=== PATIENT | male | born 1960 | race Caucasian/White ===

== ENCOUNTER → 2018-03-15 09:00 | Outpatient (CLI) | payer MEDICAID, SELFPAY ==
--- NOTE | 2018-03-15 09:06 | US_ITS ---
US abdomen limited History:Right upper quadrant pain and vomiting Ordering Physician:Татьяна Payan Patient Age: 57 years Comparison:None Findings: Pancreas:Unremarkable. No obvious mass or abnormal fluid collection. No ductal dilatation Liver:No focal liver lesions demonstrated. Homogeneous echogenicity. No intrahepatic biliary ductal dilatation evident. There is some scattered areas of increased echogenicities suggesting fatty liver Right Kidney:Unremarkable. Normal size and echogenicity. No hydronephrosis Gallbladder:Gallstones are present. No gallbladder wall thickening or pericholecystic fluid or biliary dilatation. Common bile duct measures 4 mm Impression:Cholelithiasis
== END ==
PROVIDERS: PCP Nurse Practitioner; Visit Provider Nurse Practitioner
DX: R11.0 Nausea (principal)
CPT/HCPCS: 76705

== ENCOUNTER → 2018-04-06 08:47 | Outpatient (CLI) | payer MEDICAID, SELFPAY ==
[2018-04-05 15:34] LABS: Basophils # 0.1 K/mm3 (0-0.2); Basophils % 1.1 % (0.1-2.0); Eosinophils # 0.2 K/mm3 (0.0-0.4); Eosinophils % 2.8 % (0.1-12.0); Hemoglobin 14.9 g/dL (14.1-18.0); Lymphocytes # 1.5 K/mm3 (0.7-4.5); Lymphocytes % 20.1 K/mm3 (10-50); Mean Corpuscular HGB Conc 32.4 g/dL (31.8-35.4); Mean Corpuscular Volume 86.3 fl (80-94); Mean Platelet Volume 7.5 fl (7.4-10.4); Monocytes # 0.4 K/mm3 (0.1-1.0); Monocytes % 5.2 % (1.7-9.3); Neutrophils # 5.3 K/mm3 (1.8-7.8); Neutrophils % 70.8 % (37.0-80.0); Platelet Count 251 K/mm3 (142-424); Red Blood Count 5.33 M/mm3 (4.60-6.20); Red Cell Distribution Width 14.8 % (11.5-17.5); White Blood Count 7.4 K/mm3 (4.8-10.8)
== END ==
PROVIDERS: PCP Nurse Practitioner; Visit Provider Surgery
DX: K81.1 Chronic cholecystitis (principal)
CPT/HCPCS: 36415; 85025

== ENCOUNTER → 2018-05-30 13:44 | Outpatient (CLI) | payer MEDICAID, SELFPAY ==
--- NOTE | 2018-05-30 13:50 | US_ITS ---
US scrotum Ordering Physician: Татьяна Payan Patient Age: 58 years: Male HISTORY: ITS.REASON: ENLARGEMENT OF SCROTOL SAC.. Pain less. First noted 4-5 weeks ago by caregiver TECHNIQUE: Ultrasound of the scrotum and right groin region COMPARISON :None available FINDINGS RIGHT INGUINAL MASS extending to the RIGHT HEMISCROTUM: The patient has a bulging mass at the right inguinal region extending down to the scrotum. He has no pain at the mass nor at at the scrotum..This was first noted 4-5 weeks ago by caregiver. This mass is relatively soft compressible; not hard nor firm. Visually I anticipated typical inguinal hernia but it is NOT.. This mass does not appear to be bowel loop or a typical hernia on ultrasound examination.. No peristalsis or movement within it This very large mass has a more homogeneous echogenic solid mass appearance., With no peristalsis to suggest bowel loops. Modest color Doppler flow observed.. In fact on ultrasound we are suspect it is a large solid mass or Lipoma.... Stool within large bowel also considered but would expect the patient to have greater abdominal distention and abdominal pain and he does not.... Recommend a CT abdomen/pelvis with oral and IV contrast further evaluate this mass at right groin] . This mass measures over 15 cm length X over 13 cm transverse measurement. But is likely overall larger this since it was beyond the span and scope of the transducer [id number] RIGHT HEMISCROTUM: The right testicle shows lack of color Doppler flow which is suggestive of torsion. I personally observe scanning to this area. However the patient has no pain here... I discussed this finding with Татьяна Martinez . & Encouraged, urology follow-up tomorrow Wednesday.. The fact the patient had no pain and symptoms and findings of an here for one month may disc less critically urgent,. Particularly in this patient. Question that this large left groin mass is compromised the artery and vein to left testicle. Long-standing . RIGHT TESTICLE is generous in size measuring 4.6 cm in length as 3.45 cm x 2.6 cm.. However there is no testicular mass or inhomogeneous as can be seen with a missed torsion. Actually the right testicle is very homogeneous only slightly larger than the left but with no edematous appearance appreciable ultrasound ... Cystic area above the left testicle is most likely a Spermatocele. Partially septated. This measures up to at nearly 3 cm x 1.5 cm cm.. Small hydrocele surrounding the right testicle otherwise noted. The head of the epididymis appears normal 1.15 cm, as does the remainder epididymis. . LEFT HEMISCROTUM. large cystic area above the left testicle is most likely a spermatocele... This measures up to nearly 3 cm x 2 cm. A second small spermatocele measuring 7.5 mm also seen at the head of epididymis. Otherwise the solid Head of epididymis in this area measures 1.2 cm.. The remainder of epididymis unremarkable on left LEFT TESTICLE:measures 3.9 x 3.1 x 2.3 cm. No left testicular mass is evident. In contrast to the right the left testicle demonstrates normal color Doppler flow. .. IMPRESSION 1. Very large over 15 cm mass right groin extending to the scrotum displacing the testicles leftward.. ... On ultrasound appearance suggests large solid mass,....- Recommend CT abdomen/pelvis with oral & IV contrast to further characterize. Considerations include large amount fixed solid stool within a loop of inguinal hernia- vs possible Large Lipoma.. This is long-standing feature, but was first noted 4-6 weeks ago by caregiver. Patient is not tender in this area with no testicular tenderness. 2. Lack of color Doppler flow to the right testicle-typically is suggestive torsion right testicle. However patien
== END ==
PROVIDERS: PCP Nurse Practitioner; Visit Provider Nurse Practitioner
DX: N50.89 Other specified disorders of the male genital organs (principal)
CPT/HCPCS: 76870

== ENCOUNTER → 2018-06-01 09:40 | Outpatient (CLI) | payer MEDICAID, SELFPAY ==
[2018-06-01 10:05] LABS: Blood Urea Nitrogen 12 mg/dL (7-18); Creatinine,Serum 1.06 mg/dL (0.70-1.30); Estimated Glomerular Filt Rate 72 ml/min (>60); GFR (African American) 87 ML/MIN (>60)
--- NOTE | 2018-06-01 10:10 | CT_ITS ---
CT abdomen pelvis w con CLINICAL INDICATION: Right upper quadrant pain ITS.REASON: MASS ORDERING PHYSICIAN: Татьяна Payan PATIENT AGE: 58 years COMPARISON: None TECHNIQUE: Axial images obtained with sagittal and coronal reformats. All CT scans at the facility use one or more dose reduction, viz: automated exposure control, ma/kV adjustment per patient size (including targeted exams where dose is matched to indication, i.e. head), or iterative reconstruction technique. PROCEDURE: Oral Contrast: None IV Contrast: 75 mL's of Isovue 370. FINDINGS: Atelectatic or fibrotic changes are present in the left lung base. Fatty liver. No focal liver lesions evident. Spleen, adrenal glands, and pancreas have an unremarkable appearance. A 10 mm stone is present in the lower pole left kidney. No hydronephrosis. No ureteral calculi. There is a retroaortic left renal vein. Scattered small lymph nodes are present in the retroperitoneum. There has been a prior cholecystectomy. No ductal dilatation. Postsurgical changes are present involving the intra-abdominal wall. There is small umbilical hernia containing fat. Diverticulosis of the descending colon. No evidence of diverticulitis. No evidence of appendicitis There is a moderate-sized fat-containing right inguinal hernia and a small fat-containing left inguinal hernia.. Asymmetric fat density is noted in the left lower lumbar and upper gluteal region consistent with a lipoma. IMPRESSION: 1. Left nephrolithiasis. 2. Fatty liver. No liver mass evident 3. Bilateral inguinal hernias right larger than left
== END ==
PROVIDERS: Visit Provider Nurse Practitioner
DX: R19.00 Intra-abdominal and pelvic swelling, mass and lump, unspecified site (principal)
CPT/HCPCS: 36415; 74177; 82565; 84520; Q9967

== ENCOUNTER → 2018-06-28 13:26 | Outpatient (CLI) | payer MEDICAID, SELFPAY ==
--- NOTE | 2018-06-28 13:29 | XR_ITS ---
XR KUB Ordering Physician: Medardo Bartlett MD Patient Age: 58 years: Male HISTORY: ITS.REASON: Kidney Stones Left flank pain. Kidney stone TECHNIQUE: AP supine KUB COMPARISON :Previous CT abdomen pelvis 06/01/2018 FINDINGS On the recent June 01, 2018 CT showed nephrolithiasis on left. . There is now a left ureteral stent in place. . The superior pigtail appears to extend to the upper pole of the left kidney. The inferior pigtail projected over the inferior bladder. Calculus at the lower pole of the left kidney is again identified it appears be more fragmented than previous studies with one of the larger thin fragments measuring over 8 mm today's plain film. Again it does appear to be relatively fragmented compared to June 01, 2018. Suspect reflecting interval lithotripsy procedure.? The right kidney unremarkable. . There is a nonspecific bowel gas pattern clips right upper quadrant from cholecystectomy. Osseous structures unremarkable. IMPRESSION: Left ureteral stent in place . This KUB suggest More fragmented of stone at the lower pole left kidney. Correlation required
== END ==
PROVIDERS: PCP Nurse Practitioner; Visit Provider Urology
DX: N20.0 Calculus of kidney (principal)
CPT/HCPCS: 74018

== ENCOUNTER → 2018-08-02 09:58 | Outpatient (CLI) | payer MEDICAID, SELFPAY ==
--- NOTE | 2018-08-02 10:01 | XR_ITS ---
XR KUB HISTORY: ITS.REASON: Kidney Stones ORDERING PHYSICIAN: Medardo Bartlett MD PATIENT AGE: 58 years COMPARISON: 06/28/2018 FINDINGS: The bowel gas pattern is unremarkable. No obvious obstruction.. Several small calculi noted along the lower pole of left kidney measuring up to 4 mm. No obvious ureteral calculi. Left ureteral stent has been removed. IMPRESSION: Left nephrolithiasis.
== END ==
PROVIDERS: PCP Nurse Practitioner; Visit Provider Urology
DX: N20.0 Calculus of kidney (principal)
CPT/HCPCS: 74018

== ENCOUNTER → 2018-11-29 10:52 | Outpatient (CLI) | payer MEDICAID, SELFPAY ==
--- NOTE | 2018-11-29 10:55 | XR_ITS ---
XR KUB HISTORY: ITS.REASON: kidney stones ORDERING PHYSICIAN: Medardo Bartlett MD PATIENT AGE: 58 years COMPARISON: 08/02/2018 FINDINGS: The bowel gas pattern is unremarkable. No obvious obstruction.. No abnormal calcifications are evident. No obvious renal or ureteral calculi.. No acute bony anomalies evident. Previously noted left renal calculi are apparent on today's exam IMPRESSION: Negative KUB, no acute finding
== END ==
PROVIDERS: PCP Nurse Practitioner; Visit Provider Urology
DX: N20.0 Calculus of kidney (principal)
CPT/HCPCS: 74018

== ENCOUNTER → 2019-05-30 13:01 | Outpatient (CLI) | payer MEDICAID, SELFPAY ==
--- NOTE | 2019-05-30 13:06 | XR_ITS ---
PROCEDURE: XR KUB CLINICAL INDICATION: stones COMPARISON: ABDPELW CT abdomen pelvis w con from 06/01/2018 FINDINGS: Gas pattern-The bowel gas pattern is unremarkable. No obvious obstruction. Calcifications-No abnormal calcifications are evident. No obvious renal or ureteral calculi. Bones-No acute bony anomalies evident. IMPRESSION: Negative KUB. No renal or ureteral calculi Dictated by: Fabián Arnold MD 05/30/2019 13:28 Electronically signed by Fabián Arnold MD in [place] 05/30/2019 13:28
== END ==
PROVIDERS: PCP Nurse Practitioner; Visit Provider Urology
DX: N20.0 Calculus of kidney (principal)
CPT/HCPCS: 74018

== ENCOUNTER 2019-12-18 08:42 | Inpatient (IN) | payer MEDICAID, SELFPAY ==
[2019-12-18] VITALS (27 sets, daily range): BP systolic 101–167; BP diastolic 55–106; PULSE 90–124; RESP 16–30; TEMP 36.2–43; O2SAT 94–100; BMI 29.9; BMI 34.8
--- NOTE | 2019-12-18 08:51 | ECG_ITS ---
APPROVED REPORT Exam: Resting ECG HR:109 bpm ECG Measurements Heart Rate 109 AXES OK 134 P 42 QRSd 86 QRS 82 QT 338 T 4 QTc 455 <Conclusion> Sinus tachycardia RSR' or QR pattern in V1 suggests right ventricular conduction delay NDST-T Changes Abnormal ECG Electronically signed by : Jose Carrion, 12/18/2019 11:07:42
--- NOTE | 2019-12-18 09:00 | CT_ITS ---
PROCEDURE: CT ABDOMEN PELVIS WO CON CLINICAL INDICATION: abdominal pain Abdominal pain with vomiting and fever COMPARISON: ABDPELW CT abdomen pelvis w con from 06/01/2018 TECHNIQUE: Axial images obtained with sagittal and coronal reformats. All CT scans at the facility use one or more dose reduction, viz: automated exposure control, ma/kV adjustment per patient size (including targeted exams where dose is matched to indication, i.e. head), or iterative reconstruction technique. FINDINGS: LOWER THORAX: Mild atelectatic changes in the lung bases. There is thickening of the distal esophagus with air in the distal esophagus which could be due to reflux or esophagitis. ABDOMEN & PELVIS: Exam is limited without IV and oral contrast. The stomach is fluid-filled and mildly distended with an air-fluid level in the stomach. There has been a prior cholecystectomy. The jejunum is fluid-filled with a few air-fluid levels. Air-fluid levels are present within the ileum with mild distention. There is a prominent distended loop of bowel in the right mid abdominal region possibly due to a cecal volvulus. The distal colon is decompressed. There is a small amount of ascites with fluid in the perihepatic region and right upper quadrant. The point of obstruction of the colon is actually in the proximal descending colon. There is a large right inguinal hernia containing peritoneal fat and peritoneal vessels. There is a smaller left inguinal hernia containing fat and a small amount of fluid. Payne catheter is present. There is a small amount fluid in the pelvic region. 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 Mild dilatation of the small bowel with air-fluid levels secondary to the obstruction of the colon. No obvious pneumatosis or portal gas. Bilateral inguinal hernias right larger than left containing fat vessels and a small amount fluid in the left inguinal hernia. Dr. Cope was notified of the findings by telephone 12/18/2019 at 11:30 a.m. Dictated by: Fabián Arnold MD 12/18/2019 11:44 Electronically signed by Fabián Arnold MD in [place] 12/18/2019 11:44
--- NOTE | 2019-12-18 09:00 | XR_ITS ---
PROCEDURE: XR CHEST AP CLINICAL HISTORY: sob Shortness of air, congestion COMPARISON: CXR CHEST(2 VIEWS-NOT PORTABLE) from 03/14/2013 FINDINGS: The cardiomediastinal silhouette and pulmonary vascularity are within normal limits. Surgical clips are present in the right paratracheal and left paratracheal region. Lungs are otherwise clear. Dilated loop of bowel noted in the right upper quadrant. Please see abdomen CT for further discussion IMPRESSION: No acute findings of the chest. Dilated loop of bowel in right upper quadrant Dictated by: Fabián Arnold MD 12/18/2019 12:06 Electronically signed by Fabián Arnold MD in [facility] 12/18/2019 12:06
--- NOTE | 2019-12-18 09:00 | CT_ITS ---
PROCEDURE: CT HEAD/BRAIN WO CON CLINICAL INDICATION: abdominal pain, confusion, SOB Altered mental status, altered level of consciousness, confusion, disorientation COMPARISON: No exams were available for comparison TECHNIQUE: Axial images obtained. All CT scans at the facility use one or more dose reduction, viz: automated exposure control, ma/kV adjustment per patient size (including targeted exams where dose is matched to indication, i.e. head), or iterative reconstruction technique. FINDINGS: No midline shift, mass effect, intracranial hemorrhage, hydrocephalus, or extra-axial fluid collection is evident. There is dense calcification involving the anterior aspect of the falx which is nonspecific. The calvarium has an unremarkable appearance. No mastoid effusion. There is opacified left mid ethmoid air cell. IMPRESSION: No acute intracranial finding Dictated by: Fabián Arnold MD 12/18/2019 11:22 Electronically signed by Fabián Arnold MD in [place] 12/18/2019 11:22
--- NOTE | 2019-12-18 09:13 | HMH.EDGENADL ---
ED Disposition Clinical Impression: Cecal volvulus Disposition: Admitted As Inpatient Condition on Discharge: Serious - Critical Care Critical Care Time: Yes Attestation: On 12/18/19, the high probability of a clinically significant, sudden or life threatening deterioration of the following system(s) required my full and direct attention, intervention and personal management. The time I documented below is in addition to time spent performing reported procedures but includes the following listed in this critical care notation. Vital system(s) involved:: Circulatory Failure My critical care processes included: Assessment & monitoring of V/S, Initial and Re-exams, Data Review/Interpretation, Coordinating Care, Documentation Medical Decision Making - Mateo Inquiry Pt receiving controlled substance: No Mateo was queried for this patient: No Vital Signs: 12/18/19 08:45 12/18/19 10:22 12/18/19 11:10 Temperature 99.7 F H Temperature Source Rectal Pulse Rate Pulse Rate [Right] 104 H 95 H 104 H Respiratory Rate 24 20 20 Blood Pressure Blood Pressure [Right Arm] 115/90 154/103 H 134/105 H Blood Pressure Mean [Right Arm] 98 120 114 Blood Pressure Source [Right Arm] Blood Pressure Position [Right Arm] Supine Supine 02 Sat by Pulse Oximetry 94 L 99 98 Oxygen Delivery Method Room Air Nasal Cannula Nasal Cannula Oxygen Flow Rate (LPM) 2 2 12/18/19 12:39 12/18/19 12:48 12/18/19 16:21 Temperature 98.2 F Temperature Source Pulse Rate 122 H 90 Pulse Rate [Right] 114 H Respiratory Rate 25 H 20 Blood Pressure 126/55 L Blood Pressure [Right Arm] 129/95 H Blood Pressure Mean [Right Arm] 106 Blood Pressure Source [Right Arm] Blood Pressure Position [Right Arm] Supine 02 Sat by Pulse Oximetry 97 Oxygen Delivery Method Nasal Cannula Oxygen Flow Rate (LPM) 2 12/18/19 16:30 12/18/19 16:45 12/18/19 17:00 Temperature 97.2 F L 97.2 F L 98.8 F Temperature Source Rectal Rectal Rectal Pulse Rate Pulse Rate [Right] 91 H 99 H 90 Respiratory Rate 20 20 18 Blood Pressure Blood Pressure [Right Arm] 167/106 H 163/101 H 133/98 H Blood Pressure Mean [Right Arm] 126 121 109 Blood Pressure Source [Right Arm] Manual Cuff/ Auscultation Automatic Cuff Automatic Cuff Blood Pressure Position [Right Arm] Supine Supine Supine 02 Sat by Pulse Oximetry 100 100 99 Oxygen Delivery Method Mechanical Ventilation Mechanical Ventilation Mechanical Ventilation Oxygen Flow Rate (LPM) 12/18/19 17:15 12/18/19 17:23 12/18/19 17:45 Temperature 98.9 F 98.2 F Temperature Source Rectal Rectal Pulse Rate Pulse Rate [Right] 91 H 95 H Respiratory Rate 22 20 Blood Pressure Blood Pressure [Right Arm] 125/86 121/81 Blood Pressure Mean [Right Arm] 99 94 Blood Pressure Source [Right Arm] Automatic Cuff Automatic Cuff Blood Pressure Position [Right Arm] Supine Supine 02 Sat by Pulse Oximetry 100 100 99 Oxygen Delivery Method Mechanical Ventilation Mechanical Ventilation Oxygen Flow Rate (LPM) 12/18/19 18:15 12/18/19 18:45 12/18/19 18:48 Temperature 98.7 F 98.9 F Temperature Source Rectal Rectal Pulse Rate Pulse Rate [Right] 100 H 100 H Respiratory Rate 20 22 Blood Pressure Blood Pressure [Right Arm] 129/90 116/81 Blood Pressure Mean [Right Arm] 103 92 Blood Pressure Source [Right Arm] Automatic Cuff Automatic Cuff Blood Pressure Position [Right Arm] Supine Supine 02 Sat by Pulse Oximetry 100 100 Oxygen Delivery Method Mechanical Ventilation Mechanical Ventilation Mechanical Ventilation Oxygen Flow Rate (LPM) 12/18/19 18:56 12/18/19 19:15 12/18/19 19:51 Temperature 97.9 F Temperature Source Rectal Pulse Rate Pulse Rate [Right] 107 H Respiratory Rate 30 H Blood Pressure Blood Pressure [Right Arm] 124/85 Blood Pressure Mean [Right Arm] 98 Blood Pressure Source [Right Arm] Automatic Cuff Blood Pressure Position [Right Arm] Supine 02
[2019-12-18 09:18] LABS: Appearance,Urine CLEAR (Clear); Blood, Urine Negative (Negative); Color,Urine AMBER (Yellow); Glucose,Urine (UA) Negative (Negative); Ketones,Urine TRACE (Negative); Leukocyte Esterase,Urine Negative (Negative); Microscopic, Urine URINE MICROSCOPIC (MICROSCOPIC); Nitrate,Urine Negative (Negative); Protein,Urine 2+ (Negative); Specific Gravity, Urine >= 1.030 (1.005-1.030)
[2019-12-18 09:22] LABS: ABG Base Excess -6.5 mmol/L (-2.4-2.3); ABG HCO3 17.1 mmhg (22.0-26.0); ABG Oxygen Saturation 96 % (90-100); ABG PCO2 24.1 mmhg (35.0-45.0); ABG PH 7.47 mmol/L (7.35-7.45); ABG PO2 77.2 mmhg (80-100); ABG TCO2 17.9 mmhg (23-27)
[2019-12-18 09:24] LABS: Oxygen ROOM AIR %; Source L BRACHIAL
--- NOTE | 2019-12-18 09:26 | PC.NURSE ---
Lab notified to obtain blood specimen
[2019-12-18 09:29] LABS: Bilirubin,Urine Negative (Negative)
[2019-12-18 09:38] LABS: Bacteria,Urine 1+ /lpf; Squamous Epithelial Cell,Urine Occasional #/hpf (0-5)
--- NOTE | 2019-12-18 10:00 | PC.NURSE ---
Lab here to obtain blood
[2019-12-18 10:20] LABS: Adenovirus,PCR Not Detected (NotDetected); Bordetella Pertussis Not Detected (NotDetected); Chlamydophila Pneumoniae, PCR Not Detected (NotDetected); Coronavirus 19, PCR Not Detected (NotDetected); Coronavirus 229E Not Detected (NotDetected); Coronavirus NL63 Not Detected (NotDetected); Coronavirus OC43 Not Detected (NotDetected); Coronovirus HKU1,PCR Not Detected (NotDetected); Human Metapneumovirus Not Detected (NotDetected); Influenza A, PCR Not Detected (NotDetected); Influenza AH1, 2009 Not Detected (NotDetected); Influenza AH1, PCR Not Detected (NotDetected); Influenza AH3,PCR Not Detected (NotDetected); Influenza B, PCR Not Detected (NotDetected); Mycoplasma Pneumoniae, PCR Not Detected (NotDected); Parainfluenza 1, PCR Not Detected (NotDetected); Parainfluenza 2, PCR Not Detected (NotDetected); Parainfluenza 3, PCR Not Detected (NotDetected); Parainfluenza 4, PCR Not Detected (NotDetected); Respiratory Syncytial Virus Not Detected (NotDetected); Rhinovirus/Enterovirus Not Detected (NotDetected)
[2019-12-18 10:23] LABS: Basophils % 0.2 % (0.1-2.0); Lymphocytes % 5.4 % (10-50)
--- NOTE | 2019-12-18 10:26 | PC.NURSE ---
CT scans delayed d/t difficulty to obtain blood samples, lab obtains blood samples at this time.
[2019-12-18 10:28] LABS: Chloride 103 mmol/L (98-107)
[2019-12-18 10:29] LABS: Eosinophils # 0.1 K/mm3 (0.0-0.4); Eosinophils % 0.7 % (0.1-12.0); Hematocrit 53.3 % (42.0-52.0); Lymphocytes # 0.8 K/mm3 (0.7-4.5); Mean Corpuscular HGB Conc 36.5 g/dL (31.8-35.4); Mean Corpuscular Hemoglobin 31.2 pg (27.0-31.2); Mean Corpuscular Volume 85.5 fl (80-94); Monocytes % 7.2 % (1.7-9.3); Neutrophils # 12.5 K/mm3 (1.8-7.8); Neutrophils % 86.6 % (37.0-80.0); Platelet Count 274 K/mm3 (142-424); Red Blood Count 6.24 M/mm3 (4.60-6.20); Red Cell Distribution Width 15.1 % (11.5-17.5); Sodium 139 mmol/L (136-145); White Blood Count 14.4 K/mm3 (4.8-10.8)
[2019-12-18 10:31] LABS: Alanine Aminotransferase 56 U/L (12-78); Alkaline Phosphatase 98 U/L (38-126); Aspartate Amino Transferase 51 U/L (17-59); Bilirubin,Total 2.2 mg/dl (0.2-1.3); Blood Urea Nitrogen 51 mg/dl (9-20); Carbon Dioxide 20 mmol/L (22.0-30.0); Creatinine Clearance Estimated 55 mL/min (50-200); Estimated Glomerular Filt Rate 42 ml/min (>60); GFR (African American) 50 ML/MIN (>60)
[2019-12-18 10:32] LABS: Albumin Level 4.2 g/dl (3.5-5.0); Albumin/Globulin Ratio 1.3 (1.1-1.8); Calcium 9.4 mg/dl (8.4-10.2); Globulin 3.2 g/dL (1.3-3.2); Glucose 170 mg/dl (74-100); Lipase 48 U/L (23-300); Total Protein,Serum 7.4 g/dl (6.3-8.2)
[2019-12-18 10:34] LABS: Lactic Acid 3.9 mmol/L (0.7-2.1)
[2019-12-18 10:35] LABS: Hemoglobin 19.5 g/dL (14.1-18.0)
[2019-12-18 10:36] LABS: MANUAL DIFFERENTIAL MANUAL DIFFERENTIAL (MANUAL DIFF)
--- NOTE | 2019-12-18 10:37 | PC.NURSE ---
notified that pt meets criteria for severe sepsis, states he wishes to give zosyn and vanc, notified pharm for dosing
--- NOTE | 2019-12-18 10:40 | PC.NURSE ---
Pt to rad
[2019-12-18 10:45] LABS: Troponin I 0.22 ng/ml (0.00-0.034)
[2019-12-18 10:49] LABS: Lymphocytes % 3 % (10-50); Monocytes % 7 % (2-9); Neutrophils % 90 % (42-76); Total Cells Counted 100
[2019-12-18 10:50] LABS: Free T4 (Free Thyroxine) 1.86 ng/dl (0.78-2.19); Platelet Estimate Normal; RBC Morphology Normal
[2019-12-18 11:04] LABS: Thyroid Stimulating Hormone 3.45 uIU/mL (0.465-4.68)
[2019-12-18 11:23] LABS: Coronavirus 19 IgG Antibody Negative (Negative); Coronavirus 19 IgM Antibody Negative (Negative)
--- NOTE | 2019-12-18 11:32 | PC.NURSE ---
speaking to Dr Arnold
--- NOTE | 2019-12-18 11:37 | PC.NURSE ---
Notified Dr Good office of need for consult with ER MD, stated they would have him call us back
--- NOTE | 2019-12-18 11:42 | PC.NURSE ---
Dr Cope consulting with Dr Good
--- NOTE | 2019-12-18 12:08 | PC.NURSE ---
DR WILEY AT BEDSIDE
--- NOTE | 2019-12-18 12:33 | HMH.GSCON ---
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 He is a poor historian. He reportedly complained of somewhat of an upset stomach a couple of days ago. However, his symptoms of diminished appetite with nausea had increased and his guardian felt that he needed medical care. He was brought to the emergency department where he was seen and evaluated. He was found to have findings of dehydration and acidosis. He underwent CT scan which revealed findings with cecal volvulus and some ascites. Surgical consultation was obtained. Review of Systems - Review of Systems Review of systems:: unable to obtain [facility] History I have reviewed the patient's past medical history: Yes Medical History: Reports:: Hyperlipidemia, Hypertension Denies:: Cancer, Diabetes Mellitus Type 1, Diabetes Mellitus Type 2, Internal Pacemaker, MRSA, Seizures *Have you ever received a pneumonia vaccine?: No *Have you received a flu vaccine this season?: No Other Medical History: Reports: Hypothyroidism. Denies: Blood Transfusion Reaction Laterality Cases: Bilateral: Tonsillectomy Other Surgeries: Yes: Cholecystectomy, Thyroidectomy. No: Pacemaker Amputation: No Fractures: No - *Social History Smoking Status: Never smoker Alcohol Intake: never Substance Use Type: denies use *Occupational Status:: disabled Housing: house Household Members: family *Travel in the last 8 weeks: None Family Hx:: Unable to obtain Meds Home Medications Medication Instructions Recorded Confirmed Type Dicyclomine HCl [Bentyl 10mg 0 mg PO DAILY 04/29/18 05/30/19 History capsule] Garlic 1 each PO DAILY 04/29/18 05/30/19 History Levothyroxine Sodium 125 mcg PO DAILY 04/29/18 05/30/19 History [Levothyroxine 125mcg (0.125mg) Tab] Metoprolol Tartrate 50 mg PO DAILY 04/29/18 05/30/19 History Montelukast Sodium [Montelukast 10 mg PO DAILY 04/29/18 05/30/19 History 10mg Tab] [place]-3 Acid Ethyl Esters 1 gm PO DAILY 04/29/18 05/30/19 History Allergies Allergy/AdvReac Type Severity Reaction Status Date / Time No Known Allergies Allergy Verified 05/30/19 12:27 Exam Vital signs and Labs for Last 24 Hours: Temp Pulse Resp BP Pulse Ox 99.7 F H 104 H 20 134/105 H 98 12/18/19 08:45 12/18/19 11:10 12/18/19 11:10 12/18/19 11:10 12/18/19 11:10 Laboratory Results - last 24 hr 12/18/19 09:10: Urine Color Stephania, Urine Appearance Clear, Urine pH 6.0, Ur Specific [place] >= 1.030, Urine Protein 2+, Urine Glucose (UA) Negative, Urine Ketones Trace, Urine Blood Negative, Urine Nitrate Negative, Urine Bilirubin Negative, Urine Urobilinogen 1.0, Ur Leukocyte Esterase Negative, Urine RBC 3-5, Urine WBC 3-5, Ur Squamous Epith Cells Occasional, Urine Bacteria 1+ 12/18/19 09:20: Specimen Source L brachial, O2 % Room air, ABG pH 7.47 H, ABG pCO2 24.1 L, ABG pO2 77.2 L, ABG HCO3 17.1 L, ABG Total CO2 17.9 L, ABG O2 Saturation 96, ABG Base Excess -6.5 L 12/18/19 10:10: WBC 14.4 H, RBC 6.24 H, Hgb 19.5 H*, Hct 53.3 H, MCV 85.5, MCH 31.2, MCHC 36.5 H, RDW 15.1, Plt Count 274, MPV 9.0, Neut % (Auto) 86.6 H, Lymph % (Auto) 5.4 L, [place] % (Auto) 7.2, Eos % (Auto) 0.7, Baso % (Auto) 0.2, Neut # (Auto) 12.5 H, Lymph # (Auto) 0.8, [place] # (Auto) 1.0, Eos # (Auto) 0.1, Baso # (Auto) 0.0, Total Counted 100, Neutrophils % (Manual) 90 H, Lymphocytes % (Manual) 3 L, Monocytes % (Manual) 7, Platelet Estimate Normal, RBC Morphology Normal 12/18/19 10:10: Sodium 139, Potassium 3.0 L, Chloride 103, Carbon Dioxide 20 L, Anion Gap 19.0 H, BUN 51 H, Creatinine 1.70 H, Estimated Creat Clear 55, Estimated GFR 42 L, Est GFR ( Amer) 50 L, Glucose 170 H, Calcium 9.4, Total Bilirubin 2.2 H, AST 51, ALT 56, Alkaline Phosphatase 98, Troponin I 0.22 H, Total Protein 7.4, Albumin 4.2, Globulin 3.2, Albumin/Globulin Rati
--- NOTE | 2019-12-18 12:37 | PC.NURSE ---
Surgery stated to hold vanc for preop so will not be infused until before surgery
--- NOTE | 2019-12-18 12:51 | PC.NURSE ---
Pt to surgery at this time
--- NOTE | 2019-12-18 12:53 | PC.NURSE ---
CALLING DR ERAZO AT THIS TIME
--- NOTE | 2019-12-18 12:53 | PC.NURSE ---
speaking to dr baer
--- NOTE | 2019-12-18 12:54 | PC.NURSE ---
SPEAKING WITH DR ERAZO
[2019-12-18 14:18] LABS: Reflex Lactic Add Lactic Reflex
--- NOTE | 2019-12-18 15:07 | P.CONPHA_ITS ---
[facility] Pharmacy VTE Monitoring - Patient Demographics Admission date: 12/18/19 Report Date: 12/18/19 Time: 15:07 Allergies/Adverse Reactions: Patient Allergies No Known Allergies Allergy (Verified 05/30/19 12:27) Height: 1.65 m Weight: 81.647 kg Patient Problems: Current Active Problems Cecal volvulus (Acute) - VTE Risk Labs: VTE Related Lab Results Hgb 19.5 g/dL (14.1-18.0) H* 12/18/19 10:10 Hct 53.3 % (42.0-52.0) H 12/18/19 10:10 Plt Count 274 K/mm3 (142-424) 12/18/19 10:10 BUN 51 mg/dl (9-20) H 12/18/19 10:10 Creatinine 1.70 mg/dl (0.66-1.25) H 12/18/19 10:10 Estimated Creat Clear 55 mL/min (50-200) 12/18/19 10:10 Clinical Trial Participant: No - Prophylaxis VTE Prophylaxis Ordered?: Yes Types of VTE Prophylaxis: TEDS Knee High
--- NOTE | 2019-12-18 15:24 | HMH.OPNOTE ---
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 History difficult to obtain from the patient. He was brought to the emergency department due to abdominal pain. It was felt that he was cold and clammy and the caregivers brought him to the emergency department where he was evaluated. His work-up included CT scan which revealed findings of cecal volvulus. Surgery was consulted. Patient was found to be significantly ill with signs of significant dehydration and acidosis with focal peritonitis in the right upper quadrant. Plan was made for laparotomy for cecal volvulus with possible necrosis. 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 Cecum was in the right upper quadrant. There was evidence of cecal volvulus with full-thickness necrosis of the cecum without perforation. Cecum was quite foul-smelling. Operative note:: Patient was taken emergently to the operating room. He was given preoperative intravenous antibiotics. In the operating room he was placed in a supine position. General anesthesia was induced via endotracheal tube. His abdomen was prepped and draped in standard surgical fashion. Upper midline laparotomy incision was made and dissection was carried down through the generous subcutaneous tissues to the fascia. Fascia was incised with electrocautery. There was some dark somewhat hemorrhagic fluid aspirated from the abdominal cavity. Exposure was achieved with extension of the incision superiorly and inferiorly. Bowel was somewhat distended and edematous. Abdominal exploration revealed necrotic gangrenous cecum essentially tightly impacted in the right upper quadrant. With some gentle traction this was able to be delivered through the wound. 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 The ileum was divided with a DESIREE linear cutting stapling device. Colon Distal to the area of volvulus and necrosis was divided with a DESIREE 75 stapling device. Mesentery was divided with the Enseal with doubly ligating vascular structures with 0 Surgilon. Gangrenous necrotic cecum was sent off as specimen. Attention was then turned to re-anastomosis. However, given the patient's chronic malrotation of the gut to allow for anastomosis without kinking additional small bowel was excised with DESIREE linear cutting stapling device with small bowel mesentery divided with the Enseal. A rpll-py-asek anastomosis was then created with a DESIREE-75 type stapling device. The enterotomy defect was then closed with a TA 60 be stapling device. Staple line was reinforced at its angle with a couple of 3-0 Surgilon sutures. Due to the patient's chronic congenital anomaly as well as small bowel mesentery initially was somewhat difficult to allow the anastomosis to lie in the position which would prevent kinking of the small bowel. Additional exploration was carried out. Please note that the omentum originated from the left upper abdomen where the transverse colon was likely located. Ultimately the small bowel anastomosis was oriented into the region of the right lower quadrant with the omentum in the left abdomen. There appeared to be good hemostasis. Fascia was closed with #2 Novafil x2. Subcutaneous tissues were irrigated. Skin was closed with skin rosenda. Clean dry sterile dressing was applied. Condition: stable Disposition: PACU Specimens:: Right colon/cecum Complications:: None immediately apparent
--- NOTE | 2019-12-18 16:27 | SUR.PHASEI ---
1600-Pt transported to Room 218 per Lillie Smart CRNA, RN & April ORTIZ. Pt remains intubated. Pt is awake but drowsy and disoriented. NG Tube to Right nare with brown/green drainage to low continuous wall suction. VSS. BP: 159/80, HR: 95, RR:10, Sat: 99%on 100% O2, Temp 97.2 Rectally. Abdominal dressing with minimal drainage noted. Peripheral pulse are strong and equal. Skin is cool to touch. SCD's applied bilaterally. Alannah paws applied. #20 gauge IV patent to right forearm. F/C draining cloudy yellow urine. Report given to Alejandra ORTIZ at bedside. 1610-Pt is awake and disoriented. Pt has began moving upper extremities and becoming more agitated. BP: 173/111, HR: 93 O2: 100% on ventilator, RR: 10. No changes noted to abdominal dressing. SCD's remain in place bilaterally. F/C patent and draining. IV patent. NG tube still draining brown/green stomach contents. 1620-Pt remains slightly agitated. BP: 167/106 HR: 93 O2: 100%. No changes noted to abd dressing. Alannah paws remains in place. F/C patent and draining. IV patent. SCD's remain in place bilaterally. Pt is stable at this time. Pt is left in the care of Alejandra ORTIZ at this time.
[2019-12-18 16:43] LABS: Lactic Acid Follow Up (RFLX 1) 3.9 mmol/L (0.7-2.1)
[2019-12-18 16:52] LABS: Troponin I 0.41 ng/ml (0.00-0.034)
[2019-12-18 17:15] LABS: ABG Base Excess -2.4 mmol/L (-2.4-2.3); ABG Oxygen Saturation 99 % (90-100); ABG PCO2 40.8 mmhg (35.0-45.0); ABG PH 7.37 mmol/L (7.35-7.45); ABG TCO2 24.2 mmhg (23-27)
[2019-12-18 17:16] LABS: Allen's Test Patient Unable; Oxygen 100 %; PEEP 5; Tidal Volume 500; Vent Rate 10
[2019-12-18 17:17] LABS: Source Left Radial
--- NOTE | 2019-12-18 17:22 | HMH.HP ---
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 He is a poor historian. He reportedly complained of somewhat of an upset stomach a couple of days ago. However, his symptoms of diminished appetite with nausea had increased and his guardian felt that he needed medical care. He was brought to the emergency department where he was seen and evaluated. He was found to have findings of dehydration and acidosis. He underwent CT scan which revealed findings with cecal volvulus and some ascites. The above is from the surgical consultation of Dr. Good. Patient is currently postop and sedated on a ventilator. I did speak with his guardian, Wilma Cordoba, who endorses the patient seemed to be feeling poorly for a few days although because he is mostly nonverbal was not able to provide much information regarding illness. Finally he looked so sick that he was brought to the emergency department. Past medical history: Patient is mentally challenged although the exact nature of his cognitive disability is unknown according to his guardian [facility] History I have reviewed the patient's past medical history: Yes Medical History: Reports:: Hyperlipidemia, Hypertension Denies:: Cancer, Diabetes Mellitus Type 1, Diabetes Mellitus Type 2, Internal Pacemaker, MRSA, Seizures *Have you ever received a pneumonia vaccine?: No *Have you received a flu vaccine this season?: No Other Medical History: Reports: Hypothyroidism. Denies: Blood Transfusion Reaction Laterality Cases: Bilateral: Tonsillectomy Other Surgeries: Yes: Cholecystectomy, Thyroidectomy. No: Pacemaker Amputation: No Fractures: No - *Social History Smoking Status: Never smoker Alcohol Intake: never Substance Use Type: denies use *Occupational Status:: disabled Housing: house Household Members: family *Travel in the last 8 weeks: None Family Hx:: Unable to obtain Review of Systems - Review of Systems Review of systems:: unable to obtain Meds Home Medications Medication Instructions Recorded Confirmed Type Dicyclomine HCl [Bentyl 10mg 0 mg PO DAILY 04/29/18 05/30/19 History capsule] Garlic 1 each PO DAILY 04/29/18 05/30/19 History Levothyroxine Sodium 125 mcg PO DAILY 04/29/18 05/30/19 History [Levothyroxine 125mcg (0.125mg) Tab] Metoprolol Tartrate 50 mg PO DAILY 04/29/18 05/30/19 History Montelukast Sodium [Montelukast 10 mg PO DAILY 04/29/18 05/30/19 History 10mg Tab] [place]-3 Acid Ethyl Esters 1 gm PO DAILY 04/29/18 05/30/19 History Allergies Allergy/AdvReac Type Severity Reaction Status Date / Time No Known Allergies Allergy Verified 05/30/19 12:27 Exam Vital signs and Labs for Last 24 Hours: Temp Pulse Resp BP Pulse Ox 98.2 F 122 H 20 126/55 L 97 12/18/19 12:48 12/18/19 12:48 12/18/19 12:48 12/18/19 12:48 12/18/19 12:39 Laboratory Results - last 24 hr 12/18/19 09:10: Urine Color Stephania, Urine Appearance Clear, Urine pH 6.0, Ur Specific [place] >= 1.030, Urine Protein 2+, Urine Glucose (UA) Negative, Urine Ketones Trace, Urine Blood Negative, Urine Nitrate Negative, Urine Bilirubin Negative, Urine Urobilinogen 1.0, Ur Leukocyte Esterase Negative, Urine RBC 3-5, Urine WBC 3-5, Ur Squamous Epith Cells Occasional, Urine Bacteria 1+ 12/18/19 09:20: Specimen Source L brachial, O2 % Room air, ABG pH 7.47 H, ABG pCO2 24.1 L, ABG pO2 77.2 L, ABG HCO3 17.1 L, ABG Total CO2 17.9 L, ABG O2 Saturation 96, ABG Base Excess -6.5 L 12/18/19 10:10: WBC 14.4 H, RBC 6.24 H, Hgb 19.5 H*, Hct 53.3 H, MCV 85.5, MCH 31.2, MCHC 36.5 H, RDW 15.1, Plt Count 274, MPV 9.0, Neut % (Auto) 86.6 H, Lymph % (Auto) 5.4 L, [place] % (Auto) 7.2, Eos % (Auto) 0.7, Baso % (Auto) 0.2, Neut # (Auto) 12.5 H, Lymph # (Auto) 0.8, [place] # (Auto) 1.0, Eos # (Auto) 0.1, Baso # (Auto) 0.0, Total Counted 100, Neutrophils
[2019-12-18 18:27] LABS: Reflex Lactic (2 hrs) Add Lactic Reflex
--- NOTE | 2019-12-18 18:59 | PC.NURSE ---
Addendum entered by Yoselyn Walker RT 12/18/19 19:00: weaned FIO2 to 40% per verbal Ramsey Original Note: RT - ET tube sxd no sputum produced for collection
[2019-12-18 19:12] LABS: Lactic Acid Follow up (RFLX 2) 2.7 mmol/L (0.7-2.1)
--- NOTE | 2019-12-18 19:14 | PC.NURSE ---
report given to magdy
--- NOTE | 2019-12-18 20:40 | PC.NURSE ---
1645- propofol intiated at 5mcg 1700- increased propofol to 10mcg 1800- increased propofol to 12mcg
--- NOTE | 2019-12-18 21:32 | ECG_ITS ---
APPROVED REPORT Exam: Resting ECG HR:105 bpm ECG Measurements Heart Rate 105 AXES CO 124 P 77 QRSd 80 QRS -42 QT 340 T 75 QTc 449 <Conclusion> Sinus tachycardia Left axis deviation Pulmonary disease pattern RSR' or QR pattern in V1 suggests right ventricular conduction delay Nonspecific ST abnormality Abnormal ECG Electronically signed by : Jose Carrion, 12/19/2019 13:13:31
--- NOTE | 2019-12-18 21:40 | PC.NURSE ---
vent settings changed per verbal MD order
--- NOTE | 2019-12-18 21:57 | PC.NURSE ---
2114 dr. alvarado notified of rapid respiratory rate, tachycardia, low urine output, vent settings, diprivan setting. will review chart and return call.
--- NOTE | 2019-12-18 21:59 | PC.NURSE ---
[address] alvarado, new orders received.
--- NOTE | 2019-12-18 22:00 | PC.NURSE ---
2130 respiratory at bedside making vent changes per new orders and obtaining ekg., lab at bedside as well. 1 lter lr bolus initiated. patient now diaphoretic, rectal temp done with reading of 100. will continue to monitor
--- NOTE | 2019-12-18 22:07 | PC.NURSE ---
[address] alvarado for analysis. will continue to monitor.
[2019-12-18 22:13] LABS: ABG Base Excess -1.1 mmol/L (-2.4-2.3); ABG HCO3 22.6 mmhg (22.0-26.0); ABG Oxygen Saturation 97 % (90-100); ABG PCO2 31.7 mmhg (35.0-45.0); ABG PH 7.47 mmol/L (7.35-7.45); ABG PO2 86.9 mmhg (80-100); ABG TCO2 23.5 mmhg (23-27)
[2019-12-18 22:15] LABS: Oxygen 30 %
[2019-12-18 22:16] LABS: Allen's Test acceptable; Source Right Radial
--- NOTE | 2019-12-18 23:29 | PC.NURSE ---
[address] alvarado, patient status update given, no new orders received.
[2019-12-19] VITALS (24 sets, daily range): BP systolic 100–177; BP diastolic 64–85; PULSE 72–120; RESP 10–20; TEMP 35.5–38.3; O2SAT 95–99
--- NOTE | 2019-12-19 00:44 | PC.NURSE ---
1914 diprivan increased up to 13mcq/kg/min for respiratory rate 30 a minute.
--- NOTE | 2019-12-19 00:45 | PC.NURSE ---
1929 diprivan increased to 15 mcq/kg/min for respiratory rate of 30.
--- NOTE | 2019-12-19 00:46 | PC.NURSE ---
2029 diprivan increased to 20 mcq/kg/min for respiratory rate 30 and heart rate 125. will continue to monitor.
--- NOTE | 2019-12-19 00:47 | PC.NURSE ---
diprivan drip decreaed to 15 mcq/kg/min, heart rate 105, resp rate 16 and blood pressure 95 systolic. will continue to monitor.
--- NOTE | 2019-12-19 06:03 | PC.NURSE ---
shift summary vent settings changed at the beginning of the shift due to rapid rr and low tidal volumes. fluid bolus given at that time as well for low urine output and rapid heart rate. since that time, heart rate has been 90s low 100s and urine output has been 30-40 ml hr. respiratory rate has maintained 16 to 18. rectal temperatures have been 99 to 100.9. acetaminophen suppository given x 2. ngt drainage brown at beginning of shift, lightened up to clear to newberry in color later in shift.
--- NOTE | 2019-12-19 06:10 | PC.NURSE ---
diprivan drip now at 10 mcq/kg/min, patient opens eyes when someone enters room.
[2019-12-19 06:16] LABS: Eosinophils # 0.1 K/mm3 (0.0-0.4); Monocytes # 0.7 K/mm3 (0.1-1.0); Neutrophils % 84.9 % (37.0-80.0)
--- NOTE | 2019-12-19 06:41 | PC.NURSE ---
dr. morrow at bedside, assessment complete.
[2019-12-19 06:42] LABS: Basophils % 0.2 % (0.1-2.0); Eosinophils % 0.5 % (0.1-12.0); Hematocrit 44.3 % (42.0-52.0); Lymphocytes # 1.1 K/mm3 (0.7-4.5); Lymphocytes % 8.9 % (10-50); Mean Corpuscular HGB Conc 33.8 g/dL (31.8-35.4); Mean Corpuscular Hemoglobin 29.6 pg (27.0-31.2); Mean Corpuscular Volume 87.6 fl (80-94); Mean Platelet Volume 8.5 fl (7.4-10.4); Monocytes % 5.5 % (1.7-9.3); Neutrophils # 10.1 K/mm3 (1.8-7.8); Platelet Count 207 K/mm3 (142-424); Red Blood Count 5.05 M/mm3 (4.60-6.20); Red Cell Distribution Width 15.3 % (11.5-17.5); White Blood Count 11.9 K/mm3 (4.8-10.8)
[2019-12-19 06:44] LABS: Chloride 104 mmol/L (98-107)
[2019-12-19 06:45] LABS: Potassium 3.5 mmoL/L (3.5-5.1); Sodium 138 mmol/L (136-145)
[2019-12-19 06:46] LABS: Hemoglobin 14.9 g/dL (14.1-18.0)
[2019-12-19 06:47] LABS: Blood Urea Nitrogen 48 mg/dl (9-20); Creatinine Clearance Estimated 77 mL/min (50-200); Estimated Glomerular Filt Rate 52 ml/min (>60); GFR (African American) 63 ML/MIN (>60)
[2019-12-19 06:48] LABS: Anion Gap 9.5 mEq/L (5-15); Carbon Dioxide 28 mmol/L (22.0-30.0); Glucose 121 mg/dl (74-100)
--- NOTE | 2019-12-19 06:56 | HMH.GSPN ---
Subjective Narrative: Patient mechanically ventilated on propofol drip. Exam Vital signs and Labs for Last 24 Hours: Temp Pulse Resp BP Pulse Ox 99.6 F 97 H 16 109/75 L 98 12/19/19 06:00 12/19/19 06:00 12/19/19 06:00 12/19/19 06:00 12/19/19 06:00 Laboratory Results - last 24 hr 12/18/19 09:10: Urine Color Stephania, Urine Appearance Clear, Urine pH 6.0, Ur Specific [place] >= 1.030, Urine Protein 2+, Urine Glucose (UA) Negative, Urine Ketones Trace, Urine Blood Negative, Urine Nitrate Negative, Urine Bilirubin Negative, Urine Urobilinogen 1.0, Ur Leukocyte Esterase Negative, Urine RBC 3-5, Urine WBC 3-5, Ur Squamous Epith Cells Occasional, Urine Bacteria 1+ 12/18/19 09:20: Specimen Source L brachial, O2 % Room air, ABG pH 7.47 H, ABG pCO2 24.1 L, ABG pO2 77.2 L, ABG HCO3 17.1 L, ABG Total CO2 17.9 L, ABG O2 Saturation 96, ABG Base Excess -6.5 L 12/18/19 10:10: WBC 14.4 H, RBC 6.24 H, Hgb 19.5 H*, Hct 53.3 H, MCV 85.5, MCH 31.2, MCHC 36.5 H, RDW 15.1, Plt Count 274, MPV 9.0, Neut % (Auto) 86.6 H, Lymph % (Auto) 5.4 L, [place] % (Auto) 7.2, Eos % (Auto) 0.7, Baso % (Auto) 0.2, Neut # (Auto) 12.5 H, Lymph # (Auto) 0.8, [place] # (Auto) 1.0, Eos # (Auto) 0.1, Baso # (Auto) 0.0, Total Counted 100, Neutrophils % (Manual) 90 H, Lymphocytes % (Manual) 3 L, Monocytes % (Manual) 7, Platelet Estimate Normal, RBC Morphology Normal 12/18/19 10:10: Sodium 139, Potassium 3.0 L, Chloride 103, Carbon Dioxide 20 L, Anion Gap 19.0 H, BUN 51 H, Creatinine 1.70 H, Estimated Creat Clear 55, Estimated GFR 42 L, Est GFR ( Amer) 50 L, Glucose 170 H, Calcium 9.4, Total Bilirubin 2.2 H, AST 51, ALT 56, Alkaline Phosphatase 98, Troponin I 0.22 H, Total Protein 7.4, Albumin 4.2, Globulin 3.2, Albumin/Globulin Ratio 1.3, Lipase 48, TSH 3.45 12/18/19 10:10: Lactate 3.9 H 12/18/19 10:10: Free T4 1.86 12/18/19 10:10: SARS-CoV-2 IgG Ab (Rapid) Negative, SARS-CoV-2 IgM Ab (Rapid) Negative 12/18/19 10:10: Chlamy pneumoniae PCR Not detected, Adenovirus (PCR) Not detected, B. pertussis DNA (PCR) Not detected, Coronavirus OC43 (PCR) Not detected, Coronavirus HKU1 (PCR) Not detected, Coronavirus 229E (PCR) Not detected, COVID-19 PCR Not detected, Coronavirus NL63 (PCR) Not detected, Human Metapneumovir PCR Not detected, Influenza A (H1) PCR Not detected, Influ A (H1N1/09) PCR Not detected, Influenza A (H3) PCR Not detected, Influenza Type A (PCR) Not detected, Influenza Type B (PCR) Not detected, M. pneumoniae (PCR) Not detected, Parainfluenza 1 (PCR) Not detected, Parainfluenza 2 (PCR) Not detected, Parainfluenza 3 (PCR) Not detected, Parainfluenza 4 (PCR) Not detected, RSV (PCR) Not detected, Entero/Rhino (PCR) Not detected 12/18/19 16:23: Troponin I 0.41 H 12/18/19 16:23: Lactate 3.9 H 12/18/19 17:10: Specimen Source Left radial, O2 % 100, ABG pH 7.37, ABG pCO2 40.8, ABG pO2 326.0 H, ABG HCO3 23.0, ABG Total CO2 24.2, ABG O2 Saturation 99, ABG Base Excess -2.4, Fabián Test Patient unable, Vent Rate 10, Tidal Volume 500, PEEP 5 12/18/19 18:45: Lactate 2.7 H 12/18/19 21:44: Troponin I 0.40 H 12/18/19 22:05: Specimen Source Right radial, O2 % 30, ABG pH 7.47 H, ABG pCO2 31.7 L, ABG pO2 86.9, ABG HCO3 22.6, ABG Total CO2 23.5, ABG O2 Saturation 97, ABG Base Excess -1.1, Fabián Test acceptable 12/19/19 05:25: WBC 11.9 H, RBC 5.05, Hgb 14.9 D, Hct 44.3, MCV 87.6, MCH 29.6, MCHC 33.8, RDW 15.3, Plt Count 207, MPV 8.5, Neut % (Auto) 84.9 H, Lymph % (Auto) 8.9 L, [place] % (Auto) 5.5, Eos % (Auto) 0.5, Baso % (Auto) 0.2, Neut # (Auto) 10.1 H, Lymph # (Auto) 1.1, [place] # (Auto) 0.7, Eos # (Auto) 0.1, Baso # (Auto) 0.0 I & O for Last 24 hours: Intake & Output 12/16/19 12/17/19 12/18/19 12/19/19 11:59 11:59 11:59 11:59 Intake Total 3497 / 3497 Output Total 1180 / 1180 Balance 2317 / 2317 Weight 180 lb 209 lb 4 oz - *Routine Abdominal Exam Comments: Abdomen somewhat distended. Dressing clean and intact Progress Note: A&P (1) Hypertension Status: Acute Current Visit: Sung
--- NOTE | 2019-12-19 07:05 | HMH.ACPN2 ---
Internal Medicine - PN: Subj *Date: 12/19/19 *Time: 07:05 Interval history: Patient developed some mild tachycardia overnight and was given fluid bolus. He responded well and pulse rate is remained in the 80s. He is awake on the ventilator. Guardian is in the room with him. Nursing staff reports no other issues. Patient seems to respond to the guardian best. He can follow simple instructions this morning such as taking a deep breath. He will make eye contact when being spoken to. Exam Vital signs and Labs for Last 24 Hours: Temp Pulse Resp BP Pulse Ox 99.6 F 97 H 16 109/75 L 98 12/19/19 06:00 12/19/19 06:00 12/19/19 06:00 12/19/19 06:00 12/19/19 06:00 Laboratory Results - last 24 hr 12/18/19 09:10: Urine Color Stephania, Urine Appearance Clear, Urine pH 6.0, Ur Specific [place] >= 1.030, Urine Protein 2+, Urine Glucose (UA) Negative, Urine Ketones Trace, Urine Blood Negative, Urine Nitrate Negative, Urine Bilirubin Negative, Urine Urobilinogen 1.0, Ur Leukocyte Esterase Negative, Urine RBC 3-5, Urine WBC 3-5, Ur Squamous Epith Cells Occasional, Urine Bacteria 1+ 12/18/19 09:20: Specimen Source L brachial, O2 % Room air, ABG pH 7.47 H, ABG pCO2 24.1 L, ABG pO2 77.2 L, ABG HCO3 17.1 L, ABG Total CO2 17.9 L, ABG O2 Saturation 96, ABG Base Excess -6.5 L 12/18/19 10:10: WBC 14.4 H, RBC 6.24 H, Hgb 19.5 H*, Hct 53.3 H, MCV 85.5, MCH 31.2, MCHC 36.5 H, RDW 15.1, Plt Count 274, MPV 9.0, Neut % (Auto) 86.6 H, Lymph % (Auto) 5.4 L, [place] % (Auto) 7.2, Eos % (Auto) 0.7, Baso % (Auto) 0.2, Neut # (Auto) 12.5 H, Lymph # (Auto) 0.8, [place] # (Auto) 1.0, Eos # (Auto) 0.1, Baso # (Auto) 0.0, Total Counted 100, Neutrophils % (Manual) 90 H, Lymphocytes % (Manual) 3 L, Monocytes % (Manual) 7, Platelet Estimate Normal, RBC Morphology Normal 12/18/19 10:10: Sodium 139, Potassium 3.0 L, Chloride 103, Carbon Dioxide 20 L, Anion Gap 19.0 H, BUN 51 H, Creatinine 1.70 H, Estimated Creat Clear 55, Estimated GFR 42 L, Est GFR ( Amer) 50 L, Glucose 170 H, Calcium 9.4, Total Bilirubin 2.2 H, AST 51, ALT 56, Alkaline Phosphatase 98, Troponin I 0.22 H, Total Protein 7.4, Albumin 4.2, Globulin 3.2, Albumin/Globulin Ratio 1.3, Lipase 48, TSH 3.45 12/18/19 10:10: Lactate 3.9 H 12/18/19 10:10: Free T4 1.86 12/18/19 10:10: SARS-CoV-2 IgG Ab (Rapid) Negative, SARS-CoV-2 IgM Ab (Rapid) Negative 12/18/19 10:10: Chlamy pneumoniae PCR Not detected, Adenovirus (PCR) Not detected, B. pertussis DNA (PCR) Not detected, Coronavirus OC43 (PCR) Not detected, Coronavirus HKU1 (PCR) Not detected, Coronavirus 229E (PCR) Not detected, COVID-19 PCR Not detected, Coronavirus NL63 (PCR) Not detected, Human Metapneumovir PCR Not detected, Influenza A (H1) PCR Not detected, Influ A (H1N1/09) PCR Not detected, Influenza A (H3) PCR Not detected, Influenza Type A (PCR) Not detected, Influenza Type B (PCR) Not detected, M. pneumoniae (PCR) Not detected, Parainfluenza 1 (PCR) Not detected, Parainfluenza 2 (PCR) Not detected, Parainfluenza 3 (PCR) Not detected, Parainfluenza 4 (PCR) Not detected, RSV (PCR) Not detected, Entero/Rhino (PCR) Not detected 12/18/19 16:23: Troponin I 0.41 H 12/18/19 16:23: Lactate 3.9 H 12/18/19 17:10: Specimen Source Left radial, O2 % 100, ABG pH 7.37, ABG pCO2 40.8, ABG pO2 326.0 H, ABG HCO3 23.0, ABG Total CO2 24.2, ABG O2 Saturation 99, ABG Base Excess -2.4, Fbaián Test Patient unable, Vent Rate 10, Tidal Volume 500, PEEP 5 12/18/19 18:45: Lactate 2.7 H 12/18/19 21:44: Troponin I 0.40 H 12/18/19 22:05: Specimen Source Right radial, O2 % 30, ABG pH 7.47 H, ABG pCO2 31.7 L, ABG pO2 86.9, ABG HCO3 22.6, ABG Total CO2 23.5, ABG O2 Saturation 97, ABG Base Excess -1.1, Fabián Test acceptable 12/19/19 05:25: WBC 11.9 H, RBC 5.05, Hgb 14.9 D, Hct 44.3, MCV 87.6, MCH 29.6, MCHC 33.8, RDW 15.3, Plt Count 207, MPV 8.5, Neut % (Auto) 84.9 H, Lymph % (Auto) 8.9 L, [place] % (Auto) 5.5, Eos % (Auto) 0.5, Baso % (Auto) 0.2, Neut # (Auto) 10.1 H, Lymph # (Auto) 1.1, [place] # (Auto) 0.7, Eos # (Auto)
[2019-12-19 07:19] LABS: Calcium 8.2 mg/dl (8.4-10.2)
[2019-12-19 07:27] LABS: ABG Base Excess -0.7 mmol/L (-2.4-2.3); ABG HCO3 22.9 mmhg (22.0-26.0); ABG Oxygen Saturation 96 % (90-100); ABG PCO2 32.1 mmhg (35.0-45.0); ABG PH 7.47 mmol/L (7.35-7.45); ABG PO2 81.7 mmhg (80-100); ABG TCO2 23.9 mmhg (23-27)
[2019-12-19 07:30] LABS: Oxygen 30% %; PEEP 5; Source R BRACHIAL; Tidal Volume 450; Vent Rate 16
--- NOTE | 2019-12-19 09:46 | P.PN_ITS ---
[facility] Anesthesia Record Part I Intake, IV Amount: 2,000 Estimated blood loss (mL): 950 Urine output (mL): 150 Blood Pressure: 159/80 SaO2: 97 Pulse Rate: 95 Respiratory Rate: 10 Temperature: 96 F Patient is:: Intubated, Stable, Ventilator Stable to PACU at:: 16:00 Comments:: unable to obtain Vt >75cc so unable to meet extubation criteria. RT called took pt to step down, placed on ventilator 100%/simv 12/ peep 5/ vss, report to Dr Good and Step down RN
--- NOTE | 2019-12-19 09:51 | HMH.ANESII ---
[facility] Anesthesia Record Part II Discharge Time: 16:10 Destination: step down PACU nurse assessment reviewed?: Yes Patient Condition:: Fair Anesthesia Complications:: None pt unable to meet extubation criteria, is currently being weaned per Dr Mustafa Swallowing reflex intact?: No Cyanosis?: No Blood Pressure: 112/70 Pulse Rate: 72 Temperature: 97 F Mental Status: Lethargic Pain level:: 0 Nausea and/or vomitting:: None Intake, IV Amount: 2,400
--- NOTE | 2019-12-19 10:24 | HMH.ANESCL ---
[facility] Anesthesia Checklist - Patient Identification Patient Identification: Arm Band - Structural Data Admitted From: Home Planned Operative Procedure/s: exploratory laparotomy Consent for Planned Operative Procedure(s) Verified: Yes Verified Documents: Surgical Consent, History and Physical - NPO Status Verified Time NPO: 00:00 - Additional verifications Anesthesia Reactions: No Hx Blood Transfusions: No Blood Transfusion Reaction: No - Airway Assessment C-Spine Mobility Assessed: Yes (mp2) TMJ Mobility Assessed: Yes Dentition: Good Dentition - Neurological Assessment Level of Consciousness: Awake, Alert - Anesthesia Plan Anesthesia Risk discussed: Yes Anesthesia Plan: Verified ASA Class: III (e) Anesthesia Type: General [facility] History I have reviewed the patient's past medical history: Yes Medical History: Reports:: Hyperlipidemia, Hypertension Denies:: Cancer, Diabetes Mellitus Type 1, Diabetes Mellitus Type 2, Internal Pacemaker, MRSA, Seizures *Have you ever received a pneumonia vaccine?: Yes *Have you received a flu vaccine this season?: Yes Other Medical History: Reports: Hypothyroidism, Other (cognitive delay). Denies: Blood Transfusion Reaction Anesthesia experience/problems:: nac Laterality Cases: Bilateral: Tonsillectomy Other Surgeries: Yes: Cholecystectomy, Thyroidectomy. No: Pacemaker Amputation: No Fractures: No - *Social History Smoking Status: Never smoker Alcohol Intake: never Substance Use Type: denies use *Occupational Status:: disabled Housing: house Household Members: family *Travel in the last 8 weeks: None Family Hx:: Unable to obtain
--- NOTE | 2019-12-19 14:27 | PC.NURSE ---
1400 PATIENT WAS EXTUBATED BY RT SHANNEN WITH THIS RN AT BEDSIDE. PATIENT TOLERATED WELL. HE WAS ABLE TO COUGH AND SAID HI. AT THIS TIME HE HAS 3LNC ON AND HAS AN O2 SAT 97%. FAMILY WAS PROVIDED SWAB STICKS FOR HIS MOUTH AND INSTRUCTED ON HOW TO USE THEM. PATIENT MOUTH WAS SUCTIONED AND ORAL CARE WAS PROVIDED POST EXTUBATION. PATIENT IS WITHIN VIEW OF THIS NURSE AND WILL CONTINUE TO BE MONITOR.
[2019-12-20] VITALS (13 sets, daily range): BP systolic 130–149; BP diastolic 77–93; PULSE 70–111; RESP 16–20; TEMP 36.5–38.2; O2SAT 93–98; BMI 31.6
--- NOTE | 2019-12-20 01:45 | PC.NURSE ---
patient has been pleasant and calm, follows commands appropriately. able to answer simple questions, turn call light on and voice simple requests. patient has remained on 2 lnc with sats 92-97%. will continue to monitor.
--- NOTE | 2019-12-20 04:55 | PC.NURSE ---
shift summary, patient has remained on 2 l nc with sats maintaining low to high 90s. room air sat performed while bathing, patients sats remained 94-95%. patient requested to having it back on while sleeping. patient has been able to assist with care, assisting in turning q 2 hrs and during bath. ngt has remained intact with small amount of brown green drainage. abdominal dressing clean dry and intact. quality assurance monitor chassis has shown sinus with rate from 70s to 110, no ectopy noted.
--- NOTE | 2019-12-20 07:13 | HMH.GSPN ---
Subjective Narrative: Patient successfully extubated yesterday afternoon and has been doing well without any issues. Minimal nasogastric tube output. Patient had moderate pasty bowel movement this morning. Exam Vital signs and Labs for Last 24 Hours: Temp Pulse Resp BP Pulse Ox 99.4 F 109 H 18 148/89 H 93 L 12/20/19 04:00 12/20/19 06:00 12/20/19 06:00 12/20/19 06:00 12/20/19 06:00 Laboratory Results - last 24 hr 12/19/19 05:25: Calcium 8.2 L D 12/19/19 06:58: Specimen Source R brachial, O2 % 30%, ABG pH 7.47 H, ABG pCO2 32.1 L, ABG pO2 81.7, ABG HCO3 22.9, ABG Total CO2 23.9, ABG O2 Saturation 96, ABG Base Excess -0.7, Vent Rate 16, Tidal Volume 450, PEEP 5 I & O for Last 24 hours: Intake & Output 12/17/19 12/18/19 12/19/19 12/20/19 11:59 11:59 11:59 11:59 Intake Total 8534 / 8690 2383 / 2383 Output Total 1391 / 1431 1301 / 1301 Balance 7143 / 7259 1082 / 1082 Weight 180 lb 209 lb 4 oz 190 lb 1 oz - *Routine Abdominal Exam Present: soft Progress Note: A&P (1) Cecal volvulus Status: Acute Current Visit: Yes (2) Hypertension Status: Acute Current Visit: Yes (3) Hypothyroidism Status: Acute Current Visit: Yes Assessment and Plan for All Diagnoses:: Plan to place nasogastric tube to drain for now. Hopefully be able to discontinue this soon. Continue antibiotics.
--- NOTE | 2019-12-20 07:41 | HMH.ACPN2 ---
Internal Medicine - PN: Subj *Date: 12/20/19 *Time: 07:41 Interval history: Patient has done well since extubation yesterday afternoon. Patient even had a small pasty bowel movement this morning. Vital signs have been stable per nursing. No complications overnight. NG will be to gravity later this morning Exam Vital signs and Labs for Last 24 Hours: Temp Pulse Resp BP Pulse Ox 99.4 F 109 H 18 148/89 H 93 L 12/20/19 04:00 12/20/19 06:00 12/20/19 06:00 12/20/19 06:00 12/20/19 06:00 I & O for Last 24 hours: Intake & Output 12/17/19 12/18/19 12/19/19 12/20/19 11:59 11:59 11:59 11:59 Intake Total 8534 / 8690 2383 / 2383 Output Total 1391 / 1431 1301 / 1301 Balance 7143 / 7259 1082 / 1082 Weight 180 lb 209 lb 4 oz 190 lb 1 oz Narrative: Patient looks comfortable. Lungs are clear. Heart has a regular rate and rhythm. Abdomen is soft with absent bowel sounds Assessment and Plan (1) Cecal volvulus Current visit: Yes Status: Acute Category: Medical Code(s): K56.2 - Volvulus (2) Hypertension Current visit: Yes Status: Acute Category: Medical Code(s): I10 - Essential (primary) hypertension (3) Hypothyroidism Current visit: Yes Status: Acute Category: Medical Code(s): E03.9 - Hypothyroidism, unspecified - Assessment and plan all Dx Assessment and Plan for all problems:: Patient will be transferred from stepdown unit to regular bed. Postoperative management per Dr. Good
[2019-12-20 08:13] LABS: Lactic Acid 1.3 mmol/L (0.7-2.1)
--- NOTE | 2019-12-20 09:27 | PC.NURSE ---
changed to drainage bag at this time
--- NOTE | 2019-12-20 09:31 | PC.NURSE ---
Per Medical history pt has MR. he is alert to person, is very cooperative with care. acknowledges the need for NG tube and agrees with staff not to pull on it. when asked pt will say yes or no to if he hurts. informed SRNA that something was wrong with his belly pt is aware of his surgery. pt cooperative and uses call light when assistance needed
--- NOTE | 2019-12-20 15:38 | PC.NURSE ---
pt has rested/slept most of the shift. rectal temp this am was 100.7, repeat at 1535 was 99.8. will medicate as needed. lung sounds are diminished throughout. bowel sounds are hypo in brandyn lower quad and active in brandyn upper quad. ng tube is draining via gravity. when residual was checked it was noted to be less than 10ml. pt sleeps/rests with eyes open. pt is minimally verbal but is able to make his needs know. nad noted. will monitor pt condition
--- NOTE | 2019-12-20 19:17 | PC.NURSE ---
report given to liz
--- NOTE | 2019-12-20 20:13 | PC.NURSE ---
during reassessment at 1600 it was noted that pt has reddened are on coccyx. in center of reddened area is a cluster of wart/blister like skin issue. photo obtained and consent given by alissa
--- NOTE | 2019-12-20 22:19 | PC.NURSE ---
2100- 15ML OF AIR FLUSHED IN NG; AUSCULTATED FOR PLACEMENT. 5ML OF DARK BROWN RESIDUAL NOTED. CONTINUES TO DRAIN PER GRAVITY.
[2019-12-20 23:25] LABS: Adenovirus F 40/41, stool Not Detected (NotDetected); Astrovirus Not Detected (NotDetected); Campylobacter Not Detected (NotDetected); Clostridium Difficile A/B, PCR Not Detected (NotDetected); Cryptosporidium Not Detected (NotDetected); Cyclospora Cayetanesis Not Detected (NotDetected); Entamoeba histolytica Not Detected (NotDetected); Enteroaggregative E coli Not Detected (NotDetected); Enteropathogenic E coli Not Detected (NotDetected); Enterotoxigenic E coli Not Detected (NotDetected); Giardia lamblia Not Detected (NotDetected); Norovirus Not Detected (NotDetected); Plesimonas Shigalloides, PCR Not Detected (NotDetected); Rotavirus A Not Detected (NotDetected); Salmonella, PCR Not Detected (NotDetected); Sapovirus Not Detected (NotDetected); Shiga-like toxin E coli Not Detected (NotDetected); Shigella Enterovasive E coli Not Detected (NotDetected); Vibrio Cholerae Not Detected (NotDetected); Vibrio, PCR Not Detected (NotDetected); Yersinia Entercolitica, PCR Not Detected (NotDetected)
--- NOTE | 2019-12-20 23:26 | PC.NURSE ---
pt. has d/c ng tube at this time. attempts are being made to reinsert ng.
[2019-12-21] VITALS: BP 164/85; PULSE 79; RESP 18; TEMP 38.2; O2SAT 90
--- NOTE | 2019-12-21 00:01 | PC.NURSE ---
2347- NG PLACED IN R NARE AT 60 DRAINING PER GRAVITY. AUSCULTATED FOR PLACEMENT; AWAITING CXR.
--- NOTE | 2019-12-21 00:11 | XR_ITS ---
PROCEDURE: XR CHEST PORTABLE CLINICAL HISTORY: REINSERTION OF NG TUBE Nasogastric tube evaluation COMPARISON: No exams were available for comparison FINDINGS: NG tube is present with the tip in good position in the region of the body of the stomach. There is increasing left basilar consolidation/volume loss with patchy infiltrate also noted in the right lower lobe. Surgical clips are present in the paratracheal region. IMPRESSION: Good position of NG tube. Increasing bilateral lower lobe airspace disease Dictated by: Fabián Arnold MD 12/21/2019 07:38 Electronically signed by Fabián Arnold MD in [place] 12/21/2019 07:38
[2019-12-21 04:00] VITALS: BP 128/76; PULSE 88; RESP 20; TEMP 37.5; O2SAT 90
--- NOTE | 2019-12-21 04:55 | PC.NURSE ---
OBTAINED REPORT FROM Edwar AMEZQUITA AT 0000, SINCE RECEIVING REPORT PT HAS RESTED WELL. WEANED TO RA, TOLERATED WELL. UNCHANGED DRIED DRAINAGE ON MIDLINE ABDOMINAL DRESSING. MULTIPLE EPISODES OF BROWN DIARRHEA WERE REPORTED PER Edwar AMEZQUITA RN, STOOL SAMPLE WAS OBTAINED AND SENT TO LAB PER Edwar AMEZQUITA, CONTACT/ ENTERIC ISOLATION IN PLACE WHILE SAMPLE WAS PENDING PER LAB. NOTHING DETECTED ON RESULTS OF STOOL SAMPLE. REMOVED FROM CONTACT/ENTERIC ISOLATION. NG HAS MAINTAINED AT 60CM IN THE RIGHT NARE, SITE IS FREE FROM REDNESS/DRAINAGE. NG HOOKED TO GRAVITY, BROWN GASTRIC CONTENTS NOTED IN BAG. FOLLOWING NG INSERTION AROUND 0000 CONTENTS ASPIRATED WERE YELLOW/CLEAR AND BLOOD TINGED IN COLOR. ON 0400 RESIDUAL, 0ML. GODWIN CATHETER IN PLACE, PATENT AND DRAINING CLEAR YELLOW URINE. GODWIN CATHETER SITE NOTED CDI, NO S/S OF INFECTION. TURNED AND REPOSITIONED Q2H. ORAL CARE PROVIDED Q2H. POLYMEN NOTED TO COCCYX AREA, CDI.
[2019-12-21 05:37] VITALS: BMI 32.3
--- NOTE | 2019-12-21 06:39 | P.PN_ITS ---
Subjective Patient reports: bowel movement Narrative: no issues overnight per nsg Exam Vital signs and Labs for Last 24 Hours: Temp Pulse Resp BP Pulse Ox 99.5 F 88 20 128/76 90 L 12/21/19 04:00 12/21/19 04:00 12/21/19 04:00 12/21/19 04:00 12/21/19 04:00 Laboratory Results - last 24 hr 12/20/19 07:49: Lactate 1.3 12/20/19 23:20: Stl Aeromonas (PCR) Not detected, Stl C. cayetanensis PCR Not detected, Stool Rotavirus (PCR) Not detected, Stl Adenov F 40/41 PCR Not detected, Stool Astrovirus (PCR) Not detected, Stool Campylobacter PCR Not detected, Stl C.difficile Tox PCR Not detected, Stool Cryptosporidium PCR Not detected, Stl E.coli Shiga Tox PCR Not detected, Stool E coli O157 PCR Not detected, Stl Enterotoxigenic E PCR Not detected, Stool EPEC (PCR) Not detected, Stool EAEC (PCR) Not detected, Stl E. histolytica PCR Not detected, Stool Giardia Lamblia PCR Not detected, Stool Salmonella PCR Not detected, Stool Sapovirus (PCR) Not detected, Stl P. shigelloides PCR Not detected, Stl Shigel la/EIEC PCR Not detected, St Y.enterocolitica PCR Not detected, Stool Vibrio (PCR) Not detected, Stl Vibrio cholerae PCR Not detected, Stl Norovirus GI/GII PCR Not detected I & O for Last 24 hours: Intake & Output 12/18/19 12/19/19 12/20/19 12/21/19 11:59 11:59 11:59 11:59 Intake Total 8534 / 8690 2383 / 2383 0 / 0 Output Total 1391 / 1431 1301 / 1301 600 / 600 Balance 7143 / 7259 1082 / 1082 -600 / -600 Weight 180 lb 209 lb 4 oz 190 lb 1 oz 194 lb 4 oz Microbiology Reports for the Last 24 Hours: Microbiology 12/20/19 23:48 Sputum - Expectorated Sputum Gram Stain - Final 12/18/19 10:10 Blood Blood Culture - Preliminary NO GROWTH AFTER 48 HOURS 12/18/19 10:10 Blood Blood Culture - Preliminary NO GROWTH AFTER 48 HOURS - Constitutional no acute distress - *Routine Respiratory Exam Absent: respiratory distress - *Routine Cardiovascular Exam Present: RRR - *Routine Abdominal Exam Present: soft Comments: Incision clean, dry, and intact. No erythema. 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 Bowel function normalizing. DC NG Clear liquids without carbonation Continue serial abdominal exams Current Visit: Yes (2) Hypertension Status: Acute Current Visit: Yes (3) Hypothyroidism Status: Acute Current Visit: Yes
--- NOTE | 2019-12-21 07:18 | HMH.ACPN2 ---
Internal Medicine - PN: Subj *Date: 12/21/19 *Time: 07:18 Interval history: Patient has no complaints. He is indicated to staff he is hopeful to have the NG removed and begin a diet. Dr. Turcios of the surgical service saw the patient this morning and placed those orders. Patient denies pain. Patient has been having watery bowel movements Exam Vital signs and Labs for Last 24 Hours: Temp Pulse Resp BP Pulse Ox 99.5 F 88 20 128/76 90 L 12/21/19 04:00 12/21/19 04:00 12/21/19 04:00 12/21/19 04:00 12/21/19 04:00 Laboratory Results - last 24 hr 12/20/19 07:49: Lactate 1.3 12/20/19 23:20: Stl Aeromonas (PCR) Not detected, Stl C. cayetanensis PCR Not detected, Stool Rotavirus (PCR) Not detected, Stl Adenov F 40/41 PCR Not detected, Stool Astrovirus (PCR) Not detected, Stool Campylobacter PCR Not detected, Stl C.difficile Tox PCR Not detected, Stool Cryptosporidium PCR Not detected, Stl E.coli Shiga Tox PCR Not detected, Stool E coli O157 PCR Not detected, Stl Enterotoxigenic E PCR Not detected, Stool EPEC (PCR) Not detected, Stool EAEC (PCR) Not detected, Stl E. histolytica PCR Not detected, Stool Giardia Lamblia PCR Not detected, Stool Salmonella PCR Not detected, Stool Sapovirus (PCR) Not detected, Stl P. shigelloides PCR Not detected, Stl Shigella/EIEC PCR Not detected, St Y.enterocolitica PCR Not detected, Stool Vibrio (PCR) Not detected, Stl Vibrio cholerae PCR Not detected, Stl Norovirus GI/GII PCR Not detected I & O for Last 24 hours: Intake & Output 12/18/19 12/19/19 12/20/19 12/21/19 11:59 11:59 11:59 11:59 Intake Total 8534 / 8690 2383 / 2383 2907 / 2907 Output Total 1391 / 1431 1301 / 1301 730 / 730 Balance 7143 / 7259 1082 / 1082 2177 / 2177 Weight 180 lb 209 lb 4 oz 190 lb 1 oz 194 lb 4 oz Microbiology Reports for the Last 24 Hours: Microbiology 12/20/19 23:48 Sputum - Expectorated Sputum Gram Stain - Final 12/18/19 10:10 Blood Blood Culture - Preliminary NO GROWTH AFTER 48 HOURS 12/18/19 10:10 Blood Blood Culture - Preliminary NO GROWTH AFTER 48 HOURS Narrative: Patient is resting comfortably in bed. Oropharynx is dry. Lungs are clear. Heart has a regular rate and rhythm. Abdomen is soft. Bowel sounds are hypoactive. Laparotomy incision is clean, dry, intact Assessment and Plan (1) Cecal volvulus Current visit: Yes Status: Acute Category: Medical Code(s): K56.2 - Volvulus (2) Hypertension Current visit: Yes Status: Acute Category: Medical Code(s): I10 - Essential (primary) hypertension (3) Hypothyroidism Current visit: Yes Status: Acute Category: Medical Code(s): E03.9 - Hypothyroidism, unspecified - Assessment and plan all Dx Assessment and Plan for all problems:: 1. Restart patient's metoprolol and Synthroid 2. Remove NG, advance diet, DC Payne catheter
--- NOTE | 2019-12-21 07:18 | SW/DCPLANNER ---
PATIENT ADMITTED TO [facility] WITH A CECAL VOLVULUS.... HE IS FROM HOME AND WILL DISCHARGE BACK THERE POST DISCHARGE... PATIENT HAS 2 GUARDIANS THAT HELP TO TAKE CARE OF HIM... DISPOSITION UNCERTAIN BUT SHOULD BE IN THE NEXT FEW DAYS...
--- NOTE | 2019-12-21 07:42 | HMH.ACPN ---
Internal Medicine - PN: Subj *Date: 12/21/19 *Time: 07:42 Exam Vital signs and Labs for Last 24 Hours: Temp Pulse Resp BP Pulse Ox 99.5 F 88 20 128/76 90 L 12/21/19 04:00 12/21/19 04:00 12/21/19 04:00 12/21/19 04:00 12/21/19 04:00 Laboratory Results - last 24 hr 12/20/19 07:49: Lactate 1.3 12/20/19 23:20: Stl Aeromonas (PCR) Not detected, Stl C. cayetanensis PCR Not detected, Stool Rotavirus (PCR) Not detected, Stl Adenov F 40/41 PCR Not detected, Stool Astrovirus (PCR) Not detected, Stool Campylobacter PCR Not detected, Stl C.difficile Tox PCR Not detected, Stool Cryptosporidium PCR Not detected, Stl E.coli Shiga Tox PCR Not detected, Stool E coli O157 PCR Not detected, Stl Enterotoxigenic E PCR Not detected, Stool EPEC (PCR) Not detected, Stool EAEC (PCR) Not detected, Stl E. histolytica PCR Not detected, Stool Giardia Lamblia PCR Not detected, Stool Salmonella PCR Not detected, Stool Sapovirus (PCR) Not detected, Stl P. shigelloides PCR Not detected, Stl Shigella/EIEC PCR Not detected, St Y.enterocolitica PCR Not detected, Stool Vibrio (PCR) Not detected, Stl Vibrio cholerae PCR Not detected, Stl Norovirus GI/GII PCR Not detected I & O for Last 24 hours: Intake & Output 12/18/19 12/19/19 12/20/19 12/21/19 23:59 23:59 23:59 23:59 Intake Total 1434 / 1434 7783 / 7783 1700 / 1700 2907 / 2907 Output Total 300 / 300 179 / 1990 851 / 851 480 / 480 Balance 1134 / 1134 5992 / 5792 849 / 849 2427 / 2427 Weight 94.914 kg 86.211 kg 88.11 kg Microbiology Reports for the Last 24 Hours: Microbiology 12/20/19 23:48 Sputum - Expectorated Sputum Gram Stain - Final 12/18/19 10:10 Blood Blood Culture - Preliminary NO GROWTH AFTER 48 HOURS 12/18/19 10:10 Blood Blood Culture - Preliminary NO GROWTH AFTER 48 HOURS Assessment and Plan (1) Cecal volvulus Current visit: Yes Status: Acute Category: Medical Code(s): K56.2 - Volvulus (2) Hypertension Current visit: Yes Status: Acute Category: Medical Code(s): I10 - Essential (primary) hypertension (3) Hypothyroidism Current visit: Yes Status: Acute Category: Medical Code(s): E03.9 - Hypothyroidism, unspecified The patient's infection will respond to the chosen ABx?: Yes Is the patient receiving the right drug, dose, and route?: Yes Could a more targeted ABx be ordered?: No
[2019-12-21 07:43] LABS: Chloride 109 mmol/L (98-107); Sodium 146 mmol/L (136-145)
[2019-12-21 07:44] LABS: Potassium 3.1 mmoL/L (3.5-5.1)
[2019-12-21 07:46] LABS: Blood Urea Nitrogen 27 mg/dl (9-20); Creatinine Clearance Estimated 91 mL/min (50-200); Estimated Glomerular Filt Rate 69 ml/min (>60); GFR (African American) 83 ML/MIN (>60); Mean Corpuscular HGB Conc 37.1 g/dL (31.8-35.4); Mean Corpuscular Hemoglobin 33.6 pg (27.0-31.2); Mean Corpuscular Volume 90.6 fl (80-94); Mean Platelet Volume 8.2 fl (7.4-10.4); Neutrophils % 85.1 % (37.0-80.0); Platelet Count 203 K/mm3 (142-424); Red Blood Count 3.86 M/mm3 (4.60-6.20); White Blood Count 10.7 K/mm3 (4.8-10.8)
[2019-12-21 07:47] LABS: Anion Gap 7.1 mEq/L (5-15); Basophils % 0.4 % (0.1-2.0); Calcium 8.7 mg/dl (8.4-10.2); Carbon Dioxide 33 mmol/L (22.0-30.0); Eosinophils % 0.4 % (0.1-12.0); Glucose 92 mg/dl (74-100); Lymphocytes % 8.6 % (10-50); Monocytes % 5.5 % (1.7-9.3)
[2019-12-21 07:48] LABS: Basophils # 0.1 K/mm3 (0-0.2); Lymphocytes # 0.9 K/mm3 (0.7-4.5); Monocytes # 0.6 K/mm3 (0.1-1.0); Neutrophils # 9.1 K/mm3 (1.8-7.8)
[2019-12-21 07:50] LABS: MANUAL DIFFERENTIAL MANUAL DIFFERENTIAL (MANUAL DIFF)
[2019-12-21 07:55] VITALS: BP 127/71; PULSE 104; RESP 20; TEMP 36.9; O2SAT 93
[2019-12-21 08:40] LABS: Lymphocytes % 10 % (10-50); Monocytes % 3 % (2-9); Neutrophils % 87 % (42-76); Platelet Estimate Normal; RBC Morphology Normal; Total Cells Counted 100
[2019-12-21 15:01] VITALS: BP 122/68; PULSE 68; RESP 20; TEMP 37.4; O2SAT 90
--- NOTE | 2019-12-21 18:49 | PC.NURSE ---
pt has done very well today. has ambulated from bed and chair to bsc multiple times today. pt states he is not in pain just sore on some movements. has tolerated his diet well today. no c/o n/v. has remained afebrile. vss. will cont. to monitor
[2019-12-21 19:26] VITALS: BP 115/70; PULSE 70; RESP 20; TEMP 37.2; O2SAT 90
[2019-12-21 20:00] VITALS: O2SAT 90
--- NOTE | 2019-12-22 02:15 | PC.NURSE ---
He has been resting in bed. He is alert to person, place, and time. Speech is mumbled but appropriate. Flat affect. Reported pain but was unable to rate it. 34 rosenda KIARA with no drainage or odor. Being turned and repositioned q 2 hours and PRN. Is wearing a brief but uses call light when needing to void. Urine is tomas colored. Enlarged scrotum. Continues on RA.
[2019-12-22 04:08] VITALS: BP 154/82; PULSE 56; TEMP 37.1; O2SAT 90
[2019-12-22 04:13] VITALS: BMI 33.3
[2019-12-22 06:24] LABS: Basophils % 0.1 % (0.1-2.0); Eosinophils # 0.1 K/mm3 (0.0-0.4); Eosinophils % 1.1 % (0.1-12.0); Hematocrit 36.7 % (42.0-52.0); Hemoglobin 12.5 g/dL (14.1-18.0); Lymphocytes % 11.4 % (10-50); Mean Corpuscular HGB Conc 34.2 g/dL (31.8-35.4); Mean Corpuscular Hemoglobin 30.2 pg (27.0-31.2); Mean Corpuscular Volume 88.3 fl (80-94); Mean Platelet Volume 8.5 fl (7.4-10.4); Monocytes # 0.6 K/mm3 (0.1-1.0); Monocytes % 6.5 % (1.7-9.3); Neutrophils % 80.8 % (37.0-80.0); Platelet Count 222 K/mm3 (142-424); Red Blood Count 4.16 M/mm3 (4.60-6.20); Red Cell Distribution Width 15.4 % (11.5-17.5); White Blood Count 8.7 K/mm3 (4.8-10.8)
[2019-12-22 06:37] LABS: Chloride 106 mmol/L (98-107); Potassium 3.4 mmoL/L (3.5-5.1); Sodium 142 mmol/L (136-145)
[2019-12-22 06:40] LABS: Blood Urea Nitrogen 25 mg/dl (9-20); Creatinine Clearance Estimated 94 mL/min (50-200); Estimated Glomerular Filt Rate 69 ml/min (>60); GFR (African American) 83 ML/MIN (>60)
[2019-12-22 06:41] LABS: Anion Gap 7.4 mEq/L (5-15); Calcium 8.1 mg/dl (8.4-10.2); Carbon Dioxide 32 mmol/L (22.0-30.0); Glucose 105 mg/dl (74-100)
--- NOTE | 2019-12-22 07:27 | P.PN_ITS ---
Internal Medicine - PN: Subj *Date: 12/22/19 *Time: 07:27 Interval history: Patient has no complaints this morning. He states he is feeling better. He does have some abdominal pain. He admits to flatus. Exam Vital signs and Labs for Last 24 Hours: Temp Pulse Resp BP Pulse Ox 98.8 F 56 L 20 154/82 H 90 L 12/22/19 04:08 12/22/19 04:08 12/21/19 19:26 12/22/19 04:08 12/22/19 04:08 Laboratory Results - last 24 hr 12/21/19 05:34: WBC 10.7, RBC 3.86 L, Hgb 13.0 L, Hct 35.0 L, MCV 90.6, MCH 33.6 H, MCHC 37.1 H, RDW 15.0, Plt Count 203, MPV 8.2, Neut % (Auto) 85.1 H, Lymph % (Auto) 8.6 L, [place] % (Auto) 5.5, Eos % (Auto) 0.4, Baso % (Auto) 0.4, Neut # (Auto) 9.1 H, Lymph # (Auto) 0.9, [place] # (Auto) 0.6, Eos # (Auto) 0.0, Baso # (Auto) 0.1, Total Counted 100, Neutrophils % (Manual) 87 H, Lymphocytes % (Manual) 10, Monocytes % (Manual) 3, Platelet Estimate Normal, RBC Morphology Normal 12/21/19 05:34: Sodium 146 H, Potassium 3.1 L, Chloride 109 H, Carbon Dioxide 33 H, Anion Gap 7.1, BUN 27 H D, Creatinine 1.10 D, Estimated Creat Clear 91, Estimated GFR 69, Est GFR ( Amer) 83 D, Glucose 92, Calcium 8.7 12/22/19 05:36: WBC 8.7, RBC 4.16 L, Hgb 12.5 L, Hct 36.7 L, MCV 88.3, MCH 30.2, MCHC 34.2, RDW 15.4, Plt Count 222, MPV 8.5, Neut % (Auto) 80.8 H, Lymph % (Au to) 11.4, [place] % (Auto) 6.5, Eos % (Auto) 1.1, Baso % (Auto) 0.1, Neut # (Auto) 7.0, Lymph # (Auto) 1.0, [place] # (Auto) 0.6, Eos # (Auto) 0.1, Baso # (Auto) 0.0 12/22/19 05:36: Sodium 142, Potassium 3.4 L, Chloride 106, Carbon Dioxide 32 H, Anion Gap 7.4, BUN 25 H, Creatinine 1.10, Estimated Creat Clear 94, Estimated GFR 69, Est GFR ( Amer) 83, Glucose 105 H, Calcium 8.1 L I & O for Last 24 hours: Intake & Output 12/19/19 12/20/19 12/21/19 12/22/19 11:59 11:59 11:59 11:59 Intake Total 8534 / 8690 2383 / 2383 2907 / 2907 3920 / 3920 Output Total 1391 / 1431 1301 / 1301 730 / 730 100 / 100 Balance 7143 / 7259 1082 / 1082 2177 / 2177 3820 / 3820 Weight 209 lb 4 oz 190 lb 1 oz 194 lb 4 oz 200 lb 1.6 oz Microbiology Reports for the Last 24 Hours: Microbiology 12/20/19 23:48 Sputum - Expectorated Sputum Gram Stain - Final 12/20/19 23:48 Sputum - Expectorated Sputum Sputum Culture - Preliminary Narrative: Patient is awake and alert. Lungs have fair aeration. Heart has a regular rate and rhythm. Abdomen is soft with hypoactive bowel sounds Assessment and Plan (1) Cecal volvulus Current visit: Yes Status: Acute Category: Medical Code(s): K56.2 - Volvulus (2) Hypertension Current visit: Yes Status: Acute Category: Medical Code(s): I10 - Essential (primary) hypertension (3) Hypothyroidism Current visit: Yes Status: Acute Category: Medical Code(s): E03.9 - Hypothyroidism, unspecified - Assessment and plan all Dx Assessment and Plan for all problems:: 1. Patient is medically stable. Continue to advance activity. 2. Postoperative direction per surgical service
[2019-12-22 08:00] VITALS: BP 130/88; PULSE 67; RESP 20; TEMP 37.2; O2SAT 91
--- NOTE | 2019-12-22 09:11 | P.PN_ITS ---
Subjective Narrative: No issues. NG out. Taking some clears. Exam Vital signs and Labs for Last 24 Hours: Temp Pulse Resp BP Pulse Ox 98.9 F 67 20 130/88 91 L 12/22/19 08:00 12/22/19 08:00 12/22/19 08:00 12/22/19 08:00 12/22/19 08:00 Laboratory Results - last 24 hr 12/22/19 05:36: WBC 8.7, RBC 4.16 L, Hgb 12.5 L, Hct 36.7 L, MCV 88.3, MCH 30.2, MCHC 34.2, RDW 15.4, Plt Count 222, MPV 8.5, Neut % (Auto) 80.8 H, Lymph % (Auto) 11.4, [place] % (Auto) 6.5, Eos % (Auto) 1.1, Baso % (Auto) 0.1, Neut # (Auto) 7.0, Lymph # (Auto) 1.0, [place] # (Auto) 0.6, Eos # (Auto) 0.1, Baso # (Auto) 0.0 12/22/19 05:36: Sodium 142, Potassium 3.4 L, Chloride 106, Carbon Dioxide 32 H, Anion Gap 7.4, BUN 25 H, Creatinine 1.10, Estimated Creat Clear 94, Estimated GFR 69, Est GFR ( Amer) 83, Glucose 105 H, Calcium 8.1 L I & O for Last 24 hours: Intake & Output 12/19/19 12/20/19 12/21/19 12/22/19 11:59 11:59 11:59 11:59 Intake Total 8534 / 8690 2383 / 2383 2907 / 2907 4400 / 4400 Output Total 1391 / 1431 1301 / 1301 730 / 730 100 / 100 Balance 7143 / 7259 1082 / 1082 2177 / 2177 4300 / 4300 Weight 209 lb 4 oz 190 lb 1 oz 194 lb 4 oz 200 lb 1.6 oz Microbiology Reports for the Last 24 Hours: Microbiology 12/20/19 23:48 Sputum - Expectorated Sputum Gram Stain - Final 12/20/19 23:48 Sputum - Expectorated Sputum Sputum Culture - Preliminary - *Routine Abdominal Exam Present: soft Progress Note: A&P (1) Cecal volvulus Status: Acute Current Visit: Yes (2) Hypertension Status: Acute Current Visit: Yes (3) Hypothyroidism Status: Acute Current Visit: Yes Assessment and Plan for All Diagnoses:: Advance diet. Decrease IVF. PT consult.
--- NOTE | 2019-12-22 11:57 | HMH.PTEV ---
Physical Therapy Evaluation Rehab PT IP Evaluation Start: 12/22/19 09:12 Freq: ONCE Status: Active Protocol: Document 12/22/19 11:48 PHORNE (Rec: 12/22/19 11:57 PHORNE [id number]) Subjective/History History History 59 yowm adm to [facility] with general weakness and now post- op abdominal surgery due to cecal volvulus. 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 Subjective Subjective Pt with no c/o this am. Rehab PT IP Eval Objective Appearance Patient Behavior Appropriate Patient Orientation Person,Time Difficulty following instructions none Speech Pattern Delayed Ambulation Patient Able to Ambulate Yes Ambulation Observation IP General Gait Pattern Observation Wide Based Gait Ambulation Distance (feet) 3 Ambulation Assistive Device None Ambulation Ability Minimal x 1 (25% assist) Balance Ability to Arise Able, uses arms to help Sitting Balance Steady, safe Standing Balance Steady, wide stance Dynamic Sitting Balance Ability Good Dynamic Standing Balance Ability Fair Transfers Bed Transfer Ability Minimal x 1 (25% assist) Chair Transfer Ability Minimal x 1 (25% assist) Sit to Stand Bed Transfer Ability Minimal x 1 (25% assist) Sit to Stand Chair Transfer Ability Minimal x 1 (25% assist) ROM All Extremities PT ROM Status WFL MMT All Extremities PT MMT WFL Rehab PT IP prob,goals,plan Problems Date of Evaluation: 12/22/19 PT IP Problems Bed Mobility,Transfers,Gait Rehab Potential Rehab Potential Good Plan PT Intervention Plan Bed Mobility,Transfers,Gait, Therapeutic Exercise PT Plan Frequency BID Duration LOS Discharge Goals Bed Transfer Ability Contact Guard/Hand Hold Sit to Stand Chair Transfer Ability Contact Guard/Hand Hold Ambulation Distance (feet) 10 Discharge Plan PT Discharge Plan Pt is appropriate to return home with caregiver once medically stable, Home Health therapy may be beneficial. G -code Required No Eval Complexity Eval Charge Codes 54137 - High Complexity PHYSICIAN CERTIFICATION: I certify the specified therapy services for Mervin Aguirre are required, authorized, and reviewed every 30 days.
[2019-12-22 16:00] VITALS: BP 155/98; PULSE 54; RESP 20; TEMP 37.1; O2SAT 92
--- NOTE | 2019-12-22 19:12 | PC.NURSE ---
report given to magdy
[2019-12-22 20:00] VITALS: BP 134/81; PULSE 53; RESP 18; TEMP 36.9; O2SAT 95
--- NOTE | 2019-12-22 21:45 | PC.NURSE ---
Pt's room air sat at rest = 89%.
--- NOTE | 2019-12-23 02:37 | PC.NURSE ---
Pt has rested comfortably t/o the night. Inspiratory and expiratory rhonchi heard bilaterally throughout. Active bowel sounds heard through L and R LQ and hypoactive bowel sounds heard in L and R UQ. Abdominal incision is clean, dry with no irritation, drainage or redness noted. Pt mumbles at baseline, but is able to voice concerns if there are any. Pt has a flat affect which is pt baseline. Pt can state name, birthday and situation but is not oriented to time. IS was encouraged hourly during hours pt was awake, pt tolerated well. Call light is within reach, along with all other safety measures. No complaints at this time, will continue to monitor for changes.
[2019-12-23 05:00] VITALS: BMI 33.3
--- NOTE | 2019-12-23 07:56 | HMH.ACPN2 ---
Internal Medicine - PN: Subj *Date: 12/23/19 *Time: 07:56 Interval history: No complaints this morning. Denies pain. Has had 2 small bowel movements. Maintaining O2 sats without supplemental oxygen. Exam Vital signs and Labs for Last 24 Hours: Temp Pulse Resp BP Pulse Ox 98.4 F 53 L 18 134/81 95 12/22/19 20:00 12/22/19 20:00 12/22/19 20:00 12/22/19 20:00 12/22/19 20:00 I & O for Last 24 hours: Intake & Output 12/20/19 12/21/19 12/22/19 12/23/19 11:59 11:59 11:59 11:59 Intake Total 2383 / 2383 2907 / 2907 4400 / 4400 1890 / 1890 Output Total 1301 / 1301 730 / 730 100 / 100 Balance 1082 / 1082 2177 / 2177 4300 / 4300 1890 / 1890 Weight 190 lb 1 oz 194 lb 4 oz 200 lb 1.6 oz 200 lb 2 oz Microbiology Reports for the Last 24 Hours: Microbiology 12/20/19 23:48 Sputum - Expectorated Sputum Gram Stain - Final 12/20/19 23:48 Sputum - Expectorated Sputum Sputum Culture - Final Normal Respiratory Danae Narrative: Sitting up in bed attempting to eat breakfast. Heart has a regular rate and rhythm. Lungs are clear anteriorly and diminished posteriorly. Abdomen is soft. Surgical incision is clean, dry, intact Assessment and Plan (1) Cecal volvulus Current visit: Yes Status: Acute Category: Medical Code(s): K56.2 - Volvulus (2) Hypertension Current visit: Yes Status: Acute Category: Medical Code(s): I10 - Essential (primary) hypertension (3) Hypothyroidism Current visit: Yes Status: Acute Category: Medical Code(s): E03.9 - Hypothyroidism, unspecified - Assessment and plan all Dx Assessment and Plan for all problems:: 1. Encourage ambulation today 2. If patient does well with advancement of diet could possibly discharge tomorrow
[2019-12-23 08:00] VITALS: BP 153/72; PULSE 57; RESP 19; TEMP 36.8; O2SAT 97; O2SAT 99
--- NOTE | 2019-12-23 09:27 | HMH.GSPN ---
Subjective Narrative: Patient is done well overnight. Still having some bowel movements. Tolerating full liquid diet. Physical therapy evaluated yesterday. Exam Vital signs and Labs for Last 24 Hours: Temp Pulse Resp BP Pulse Ox 98.3 F 57 L 19 153/72 H 99 12/23/19 08:00 12/23/19 08:00 12/23/19 08:00 12/23/19 08:00 12/23/19 08:00 I & O for Last 24 hours: Intake & Output 12/20/19 12/21/19 12/22/19 12/23/19 11:59 11:59 11:59 11:59 Intake Total 2383 / 2383 2907 / 2907 4400 / 4400 1890 / 1890 Output Total 1301 / 1301 730 / 730 100 / 100 Balance 1082 / 1082 2177 / 2177 4300 / 4300 1890 / 1890 Weight 190 lb 1 oz 194 lb 4 oz 200 lb 1.6 oz 200 lb 2 oz Microbiology Reports for the Last 24 Hours: Microbiology 12/20/19 23:48 Sputum - Expectorated Sputum Gram Stain - Final 12/20/19 23:48 Sputum - Expectorated Sputum Sputum Culture - Final Normal Respiratory Danae - *Routine Abdominal Exam Present: soft Progress Note: A&P (1) Cecal volvulus Status: Acute Current Visit: Yes (2) Hypertension Status: Acute Current Visit: Yes (3) Hypothyroidism Status: Acute Current Visit: Yes Assessment and Plan for All Diagnoses:: Saline lock IV. Continue IV antibiotics until tomorrow. Possible discharge tomorrow.
[2019-12-23 16:00] VITALS: BP 164/88; BP 164/99; PULSE 56; PULSE 59; RESP 18; TEMP 36.8; O2SAT 94; O2SAT 98
[2019-12-23 23:59] VITALS: BP 153/95; PULSE 63; RESP 16; TEMP 36.3; O2SAT 98
--- NOTE | 2019-12-24 03:33 | PC.NURSE ---
Pt has been up to BSC many times t/o the night. Pt has had small, loose stools x4. Active bowel sounds in L and R upper quadrants and hypoactive bowel sounds in L and R lower quadrants. Abd incision has no signs of infection, free of redness and drainage and is KIARA. Pt has received a complete bed bath this shift. Michelle care with barrier cream each time pt has gotten up to the BSC. Inspiratory and expiratory rhochi heard t/o bilaterally. Pt's o2 sat stays in the upper 90's and is now on RA. FREDO hose were put on pt this shift. IS used during all awake hours t/o this shift. Call light is within reach, safety measures in place. No complaints at this time, will continue to monitor for any changes.
[2019-12-24 04:37] VITALS: BP 150/91; PULSE 60; RESP 16; TEMP 36.4; O2SAT 98
[2019-12-24 05:11] VITALS: BMI 32.3
[2019-12-24 07:44] VITALS: PULSE 60; RESP 16; O2SAT 99
[2019-12-24 07:55] VITALS: BP 146/74; PULSE 60; RESP 16; TEMP 36.4; O2SAT 99
--- NOTE | 2019-12-24 08:13 | HMH.DCSUM ---
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 He is a poor historian. He reportedly complained of somewhat of an upset stomach a couple of days ago. However, his symptoms of diminished appetite with nausea had increased and his guardian felt that he needed medical care. He was brought to the emergency department where he was seen and evaluated. He was found to have findings of dehydration and acidosis. He underwent CT scan which revealed findings with cecal volvulus and some ascites. Patient was taken to the OR emergency for right hemicolectomy. Past medical history: Patient is mentally challenged although the exact nature of his cognitive disability is unknown according to his guardian Hospital Course Hospital Course: Upon evaluation in the ER and diagnosis of right cecal volvulus patient was taken to the operating room emergently by Dr. Good. 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 Right hemicolectomy was performed. Surgery went without complications. Postoperatively patient was difficult to extubate and decision was made to admit him to ICU level of care. Patient did well overnight and by the following afternoon was able to be extubated. Postoperative course from there was uncomplicated. Patient required NG tube for nearly 72 hours. Once return of bowel function was established NG tube was removed and diet was slowly advanced. PT evaluated the patient and he was able to ambulate in room with walker. Patient was maintained on IV antibiotics during the entirety of his hospitalization. Once bowel function had returned and patient was ambulating, and tolerating diet without problems patient was discharged home. Home health will be consulted for monitoring of patient's wound, nursing care and PT/OT Objective Vital signs: Temp Pulse Resp BP Pulse Ox 97.6 F 60 16 146/74 H 99 12/24/19 07:55 12/24/19 07:55 12/24/19 07:55 12/24/19 07:55 12/24/19 07:55 no acute distress - *Routine Respiratory Exam Present: CTA bilaterally - *Routine Cardiovascular Exam Present: RRR - *Routine Abdominal Exam Comments: Laparotomy incision is stapled and shows no signs of infection. Abdomen is soft. Bowel sounds are present DS: Diagnosis - Discharge Diagnosis (1) Cecal volvulus Status: Acute (2) Hypertension Status: Acute (3) Hypothyroidism Status: Acute Discharge Plan - Patient Discharge Instructions ACTIVITY: Continue current activity DIET: continue same diet Patient Instructions: How to Care for a Surgical Wound, DI for Mechanical Bowel Obstruction, DI for Surgical Site Infection - Follow up Plan Follow up with: Italo Good MD [Staff Physician] - Disposition: Home, Self-Usp Medications: Home Medications Medication Instructions Recorded Confirmed Type Levothyroxine Sodium 125 mcg PO DAILY 04/29/18 12/18/19 History [Levothyroxine 125mcg (0.125mg) Tab] Aspirin [Aspir 81] 81 mg PO DAILY 12/18/19 12/18/19 History Fexofenadine HCl 180 mg PO DAILY 12/19/19 12/19/19 History Metoprolol Succinate [Toprol XL 100 mg PO DAILY 12/19/19 12/19/19 History 100mg tablet] Montelukast Sodium [Singulair 10mg 10 mg PO PM 12/19/19 12/19/19 History tablet] Prescriptions/Medication Reconciliation: Continued Levothyroxine Sodium [Levothyroxine 125mcg (0.125mg) Tab] 125 mcg PO DAILY Aspirin [Aspir 81] 81 mg PO DAILY Metoprolol Succinate [Toprol XL 100mg tablet] 100 mg PO DAILY Montelukast Sodium [Singulair 10mg tablet] 10 mg PO PM Fexofenadine HCl 180 mg PO DAILY - Problem Reconciliation Problems Reviewed?: Yes
--- NOTE | 2019-12-24 08:21 | HMH.ACPN2 ---
Internal Medicine - PN: Subj *Date: 12/24/19 *Time: 08:21 Interval history: Patient has no complaints this morning and denies pain. He has had multiple small loose bowel movements Exam Vital signs and Labs for Last 24 Hours: Temp Pulse Resp BP Pulse Ox 97.6 F 60 16 146/74 H 99 12/24/19 07:55 12/24/19 07:55 12/24/19 07:55 12/24/19 07:55 12/24/19 07:55 I & O for Last 24 hours: Intake & Output 12/21/19 12/22/19 12/23/19 12/24/19 11:59 11:59 11:59 11:59 Intake Total 2907 / 2907 4400 / 4400 1890 / 1890 390 / 390 Output Total 730 / 730 100 / 100 300 / 300 Balance 2177 / 2177 4300 / 4300 1890 / 1890 90 / 90 Weight 194 lb 4 oz 200 lb 1.6 oz 200 lb 2 oz 194 lb 8 oz Microbiology Reports for the Last 24 Hours: Microbiology 12/18/19 10:10 Blood Blood Culture - Final NO GROWTH AFTER 5 DAYS 12/18/19 10:10 Blood Blood Culture - Final NO GROWTH AFTER 5 DAYS 12/20/19 23:48 Sputum - Expectorated Sputum Gram Stain - Final 12/20/19 23:48 Sputum - Expectorated Sputum Sputum Culture - Final Normal Respiratory Danae Narrative: Patient is sitting up in chair eating breakfast. Lungs are clear. Heart has a regular rate and rhythm. Abdomen is soft. Surgical incision is clean and free of infection Assessment and Plan (1) Cecal volvulus Current visit: Yes Status: Acute Category: Medical Code(s): K56.2 - Volvulus (2) Hypertension Current visit: Yes Status: Acute Category: Medical Code(s): I10 - Essential (primary) hypertension (3) Hypothyroidism Current visit: Yes Status: Acute Category: Medical Code(s): E03.9 - Hypothyroidism, unspecified - Assessment and plan all Dx Assessment and Plan for all problems:: 1. Await surgical evaluation this morning. Possible discharge today
[2019-12-24 08:31] LABS: Basophils # 0.1 K/mm3 (0-0.2); Basophils % 0.6 % (0.1-2.0); Eosinophils # 0.3 K/mm3 (0.0-0.4); Eosinophils % 2.8 % (0.1-12.0); Hematocrit 39.7 % (42.0-52.0); Hemoglobin 14.2 g/dL (14.1-18.0); Lymphocytes # 1.1 K/mm3 (0.7-4.5); Lymphocytes % 11.2 % (10-50); Mean Corpuscular HGB Conc 35.9 g/dL (31.8-35.4); Mean Corpuscular Hemoglobin 30.8 pg (27.0-31.2); Mean Platelet Volume 9.3 fl (7.4-10.4); Monocytes # 0.5 K/mm3 (0.1-1.0); Monocytes % 4.7 % (1.7-9.3); Neutrophils # 7.9 K/mm3 (1.8-7.8); Neutrophils % 80.8 % (37.0-80.0); Platelet Count 255 K/mm3 (142-424); Red Blood Count 4.61 M/mm3 (4.60-6.20); Red Cell Distribution Width 15.5 % (11.5-17.5); White Blood Count 9.8 K/mm3 (4.8-10.8)
--- NOTE | 2019-12-24 09:25 | P.PN_ITS ---
Subjective Narrative: Patient doing quite well with no appreciable issues. Has had some loose stools with some fecal urgency. Tolerating full liquid without difficulty. Exam Vital signs and Labs for Last 24 Hours: Temp Pulse Resp BP Pulse Ox 97.6 F 60 16 146/74 H 99 12/24/19 07:55 12/24/19 07:55 12/24/19 07:55 12/24/19 07:55 12/24/19 07:55 Laboratory Results - last 24 hr 12/24/19 08:05: WBC 9.8, RBC 4.61, Hgb 14.2, Hct 39.7 L, MCV 86.0, MCH 30.8, MCHC 35.9 H, RDW 15.5, Plt Count 255, MPV 9.3, Neut % (Auto) 80.8 H, Lymph % (Auto) 11.2, [place] % (Auto) 4.7, Eos % (Auto) 2.8, Baso % (Auto) 0.6, Neut # (Auto) 7.9 H, Lymph # (Auto) 1.1, [place] # (Auto) 0.5, Eos # (Auto) 0.3, Baso # (Auto) 0.1 I & O for Last 24 hours: Intake & Output 12/21/19 12/22/19 12/23/19 12/24/19 11:59 11:59 11:59 11:59 Intake Total 2907 / 2907 4400 / 4400 1890 / 1890 390 / 390 Output Total 730 / 730 100 / 100 300 / 300 Balance 2177 / 2177 4300 / 4300 1890 / 1890 90 / 90 Weight 194 lb 4 oz 200 lb 1.6 oz 200 lb 2 oz 194 lb 8 oz Microbiology Reports for the Last 24 Hours: Microbiology 12/18/19 10:10 Blood Blood Culture - Final NO GROWTH AFTER 5 DAYS 12/18/19 10:10 Blood Blood Culture - Final NO GROWTH AFTER 5 DAYS 12/20/19 23:48 Sputum - Expectorated Sputum Gram Stain - Final 12/20/19 23:48 Sputum - Expectorated Sputum Sputum Culture - Final Normal Respiratory Danae - *Routine Abdominal Exam Present: soft Comments: Incision clean dry and intact Progress Note: A&P (1) Cecal volvulus Status: Acute Current Visit: Yes (2) Hypertension Status: Acute Current Visit: Yes (3) Hypothyroidism Status: Acute Current Visit: Yes Assessment and Plan for All Diagnoses:: Patient okay from surgical standpoint for discharge home.
--- NOTE | 2019-12-25 09:41 | SW/DCPLANNER ---
Addendum entered by Sharon Peña 12/25/19 11:03: Stephania from [facility] has called stating that patients information has been reviewed and services will begin this week for this patient. Original Note: I have received a home health order for this patient: half-way, PT/OT. I have faxed patient information to [facility]. I will follow up with [facility] once patient information is reviewed.
[2020-01-10 14:54] LABS: POC Glucose,Bedside 200 (70-110)
== END 2019-12-24 10:20 | disposition home health service (06) | DRG 329 ==
LOC: ER 12:53 → 2ND 13:07 → SDC 18:13 → 2ND 18:15
PROVIDERS: Internal Medicine Adolescent Medicine; Surgery; Admitting Provider Family Medicine; Emergency Provider Emergency Medicine; PCP Nurse Practitioner; Visit Provider Family Medicine
PROC: 0DTF0ZZ Resection of Right Large Intestine, Open Approach (ICD-10-PCS; CPT 49000; principal; 2019-12-18 13:00)
DX: K56.2 Volvulus (principal); K55.041 Focal (segmental) acute infarction of large intestine; K65.8 Other peritonitis; J00-J99 Diseases of the respiratory system; Q43.3 Congenital malformations of intestinal fixation; E86.0 Dehydration; E03.9 Hypothyroidism, unspecified; I10 Essential (primary) hypertension; F79 Unspecified intellectual disabilities
CPT/HCPCS: 31500; 94002; 44140; 36415; 70450; 71045; 74176; 80048; 80053; 81001; 82803; 82962; 83605; 83690; 84439; 84443; 84484; 85007; 85025; 86328; 87040; 87070; 87205; 87506; 87581; 87633; 87798; 88307; 93005; 94761; 96365; 96367; 96375; 97116; 97163; 99285; J0330; J1335; J2405; J2543; J2704; J2710; P9047; S0119

== ENCOUNTER → 2020-01-31 11:03 | Outpatient (CLI) | payer MEDICAID, SELFPAY ==
[2020-01-31 14:05] LABS: Coronavirus 19 IgG Antibody Negative (Negative); Coronavirus 19 IgM Antibody Negative (Negative)
== END ==
PROVIDERS: Visit Provider Dentist General Practice
DX: Z01.818 Encounter for other preprocedural examination (principal)
CPT/HCPCS: 36415; 86328

== ENCOUNTER 2020-02-01 07:15 | Day surgery (SDC) | payer MEDICAID, SELFPAY ==
[2020-02-01] VITALS (9 sets, daily range): BP systolic 145–163; BP diastolic 87–98; PULSE 71–100; RESP 16–20; TEMP 36.3–36.9; O2SAT 95–99
--- NOTE | 2020-02-01 09:16 | P.PN_ITS ---
[facility] Anesthesia Checklist - Patient Identification Patient Identification: Arm Band - Structural Data Admitted From: Home Planned Operative Procedure/s: oral exam, x-rays, deep cleaning, scalings, fillings, extractions, crowns Consent for Planned Operative Procedure(s) Verified: Yes Verified Documents: Surgical Consent, History and Physical - NPO Status Verified Time NPO: 00:00 - Additional verifications Anesthesia Reactions: No Hx Blood Transfusions: No Blood Transfusion Reaction: No - Airway Assessment C-Spine Mobility Assessed: Yes (mp2) TMJ Mobility Assessed: Yes Dentition: Poor Dentition - Neurological Assessment Level of Consciousness: Awake, Alert - Anesthesia Plan Anesthesia Risk discussed: Yes Anesthesia Plan: Verified ASA Class: III Anesthesia Type: General [facility] History I have reviewed the patient's past medical history: Yes Medical History: Reports:: Hyperlipidemia, Hypertension Denies:: Cancer, Diabetes Mellitus Type 1, Diabetes Mellitus Type 2, Internal Pacemaker, MRSA, Seizures *Have you ever received a pneumonia vaccine?: No *Have you received a flu vaccine this season?: No Other Medical History: Reports: Hypothyroidism, Other. Denies: Blood Transfusion Reaction Anesthesia experience/problems:: nac Laterality Cases: Bilateral: Tonsillectomy Other Surgeries: Yes: Cholecystectomy, Thyroidectomy, Other. No: Pacemaker Amputation: No Fractures: No - *Social History Last grade of school completed: High school graduate Smoking Status: Never smoker Alcohol Intake: never Substance Use Type: denies use *Occupational Status:: disabled Housing: house Household Members: caregiver *Travel in the last 8 weeks: None Family Hx:: Unable to obtain
--- NOTE | 2020-02-01 09:54 | P.PN_ITS ---
[facility] Anesthesia Record Part I Intake, IV Amount: 1,100 Estimated blood loss (mL): 10 Urine output (mL): 0 Blood Pressure: 162/88 SaO2: 96 Pulse Rate: 100 Respiratory Rate: 16 Temperature: 98.1 F Patient is:: Drowsy, Stable Stable to PACU at:: 09:50
--- NOTE | 2020-02-01 10:15 | PC.NURSE ---
1011-pt sipping on water at this time w/out difficulty
--- NOTE | 2020-02-01 10:18 | PC.NURSE ---
1017-detailed report called to Mukul,RN 1020-pt transported to post op via stretcher w/brandyn rails up, family at bedside, vss
--- NOTE | 2020-02-01 20:15 | P.PN_ITS ---
[facility] Anesthesia Record Part II Discharge Time: 10:20 Destination: Surgical Day Care (OP Surgery) PACU nurse assessment reviewed?: Yes Patient Condition:: Good Anesthesia Complications:: None Swallowing reflex intact?: Yes Cyanosis?: No Blood Pressure: 162/96 Pulse Rate: 87 Temperature: 97.9 F Mental Status: Alert & Oriented Pain level:: 0 Nausea and/or vomitting:: None Intake, IV Amount: 0
--- NOTE | 2020-02-02 16:08 | P.PCN_ITS ---
Date of procedure: 02/01/20 Date of : 1960 Pre-op Diagnosis:: Severe dental decay. Post-op diagnosis:: same Procedure performed:: The 59, M patient was transported to the [facility] OR pre operative holding room per his sister. In the holding room, an IV was started. The patient was then transported to the operating room where Mervin was nasotracheal intubated. Anesthesia was induced and maintained. The patient was draped in the usual manner. 18 intraoral x-rays were taken. The throat was suctioned free of debris. One single moist throat pack was placed in the posterior oral pharynx. A complete intra-oral exam and review of the complete set of x-rays was completed. The patient was found to have all remaining teeth in very poor condition. Surgical extractions were completed on tooth #3, #5, #6, #8, #9, #11, #13, #21, #22, #23, #24, #25, #26, #31. Used #15 blade and periosteal elevator to lay buccal flap. Used small, medium and large elevators to loosen teeth. Removed tooth with forceps. All tooth structure of the extracted tooth was delivered. Alveleoplasty was completed on the UR, LR, UL, and LL quadrants.Irrigated well after socket curettage. Hemostasis was achieved and direct pressure using gauze. Closed extraction sites with chromic 3.0 GUT suture in simple continuous figure eight stitch. Estimated blood loss was 5cc. The patient tolerated all surgical procedures well and there were no surgical complications. The throat was irrigated and suctioned free of debris. The throat pack was removed. The patient was extubated without complications and taken to the postoperative anesthetic recovery room in sati sfactory condition. Surgeon:: Coretta Delatorre DMD [employer] Supervisor(s):: Lor Galvan ASSISTANT STORE MANAGER:: Jama Vargas Anesthesia: GETA Estimated blood loss (mL): 5 Operative note:: Same as procedure performed. Disposition: PACU Specimens:: 14 teeth removed Complications:: None
== END 2020-02-01 10:50 | disposition home or self-care (01) ==
LOC: OR 07:17
PROVIDERS: PCP Nurse Practitioner; Visit Provider Dentist General Practice
PROC: (CPT 41899; principal; 2020-02-01 10:00)
DX: K02.9 Dental caries, unspecified (principal); F79 Unspecified intellectual disabilities
CPT/HCPCS: 41899; D7210; D7310; J2405; J2710

== ENCOUNTER → 2020-05-13 15:26 | Outpatient (CLI) | payer MEDICAID, SELFPAY ==
[2020-05-13 15:55] LABS: Basophils # 0.1 K/mm3 (0-0.2); Basophils % 1.3 % (0.1-2.0); Eosinophils # 0.3 K/mm3 (0.0-0.4); Eosinophils % 3.4 % (0.1-12.0); Hematocrit 45.1 % (42.0-52.0); Hemoglobin 15.1 g/dL (14.1-18.0); Lymphocytes # 1.9 K/mm3 (0.7-4.5); Mean Corpuscular HGB Conc 33.4 g/dL (31.8-35.4); Mean Corpuscular Hemoglobin 28.4 pg (27.0-31.2); Mean Corpuscular Volume 85.1 fl (80-94); Mean Platelet Volume 7.5 fl (7.4-10.4); Monocytes # 0.5 K/mm3 (0.1-1.0); Monocytes % 6.3 % (1.7-9.3); Neutrophils # 5.2 K/mm3 (1.8-7.8); Neutrophils % 65.1 % (37.0-80.0); Platelet Count 237 K/mm3 (142-424); Red Cell Distribution Width 15.6 % (11.5-17.5)
[2020-05-13 16:22] LABS: Chloride 104 mmol/L (98-107); Potassium 3.8 mmoL/L (3.5-5.1); Sodium 141 mmol/L (136-145)
[2020-05-13 16:25] LABS: Anion Gap 13.8 mEq/L (5-15); Blood Urea Nitrogen 12 mg/dl (9-20); Calcium 9.1 mg/dl (8.4-10.2); Carbon Dioxide 27 mmol/L (22.0-30.0); Estimated Glomerular Filt Rate 62 ml/min (>60); GFR (African American) 75 ML/MIN (>60); Glucose 84 mg/dl (74-100)
[2020-05-13 17:52] LABS: Coronavirus 19 IgG Antibody Negative (Negative); Coronavirus 19 IgM Antibody Negative (Negative)
== END ==
PROVIDERS: Visit Provider Surgery
DX: Z01.818 Encounter for other preprocedural examination (principal); K40.90 Unilateral inguinal hernia, without obstruction or gangrene, not specified as recurrent
CPT/HCPCS: 36415; 80048; 85025; 86328

== ENCOUNTER 2020-05-15 06:13 | Day surgery (SDC) | payer MEDICAID, SELFPAY ==
[2020-05-15] VITALS (13 sets, daily range): BP systolic 134–162; BP diastolic 88–105; PULSE 63–92; RESP 15–19; TEMP 36.5–43; O2SAT 92–100
--- NOTE | 2020-05-15 11:21 | HMH.ANESCL ---
[facility] Anesthesia Checklist - Patient Identification Patient Identification: Arm Band, Guardian - Structural Data Admitted From: Home Planned Operative Procedure/s: Right Inguinal Hernia Repair Consent for Planned Operative Procedure(s) Verified: Yes Verified Documents: Surgical Consent, History and Physical - NPO Status Verified Time NPO: 00:00 - Additional verifications Anesthesia Reactions: No Hx Blood Transfusions: No Blood Transfusion Reaction: No - Airway Assessment C-Spine Mobility Assessed: Yes (mp2) TMJ Mobility Assessed: Yes Dentition: Good Dentition - Neurological Assessment Level of Consciousness: Awake, Alert - Anesthesia Plan Anesthesia Risk discussed: Yes Anesthesia Plan: Verified ASA Class: III Anesthesia Type: General [facility] History I have reviewed the patient's past medical history: Yes Medical History: Reports:: Hyperlipidemia, Hypertension Denies:: Cancer, Diabetes Mellitus Type 1, Diabetes Mellitus Type 2, Internal Pacemaker, MRSA, Seizures *Have you ever received a pneumonia vaccine?: No *Have you received a flu vaccine this season?: No Other Medical History: Reports: Hypothyroidism, Other. Denies: Blood Transfusion Reaction Anesthesia experience/problems:: nac Laterality Cases: Bilateral: Tonsillectomy Other Surgeries: Yes: Cholecystectomy, Colonoscopy, Thyroidectomy, Other. No: Pacemaker Amputation: No Fractures: No - *Social History Last grade of school completed: High school graduate Smoking Status: Never smoker Alcohol Intake: never Substance Use Type: denies use *Occupational Status:: disabled Housing: house Household Members: caregiver *Travel in the last 8 weeks: None Family Hx:: Unable to obtain
--- NOTE | 2020-05-15 11:23 | HMH.ANESI ---
[facility] Anesthesia Record Part I Intake, IV Amount: 1,400 Estimated blood loss (mL): 25 Urine output (mL): 100 Blood Pressure: 134/90 SaO2: 96 Pulse Rate: 91 Respiratory Rate: 16 Temperature: 98 F Patient is:: Drowsy, Stable Stable to PACU at:: 11:20
--- NOTE | 2020-05-15 11:45 | P.OP_ITS ---
Date of procedure: 05/15/20 Pre-op Diagnosis:: Massive right inguinal hernia Post-op Diagnosis:: Same Procedure performed:: Open repair of massive right inguinal hernia with placement of extra-large Bard prefix mesh plug with onlay mesh Surgeon:: Italo Good MD FIBRE TECHNOLOGIST:: Indio Rey Anesthesia: GETA Estimated blood loss (mL): 30 Operative findings:: He had a massive right inguinal hernia with essentially complete loss of the inguinal floor as a direct hernia but also large indirect component as well. Due to the chronic longstanding nature of the hernia muscle tissues were severely attenuated with almost nonexistent external oblique musculature. Operative note:: Patient was taken to the operating room. He was positioned in a supine position. General anesthesia was induced via endotracheal tube. Payne catheter was placed. He was prepped and draped in the standard surgical fashion. Patient was positioned in Trendelenburg position. Incision was made in the right inguinal area superior to landmarks identifying the inguinal ligament. Dissection was carried down through subcutaneous tissues and Maryam's fascia. External oblique muscle was encountered and was almost nonexistent. It was severely thinned and attenuated due to the longstanding chronic nature of the very large inguinal hernia. The cord structures were identified and dissected free. There was a very large direct hernia with thickened hernia sac. There was also large defect as an indirect hernia. Ultimately this large hernia was able to be dissected free from surrounding tissues. Due to the potential that this was a sliding hernia the hernia sac was not opened but it was reduced. Prolonged dissection was performed in an effort to identify fascial tissues and normal anatomy which would allow for placement of mesh for reconstruction of the inguinal floor. Extra-large Bard mesh plug and onlay mesh were brought onto the field. The mesh onlay was sewn to Nelson's ligament and apparent shelving edge of the inguinal ligament as well as the transversalis musculature and fascia with numerous interrupted 2-0 Prolene sutures. At the region of the apparent internal ring extra-large mesh plug was inserted and sutured in place with interrupted 2-0 PDS sutures. The 2 leaves of the mesh were used to encircle the cord structures and sutured to one another with numerous interrupted 2-0 Prolene sutures. Cord structures were returned. Wound was irrigated. Extra oblique muscles closed with a running 2-0 Vicryl suture. Maryam's fascia was closed with running 2-0 Vicryl. Skin was closed with 4-0 Monocryl in a running subcuticular fashion. Steri-Strips and dressings were applied. Condition: stable Disposition: PACU Complications:: None immediately apparent
--- NOTE | 2020-05-15 11:58 | SUR.PHASEI ---
From 1120 -1157 patient on 4L NC in mouth, at 1157 NC moved to nose and decreased to 2L, O2 saturation has decreased fromn 98% to 92%. Have tried multiples times to wake patient by talking loudly and calling his name, gently shaking and calling his name, and brisk sternal rub and calling his name, patient opens his eyes, but does not speak, then continues to sleep.
--- NOTE | 2020-05-15 13:28 | HMH.ANESII ---
[facility] Anesthesia Record Part II Discharge Time: 11:50 Destination: Surgical Day Care (OP Surgery) PACU nurse assessment reviewed?: Yes Patient Condition:: Good Anesthesia Complications:: None Swallowing reflex intact?: Yes Cyanosis?: No Blood Pressure: 145/97 Pulse Rate: 85 Temperature: 98.4 F Mental Status: Alert & Oriented Pain level:: 0 Nausea and/or vomitting:: None Intake, IV Amount: 50
--- NOTE | 2020-05-15 14:34 | SUR.PHASEI ---
Report to Leticia Willis RN: Patient has been sleeping since arrival to PACU. Several/multiple attempts have been made to wake him, without success. Patient's VSS, suggesting he does not need narcan. Patient will open his eyes when shaken, but falls immediately back to sleep. No s/s pain or distress. As a last attempt to wake patient, using painful stimuli, one of his monitor pads were removed from the hair on his chest. He made a brief Ouch! and fell back to sleep.
[2020-05-15 15:25] LABS: Microscopic, Urine URINE MICROSCOPIC (MICROSCOPIC)
[2020-05-15 16:36] LABS: Appearance,Urine CLEAR (Clear); Bilirubin,Urine Negative (Negative); Blood, Urine Negative (Negative); Color,Urine YELLOW (Yellow); Glucose,Urine (UA) Negative (Negative); Ketones,Urine Negative (Negative); Leukocyte Esterase,Urine Negative (Negative); Nitrate,Urine Negative (Negative); Protein,Urine 2+ (Negative); Specific Gravity, Urine >= 1.030 (1.005-1.030); Urobilinogen,Urine 0.2 EU/dl (0.2)
[2020-05-15 17:06] LABS: Bacteria,Urine Trace /lpf; Calcium Oxalate Crystals,Urine 2+ /lpf; RBC,Urine Occasional #/hpf (0-3); Squamous Epithelial Cell,Urine Occasional #/hpf (0-5); WBC,Urine Occasional #/hpf (0-3)
== END 2020-05-15 12:50 | disposition home or self-care (01) ==
LOC: OR 06:15
PROVIDERS: PCP Nurse Practitioner; Visit Provider Surgery
PROC: (CPT 49505; principal; 2020-05-15 07:30)
DX: K40.90 Unilateral inguinal hernia, without obstruction or gangrene, not specified as recurrent (principal); E78.5 Hyperlipidemia, unspecified; I10 Essential (primary) hypertension; E03.9 Hypothyroidism, unspecified; Z90.49 Acquired absence of other specified parts of digestive tract; Z90.89 Acquired absence of other organs; Z79.82 Long term (current) use of aspirin; Z79.899 Other long term (current) drug therapy
CPT/HCPCS: 49505; 81001; 96374; J2405; J2710

== ENCOUNTER → 2020-11-21 16:12 | Outpatient (CLI) | payer MEDICAID, SELFPAY ==
[2020-11-21 17:08] LABS: Blood Urea Nitrogen 17 mg/dl (9-20); Estimated Glomerular Filt Rate 69 ml/min (>60); GFR (African American) 83 ML/MIN (>60)
== END ==
PROVIDERS: Visit Provider Surgery
DX: K46.9 Unspecified abdominal hernia without obstruction or gangrene (principal)
CPT/HCPCS: 36415; 82565; 84520

== ENCOUNTER → 2020-11-22 09:37 | Outpatient (CLI) | payer MEDICAID, SELFPAY ==
--- NOTE | 2020-11-22 09:37 | CT_ITS ---
PROCEDURE: CT ABDOMEN PELVIS W CON CLINICAL INDICATION: hernia COMPARISON: CT CT ABDOMEN PELVIS WO CON from 12/18/2019 TECHNIQUE: IV Contrast: 75ML Isovue 370 Oral Contrast 450ml Redicat Axial images obtained with sagittal and coronal reformats. All CT scans at the facility use one or more dose reduction, viz: automated exposure control, ma/kV adjustment per patient size (including targeted exams where dose is matched to indication, i.e. head), or iterative reconstruction technique. FINDINGS: LOWER THORAX: Calcified granuloma in the right middle lobe. Minor bibasal atelectasis. HEPATOBILIARY: Liver: Diffuse fatty infiltration of the liver is noted. No focal liver lesions. Gallbladder: The gallbladder is surgically absent. Biliary: No intrahepatic or extrahepatic ductal dilation. PANCREAS: There is prominence of the head of the pancreas without evidence of focal hypoenhancing lesions. The rest of the pancreas appears unremarkable. SPLEEN:No splenomegaly. Splenule is noted measuring 1.3 centimeters. ADRENALS:No adrenal nodules. KIDNEYS/URETERS/BLADDER: No hydronephrosis, stones, or solid mass lesions are seen in the visualized portions of the kidneys.Focal hypodense lesion is noted in the left kidney measuring 1.5 centimeters, demonstrates rim calcification, unchanged compared to prior study. This most likely represents a complex cyst. No other focal renal lesions are identified. PERITONEUM / RETROPERITONEUM: No free air or fluid. Peritoneum LYMPH NODES: No free air or fluid. VASCULAR: The aorta is normal in caliber, without evidence of abdominal aortic aneurysm or dissection. Scattered atherosclerotic vascular calcifications are noted. The prostate gland is unremarkable. GI TRACT: No distention, wall thickening, or inflammatory stranding. The appendix is not visualized. No secondary signs of appendicitis noted. ABDOMINAL WALL: There are 3 areas of small bowel herniation noted through the anterior abdominal wall incisional hernial site. Multiple fat containing anterior abdominal wall hernias are noted at the inferior aspect of the incisional site. Moderate fat and fluid containing right inguinal hernia is noted. Moderate fat containing left inguinal hernia is noted. BONES: Unremarkable. IMPRESSION: Three areas of small-bowel herniation at the anterior abdominal wall incisional hernial site. Multiple fat containing anterior abdominal wall hernias are noted adjacent to the incisional is site. Bilateral fat and fluid containing inguinal hernias. No small bowel obstruction or strangulation. No evidence of incarceration noted. Prominence of the head of the pancreas without focal hypoenhancing lesions on the current single phase study. Ultrasound of the pancreas is recommended in the 1st instance. MRI of the pancreas without and with contrast is suggested for further evaluation. Dictated by: Nadya Reich 11/22/2020 14:53 Nadya Reich in [facility] 11/22/2020 14:53
== END ==
PROVIDERS: PCP Nurse Practitioner; Visit Provider Surgery
DX: K43.9 Ventral hernia without obstruction or gangrene (principal)
CPT/HCPCS: 74177; Q9967

== ENCOUNTER → 2020-12-28 14:58 | Outpatient (CLI) | payer MEDICAID, SELFPAY | PROVIDERS: PCP Family Medicine; Visit Provider Surgery | DX: Z01.812 Encounter for preprocedural laboratory examination (principal); Z20.822 Contact with and (suspected) exposure to COVID-19 | CPT/HCPCS: U0003 ==

== ENCOUNTER → 2020-12-30 08:42 | Outpatient (CLI) | payer MEDICAID, SELFPAY ==
[2020-12-30 09:50] LABS: Basophils # 0.1 K/mm3 (0-0.2); Basophils % 1.3 % (0.1-2.0); Eosinophils # 0.4 K/mm3 (0.0-0.4); Eosinophils % 6.1 % (0.1-12.0); Hematocrit 44.7 % (42.0-52.0); Hemoglobin 15.4 g/dL (14.1-18.0); Lymphocytes # 1.9 K/mm3 (0.7-4.5); Lymphocytes % 26.4 % (10-50); Mean Corpuscular HGB Conc 34.5 g/dL (31.8-35.4); Mean Corpuscular Hemoglobin 29.7 pg (27.0-31.2); Monocytes # 0.4 K/mm3 (0.1-1.0); Neutrophils # 4.4 K/mm3 (1.8-7.8); Neutrophils % 60.1 % (37.0-80.0); Platelet Count 194 K/mm3 (142-424); Red Cell Distribution Width 15.8 % (11.5-17.5); White Blood Count 7.3 K/mm3 (4.8-10.8)
[2020-12-30 10:25] LABS: Chloride 109 mmol/L (98-107); Sodium 143 mmol/L (136-145)
[2020-12-30 10:27] LABS: Blood Urea Nitrogen 16 mg/dl (9-20); Estimated Glomerular Filt Rate 69 ml/min (>60); GFR (African American) 83 ML/MIN (>60)
[2020-12-30 10:28] LABS: Calcium 9.1 mg/dl (8.4-10.2); Carbon Dioxide 22 mmol/L (22.0-30.0); Glucose 97 mg/dl (74-100)
== END ==
PROVIDERS: Visit Provider Surgery
DX: K40.90 Unilateral inguinal hernia, without obstruction or gangrene, not specified as recurrent (principal)
CPT/HCPCS: 36415; 80048; 85025

== ENCOUNTER 2020-12-31 07:21 | Day surgery (SDC) | payer MEDICAID, SELFPAY ==
[2020-12-30 08:19] VITALS: BMI 34.4
[2020-12-31] VITALS (9 sets, daily range): BP systolic 141–160; BP diastolic 84–100; PULSE 64–88; RESP 16–20; TEMP 36.2–37.1; O2SAT 91–97
--- NOTE | 2020-12-31 07:31 | P.PN_ITS ---
[facility] Anesthesia Checklist - Patient Identification Patient Identification: Arm Band - Structural Data Admitted From: Home Planned Operative Procedure/s: Ventral hernia repair Consent for Planned Operative Procedure(s) Verified: Yes - NPO Status Verified Time NPO: 00:00 - Additional verifications Anesthesia Reactions: No Hx Blood Transfusions: No Blood Transfusion Reaction: No - Airway Assessment C-Spine Mobility Assessed: Yes TMJ Mobility Assessed: Yes (Very small mouth opening) Dentition: Edentulous - Neurological Assessment Level of Consciousness: Awake Hx Seizures: No Numbness or tingling in extremities: No - Anesthesia Plan Anesthesia Risk discussed: Yes Anesthesia Plan: Verified ASA Class: III Anesthesia Type: General [facility] History I have reviewed the patient's past medical history: Yes Medical History: Reports:: Hyperlipidemia, Hypertension Denies:: Cancer, Diabetes Mellitus Type 1, Diabetes Mellitus Type 2, Internal Pacemaker, MRSA, Seizures *Have you ever received a pneumonia vaccine?: No *Have you received a flu vaccine this season?: No Other Medical History: Reports: Hypothyroidism, Other. Denies: Blood Transfusion Reaction Anesthesia experience/problems:: None Laterality Cases: Bilateral: Tonsillectomy Other Surgeries: Yes: Cholecystectomy, Colonoscopy, Hernia Repair, Thyroidectomy, Other. No: Pacemaker Amputation: No Fractures: No - *Social History Last grade of school completed: High school graduate Smoking Status: Never smoker Alcohol Intake: never Substance Use Type: denies use *Occupational Status:: disabled Housing: house Household Members: family *Travel in the last 8 weeks: Inside the [facility] Family Hx:: Cancer
--- NOTE | 2020-12-31 08:12 | HMH.GSHP ---
HPI HPI: On 12/18/2019 he underwent emergent laparotomy for peritonitis and had a cecal volvulus with necrosis. He recovered well from that. He does have known bilateral inguinal hernias and he underwent open repair of massive right inguinal hernia on 05/15/2020. Unilateral hernia was performed as the site was much larger and becoming symptomatic. Duration of the procedure was approximately three and half hours. He has remained asymptomatic from the moderately large left inguinal hernia. When I saw him in the office last week for routine follow-up however I had a concern for possible ventral hernia. This has been asymptomatic. He underwent CT scan. This is most notable for Three areas of small-bowel herniation at the anterior abdominal wall incisional hernial site. Multiple fat containing anterior abdominal wall hernias are noted adjacent to the incisional is site. Bilateral fat and fluid containing inguinal hernias. It was also noted that there is prominence of the head of the pancreas and ultrasound of the pancreas was recommended by radiology. He has been asymptomatic. [facility] History I have reviewed the patient's past medical history: Yes Medical History: Reports:: Hyperlipidemia, Hypertension Denies:: Cancer, Diabetes Mellitus Type 1, Diabetes Mellitus Type 2, Internal Pacemaker, MRSA, Seizures *Have you ever received a pneumonia vaccine?: No *Have you received a flu vaccine this season?: No Other Medical History: Reports: Hypothyroidism, Other. Denies: Blood Transfusion Reaction Anesthesia experience/problems:: None Laterality Cases: Bilateral: Tonsillectomy Other Surgeries: Yes: Cholecystectomy, Colonoscopy, Hernia Repair, Thyroidectomy, Other. No: Pacemaker Amputation: No Fractures: No - *Social History Last grade of school completed: High school graduate Smoking Status: Never smoker Alcohol Intake: never Substance Use Type: denies use *Occupational Status:: disabled Housing: house Household Members: family *Travel in the last 8 weeks: Inside the [facility] Family Hx:: Cancer Review of Systems - Review of Systems Review of systems:: pertinent systems reviewed and negative unless documented below Meds Home Medications Medication Instructions Recorded Confirmed Type Levothyroxine Sodium 125 mcg PO DAILY 04/29/18 12/31/20 History [Levothyroxine 125mcg (0.125mg) Tab] Aspirin [Aspir 81] 81 mg PO DAILY 12/18/19 12/31/20 History Metoprolol Succinate [Toprol XL 100 mg PO DAILY 12/19/19 12/31/20 History 100mg tablet] Montelukast Sodium [Singulair 10mg 10 mg PO PM 12/19/19 12/31/20 History tablet] Allergies Allergy/AdvReac Type Severity Reaction Status Date / Time No Known Allergies Allergy Verified 11/25/20 14:47 Exam Vital signs and Labs for Last 24 Hours: Temp Pulse Resp BP Pulse Ox 98.8 F 64 20 149/100 H 97 12/31/20 07:32 12/31/20 07:32 12/31/20 07:32 12/31/20 07:32 12/31/20 07:32 I & O for Last 24 hours: Intake & Output 12/28/20 12/29/20 12/30/20 12/31/20 11:59 11:59 11:59 11:59 Weight 201 lb - Constitutional no acute distress - *Routine HEENT Exam Head: Present: normocephalic Eye: Present: EOMI, PERRL ENT: Present: mucous membranes moist - *Routine Neck Exam Present: supple. Absent: lymphadenopathy - *Routine Respiratory Exam Present: CTA bilaterally - *Routine Cardiovascular Exam Present: RRR - *Routine Abdominal Exam Present: soft, normoactive bowel sounds, surgical scars. Absent: tenderness Comments: Palpable nontender hernia - *Routine Rectal Exam Rectal:: deferred - *Routine Genitalia Exam Genitalia:: deferred - *Routine Extremities Exam Absent: cyanosis, clubbing, edema - *Routine Skin Exam Present: warm. Absent: rash - *Routine Neurological Exam Present: alert, oriented X3 Assessment and Plan - Assessment and plan all Dx Assessment and Plan for all problems:: Plan for laparoscopic pos
--- NOTE | 2020-12-31 11:08 | HMH.OPNOTE ---
Date of procedure: 12/31/20 Pre-op Diagnosis:: Incisional hernia Post-op Diagnosis:: Same Procedure performed:: Laparoscopic ventral hernia repair with placement of [employer] Com[employer]ix LP mesh (8 x 10 inch) Surgeon:: Italo Good MD [employer] SUPERVISOR:: Other Anesthesia: ADAMA Estimated blood loss (mL): 20 Clinical Note:: Patient is a 60-year-old male well-known to md. 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 He recovered well from that. He does have known bilateral inguinal hernias and he underwent open repair of massive right inguinal hernia on 05/15/2020. Unilateral hernia was performed as the site was much larger and becoming symptomatic. Duration of the procedure was approximately three and half hours. He has remained asymptomatic from the moderately large left inguinal hernia. When I saw him in the office recently for routine follow-up however I had a concern for possible ventral hernia. This has been asymptomatic. He underwent CT scan. This is most notable for Three areas of small-bowel herniation at the anterior abdominal wall incisional hernial site. Multiple fat containing anterior abdominal wall hernias are noted adjacent to the incisional is site. It was also noted that there is prominence of the head of the pancreas and ultrasound of the pancreas and possible MRI of the pancreas was recommended by radiology to be ultimately performed. He has been asymptomatic. Plan was for attempted laparoscopic repair given the size and number of the hernias with bowel involvement. Operative findings:: Patient had numerous hernias in the midline some containing bowel with small bowel densely adherent to the anterior abdomen in the right upper quadrant. Operative note:: Patient was taken to the operating room. He was positioned supine position. General anesthesia was induced. He was given preoperative intravenous antibiotics. Payne catheter was placed. Abdomen was prepped and draped in the standard surgical fashion. Through 5 mm left subcostal incision 5 mm optical trocar was inserted. CO2 pneumoperitoneum was achieved to 15 mmHg. He was noted to have some adhesions to the anterior abdomen consisting of omentum and loops of small bowel. Hernias were easily identified. Ultimately 5 mm trocar was inserted in the left lower quadrant, 12 mm in the right upper quadrant, 5 mm in the right lateral area and 5 mm trocar in the right lower quadrant. Dissection was carried out carefully taking down the adhesions using Metzenbaum dissection with minimal use of ANNA ultrasonic harmonic miranda and blunt dissection. Small bowel loops were densely adherent to the right upper quadrant. Meticulous dissection was carried out freeing this from the anterior abdominal wall. He had numerous hernias throughout his previous midline scar. The boundaries of the hernia defects were marked with a skin marker. To allow for at least 3 cm fascial overlap this required 8 x 10 inch Bard Com[employer]ix LP mesh. This was brought onto the field. Skin was marked with a skin marker for planned placement. Mesh was then rolled and inserted into the peritoneal cavity and oriented. Ultimately after manipulation and positioning of the mesh were intracorporeally the balloon positioning system would not sustain insufflation. Therefore this mesh was removed from the peritoneal cavity and an additional 8 x 10 similar mesh was brought on the field and inserted. Through the 1 mm incision in the midline the balloon positioning tubing was brought through the anterior abdominal wall with the Endo Close device. Balloon was inflated and mesh was positioned intracorporeally to overlap the fascial edges. Mesh was then secured to the anterior abdominal wall with the OPTi fix device around its periphery. After just a few OPTi fix were deployed the balloon positioning system was deflated and removed. Mesh was then secured entirely around its periph
--- NOTE | 2020-12-31 11:23 | P.PN_ITS ---
[facility] Anesthesia Record Part I Intake, IV Amount: 800 Estimated blood loss (mL): 10 Urine output (mL): 0 Blood Pressure: 150/95 SaO2: 92 Pulse Rate: 84 Respiratory Rate: 16 Temperature: 97.6 F Patient is:: Drowsy, Oral/Nasal airway Stable to PACU at:: 11:20
--- NOTE | 2020-12-31 11:55 | PC.NURSE ---
1148-detailed report given to ANGEL Chow 1150-pt transported to post op via stretcher w/brandyn rails up and left in care of ANGEL Chow and ANGEL Pilali with bed locked in lowest position, vss, pt stable
[2020-12-31 16:13] LABS: Microscopic,Cath URINE MICROSCOPIC (MICROSCOPIC)
[2020-12-31 16:17] LABS: Appearance,Urine/Cath CLEAR (Clear); Bilirubin,Cath Negative (Negative); Blood, Urine/Cath Negative (Negative); Color,Urine/Cath YELLOW (Yellow); Glucose,Urine/Cath (UA) Negative (Negative); Ketones,Urine/Cath Negative (Negative); Leukocyte Esterase,Cath Negative (Negative); Nitrate,Cath Negative (Negative); Protein,Urine/Cath Negative (Negative); Specific Gravity, Urine/Cath 1.015 (1.005-1.030); Urobilinogen,Cath 0.2 EU/dl (0.2)
--- NOTE | 2021-01-01 12:21 | HMH.ANESII ---
[facility] Anesthesia Record Part II Discharge Time: 11:50 Destination: Surgical Day Care (OP Surgery) PACU nurse assessment reviewed?: Yes Patient Condition:: Good Anesthesia Complications:: None Swallowing reflex intact?: Yes Cyanosis?: No Blood Pressure: 160/90 Pulse Rate: 88 Temperature: 97.3 F Mental Status: Alert & Oriented Pain level:: 0 Nausea and/or vomitting:: None Intake, IV Amount: 0
[2021-01-01 12:22] VITALS: BP 160/90; PULSE 88; TEMP 36.3
== END 2020-12-31 12:21 | disposition home or self-care (01) ==
LOC: OR 07:22
PROVIDERS: PCP Family Medicine; Visit Provider Surgery
PROC: 0WQF4ZZ Repair Abdominal Wall, Percutaneous Endoscopic Approach (ICD-10-PCS; CPT 49654; principal; 2020-12-31 08:45)
DX: K43.2 Incisional hernia without obstruction or gangrene (principal); K66.0 Peritoneal adhesions (postprocedural) (postinfection); E78.5 Hyperlipidemia, unspecified; I10 Essential (primary) hypertension; E03.9 Hypothyroidism, unspecified; Z79.82 Long term (current) use of aspirin; Z79.899 Other long term (current) drug therapy; Z80.9 Family history of malignant neoplasm, unspecified
CPT/HCPCS: 49654; 81001; 96374; C1781; J2405

== ENCOUNTER 2021-01-03 10:21 | Inpatient (IN) | payer MEDICAID, SELFPAY ==
[2021-01-03] VITALS (8 sets, daily range): BP systolic 128–181; BP diastolic 81–113; PULSE 58–80; RESP 15–20; TEMP 36.6–36.9; O2SAT 95–100; BMI 34.4; BMI 31.6
--- NOTE | 2021-01-03 10:26 | HMH.EDGENADL ---
ED Disposition Clinical Impression: Ileus, Hypokalemia Postoperative complication Qualifiers: Surgical complication system/body Area: digestive system Surgical complication type: unspecified Procedure type: digestive system Qualified Code(s): K91.89 - Other postprocedural complications and disorders of digestive system Disposition: Admitted as Observation Condition on Discharge: Good Time of Disposition: 14:30 - Critical Care Critical Care Time: No Attestation: On , the high probability of a clinically significant, sudden or life threatening deterioration of the following system(s) required my full and direct attention, intervention and personal management. The time I documented below is in addition to time spent performing reported procedures but includes the following listed in this critical care notation. Medical Decision Making - Medical Records Medical records reviewed: Yes: I reviewed the patient's medical records. - Mateo Inquiry Pt receiving controlled substance: No Vital Signs: 01/03/21 10:38 01/03/21 13:21 01/03/21 14:30 Temperature 97.9 F Temperature Source Oral Pulse Rate 60 73 Pulse Rate [Right Brachial] 58 L Respiratory Rate 20 18 Blood Pressure 137/85 181/113 H Blood Pressure [Right Arm] 161/92 H Blood Pressure Mean 135 Blood Pressure Mean [Right Arm] 115 Blood Pressure Source Automatic Cuff Blood Pressure Source [Right Arm] Automatic Cuff Blood Pressure Position Sitting Blood Pressure Position [Right Arm] Sitting 02 Sat by Pulse Oximetry 100 99 Oxygen Delivery Method Room Air Room Air - Lab Data Lab results reviewed: Yes: I reviewed the patient's lab results. Lab Results 01/03/21 12:43: Sodium 141, Potassium 2.4 L*, Chloride 97 L, Carbon Dioxide 26, Anion Gap 20.4 H, BUN 23 H, Creatinine 0.90, Estimated Creat Clear 114, Estimated GFR 86, Est GFR ( Amer) 105, Glucose 178 H, Calcium 9.4 Result diagrams: 01/03/21 12:43 Orders (Tests/Meds): ED MEDICATIONS Discontinued Medications Generic Name Dose Route Start Last Admin Trade Name Freq PRN Reason Stop Dose Admin Chlorpromazine HCl 25 mg 01/03/21 10:42 01/03/21 11:30 Chlorpromazine 25mg/Ml Amp IM 01/03/21 10:43 25 mg ONCE ONE Administration Lactated Ringer's 500 mls @ 999 mls/hr 01/03/21 10:45 01/03/21 11:31 Lactated Ringer's 1000 Ml Bag IV 01/03/21 11:15 999 mls/hr .Q31M SUSANNE Administration Iopamidol 75 ml 01/03/21 13:35 01/03/21 13:36 Iopamidol-370 (76%);100ml Bottle IV 01/03/21 13:36 75 ml ONCE ONE Administration Potassium Chloride 40 meq 01/03/21 13:10 01/03/21 14:47 Potassium Chloride 20meq/15ml Udc PO 01/03/21 13:11 Not Given ONCE ONE Sodium Chloride 10 ml 01/03/21 13:35 01/03/21 13:36 Sodium Chloride 0.9% 10ml Syr (Rad Only) IV 01/03/21 13:36 10 ml ONCE ONE Administration ORDERS Category Date Time Status Rapid PCR Covid and Flu A/B Stat Lab 01/03/21 14:35 Received - CT Data CT Scan: Abdomen, Pelvis Time Received: 14:[address] Reviewed: Yes: I have reviewed the patient's CT results, I have viewed the radiologist's interpretation Preliminary Findings: Abnormal Findings Narrative: Possible partial small bowel obstruction and ileus Medical Decision Narrative: 60yo M evaluated for postoperative hiccups. Patient no acute distress initial evaluation. Surgical sites are still covered with bandages from the day of surgery and only one has minimal strikethrough. Exam is otherwise benign. Patient treated with IV fluids and Thorazine IM. Patient's hiccups have resolved. Upon follow-up, his family member states he has been intolerant of p.o. and they think his stomach might be bigger. Given the concern fact the patient is unable to provide any input to his HPI, patient sent for CT of his abdomen pelvis. Scan results reviewed by me concerning for small bowel obstruction versus ileus. Radiology report agrees. Case discussed
--- NOTE | 2021-01-03 11:50 | CT_ITS ---
PROCEDURE: CT ABDOMEN PELVIS W CON CLINICAL INDICATION: recent surg; now N/V/D Recent lap hernia repair COMPARISON: CT ABDPELW CT abdomen pelvis w con from 06/01/[address] ABDOMEN PELVIS W CON from 11/22/2020 TECHNIQUE: IV Contrast: 75ML Isovue 370 Oral Contrast None Axial images obtained with sagittal and coronal reformats. All CT scans at the facility use one or more dose reduction, viz: automated exposure control, ma/kV adjustment per patient size (including targeted exams where dose is matched to indication, i.e. head), or iterative reconstruction technique. FINDINGS: LOWER THORAX: There are mild atelectatic changes in the right lung base. Calcified granuloma is present in the right middle lobe. The mid and distal esophagus has a patulous appearance with thickened wall and mild prominence ABDOMEN & PELVIS: Fatty liver infiltration. No focal liver lesion is evident. The spleen, adrenal glands, pancreas, and kidneys show no acute finding. There is a small left renal cyst posteriorly at 1.5 cm. There postsurgical changes of the anterior abdominal wall with interval repair of the multiple small abdominal wall hernias. The hernia sacs are now filled with fluid. There is 1 residual small hernia containing fat 13 cm inferior to the xiphoid process in the ventral abdominal. There has been a prior partial colectomy of the right colon. The anastomosis is in the right lower quadrant with the large and small bowel. There is air-fluid level to this region. The small bowel is moderately distended with air-fluid levels measuring up to 4.5 cm. There are also some nondistended loops of small bowel. A transition point however is not identified. There does not appear to be a recurrence hernia causing small bowel obstruction. Unfortunately oral contrast was not utilized to opacify the bowel loops. Air-fluid levels are present within the large bowel as well. On series 3, image 89 there is some narrowing of the small bowel with questionable bowel wall thickening just proximal to the dilated loop which goes into the large bowel. Cannot exclude the possibility partial obstruction at this region. No free air is evident. There is a prominent left inguinal hernia containing fat. There has been prior repair of the right inguinal hernia. No acute bony anomalies. IMPRESSION: 1. Patulous thickened and mildly prominent mid and distal esophagus which could be due to esophagitis/reflux 2. Status post abdominal wall surgery with repair of multiple small abdominal wall hernias now containing fluid. 3. Moderate dilatation of the small bowel with scattered air-fluid levels. The small bowel dilatation does not appear to be caused by a recurrence hernia. Evaluation is slightly limited however without oral contrast. There has been prior right hemicolectomy with small bowel anastomosis in the right lower quadrant. Just proximal to the anastomotic segment there does appear to be some narrowing of the small bowel which may be causing partial small bowel obstruction. 4. Air-fluid levels are also present in the large bowel. Ileus/enteritis/diarrhea disease is also considered. 5. Status post repair right inguinal hernia with moderate-sized fat containing left inguinal hernia. Dictated by: Fabián Arnold MD 01/03/2021 14:13 Fabián Arnold MD in [facility] 01/03/2021 14:13
[2021-01-03 12:50] LABS: Chloride 97 mmol/L (98-107); Sodium 141 mmol/L (136-145)
[2021-01-03 12:52] LABS: Potassium 2.4 mmoL/L (3.5-5.1)
--- NOTE | 2021-01-03 12:52 | PC.NURSE ---
critical potassium 2.4 called per marco antonio in lab at this time, results reported to CARSON JACKMAN verified pt name and with lab
[2021-01-03 12:53] LABS: Anion Gap 20.4 mEq/L (5-15); Blood Urea Nitrogen 23 mg/dl (9-20); Calcium 9.4 mg/dl (8.4-10.2); Carbon Dioxide 26 mmol/L (22.0-30.0); Creatinine Clearance Estimated 114 mL/min (50-200); Estimated Glomerular Filt Rate 86 ml/min (>60); GFR (African American) 105 ML/MIN (>60); Glucose 178 mg/dl (74-100)
[2021-01-03 14:42] LABS: Coronavirus 19, PCR Not Detected (NotDetected); Influenza A, PCR Not Detected (NotDetected); Influenza B, PCR Not Detected (NotDetected)
--- NOTE | 2021-01-03 14:44 | PC.NURSE ---
BED ASSIGNMENT REQUESTED, ROOM 200, ALL NOTIFIED
--- NOTE | 2021-01-03 15:17 | PC.NURSE ---
Report given to ANGEL Irizarry.
--- NOTE | 2021-01-03 15:22 | P.CONPHA_ITS ---
[facility] Pharmacy VTE Monitoring - Patient Demographics Admission date: 01/03/21 Report Date: 01/03/21 Time: 15:22 Allergies/Adverse Reactions: Patient Allergies No Known Allergies Allergy (Verified 11/25/20 14:47) Height: 1.63 m Weight: 91.172 kg Patient Problems: Current Active Problems Ileus (Acute) Postoperative complication (Acute) Hypokalemia (Acute) - VTE Risk Labs: VTE Related Lab Results BUN 23 mg/dl (9-20) H 01/03/21 12:43 Creatinine 0.90 mg/dl (0.66-1.25) 01/03/21 12:43 Estimated Creat Clear 114 mL/min (50-200) 01/03/21 12:43 Clinical Trial Participant: No - Prophylaxis VTE Prophylaxis Ordered?: Yes Types of VTE Prophylaxis: IPCS Knee High, Pharmacological Pharmacologic Type: Enoxaparin (POST OP)
--- NOTE | 2021-01-03 15:31 | HMH.PHAINT ---
HOME MEDICATION LIST COMPLETED USING LIST FROM DR WILEY'S OFFICE AND LIST FROM [facility]
--- NOTE | 2021-01-03 15:59 | HMH.GSHP ---
HPI HPI: Patient is a 60-year-old male well-known to me. 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 He recovered well from that. He does have known bilateral inguinal hernias and he underwent open repair of massive right inguinal hernia on 05/15/2020. Recently when he was seen for routine follow-up there was concern for possible incisional hernia. I had him undergo CT scan which revealed findings of multiple incisional hernias. Plan was for laparoscopic repair. This was performed on 12/31/2020. He was found to have numerous small anterior abdominal hernias. He had placement of 8 x 10 inch Bard mesh. Plan was for outpatient management. Patient did well on the day of surgery however family states that the following day he developed nausea with some occasional vomiting and intolerance of appreciable oral intake. They contacted the office yesterday on postoperative day #2. He was advised if he was having significant issues to come to the emergency department. Today he had developed some hiccups. Presented to the emergency department. His hiccups were transiently controlled with Thorazine. Given the inability to tolerate adequate oral nutrition and some vomiting he underwent CT scan. This revealed findings of diffuse dilated small and large bowel with air-fluid levels. There is no evidence of any free air or intra-abdominal fluid. Surgery was contacted. Plan was for admission for postoperative ileus. [facility] History I have reviewed the patient's past medical history: Yes Medical History: Reports:: Hyperlipidemia, Hypertension Denies:: Cancer, Diabetes Mellitus Type 1, Diabetes Mellitus Type 2, Internal Pacemaker, MRSA, Seizures *Have you ever received a pneumonia vaccine?: No *Have you received a flu vaccine this season?: No Other Medical History: Reports: Hypothyroidism, Other. Denies: Blood Transfusion Reaction Laterality Cases: Bilateral: Tonsillectomy Other Surgeries: Yes: Cholecystectomy, Colonoscopy, Hernia Repair, Thyroidectomy, Other. No: Pacemaker Amputation: No Fractures: No - *Social History Smoking Status: Never smoker Alcohol Intake: never Substance Use Type: denies use *Occupational Status:: disabled Housing: house Household Members: family *Travel in the last 8 weeks: Inside the [facility] Family Hx:: Unable to obtain Review of Systems - Review of Systems Review of systems:: unable to obtain Meds Home Medications Medication Instructions Recorded Confirmed Type Levothyroxine Sodium 125 mcg PO DAILY 04/29/18 01/03/21 History [Levothyroxine 125mcg (0.125mg) Tab] Aspirin [Aspir 81] 81 mg PO DAILY 12/18/19 01/03/21 History Metoprolol Succinate [Toprol XL 100 mg PO DAILY 12/19/19 01/03/21 History 100mg tablet] Montelukast Sodium [Singulair 10mg 10 mg PO PM 12/19/19 01/03/21 History tablet] Hydrocod/Acet 5/325 mg [[place] 1 - 2 tab PO Q6HP PRN #21 tab 12/31/20 01/03/21 Rx 5/325mg tablet] ondansetron HCL [Zofran 4mg Tab*] 4 mg PO Q8H 01/03/21 01/03/21 History Allergies Allergy/AdvReac Type Severity Reaction Status Date / Time No Known Allergies Allergy Verified 11/25/20 14:47 Exam Vital signs and Labs for Last 24 Hours: Temp Pulse Resp BP Pulse Ox 98 F 80 18 128/91 H 100 01/03/21 15:18 01/03/21 15:18 01/03/21 15:18 01/03/21 15:18 01/03/21 15:08 Laboratory Results - last 24 hr 01/03/21 12:43: Sodium 141, Potassium 2.4 L*, Chloride 97 L, Carbon Dioxide 26, Anion Gap 20.4 H, BUN 23 H, Creatinine 0.90, Estimated Creat Clear 114, Estimated GFR 86, Est GFR ( Amer) 105, Glucose 178 H, Calcium 9.4 01/03/21 14:35: SARS-CoV-2 (PCR) Not detected, Influenza A Untype (PCR) Not detected, Influenza Type B (PCR) Not detected I & O for Last 24 hours: Intake & Output 01/01/21 01/02/21 01/03/21 01/04/21 11:59 11:59 11:59 11:59 Weight 201 lb 184 lb 5 oz - Constitutional no acute distres
[2021-01-03 16:37] LABS: Basophils % 0.3 % (0.1-2.0); Eosinophils # 0.1 K/mm3 (0.0-0.4); Hematocrit 45.9 % (42.0-52.0); Lymphocytes # 0.9 K/mm3 (0.7-4.5); Lymphocytes % 7.2 % (10-50); MANUAL DIFFERENTIAL MANUAL DIFFERENTIAL (MANUAL DIFF); Mean Corpuscular HGB Conc 34.8 g/dL (31.8-35.4); Mean Corpuscular Hemoglobin 28.8 pg (27.0-31.2); Mean Corpuscular Volume 82.7 fl (80-94); Monocytes # 0.7 K/mm3 (0.1-1.0); Monocytes % 5.5 % (1.7-9.3); Neutrophils # 10.4 K/mm3 (1.8-7.8); Platelet Count 259 K/mm3 (142-424); Red Blood Count 5.55 M/mm3 (4.60-6.20); Red Cell Distribution Width 15.8 % (11.5-17.5); White Blood Count 12.1 K/mm3 (4.8-10.8)
[2021-01-03 17:42] LABS: Lymphocytes % 9 % (10-50); Monocytes % 10 % (2-9); Neutrophils % 79 % (42-76); Platelet Estimate Normal; RBC Morphology Normal; Total Cells Counted 100
--- NOTE | 2021-01-03 18:02 | PC.NURSE ---
NO acute changes since pt came to the floor. Pt has tolerated small amounts of ice chips this shift. Surgical site dressings remain clean w/ no new drainage, and intact. Pt has had no c/o abd tenderness this shift. Active bowel sounds in all 4 quads, 1 unwitnessed BM this shift. Pt has ambulated satisfactory w/ standby assist this shift. No other acute changes or complaints at this time, will continue to monitor/.
--- NOTE | 2021-01-03 18:57 | PC.NURSE ---
Spoke to pt's guardians about setting up a password. Wrestler will be the password
[2021-01-04] VITALS (7 sets, daily range): BP systolic 122–162; BP diastolic 60–97; PULSE 56–84; RESP 15–20; TEMP 36.4–36.9; O2SAT 95–100
[2021-01-04 06:36] LABS: Basophils % 0.4 % (0.1-2.0); Eosinophils # 0.1 K/mm3 (0.0-0.4); Eosinophils % 0.9 % (0.1-12.0); Hemoglobin 15.9 g/dL (14.1-18.0); Lymphocytes # 0.9 K/mm3 (0.7-4.5); Lymphocytes % 9.9 % (10-50); Mean Corpuscular HGB Conc 35.2 g/dL (31.8-35.4); Mean Corpuscular Hemoglobin 29.2 pg (27.0-31.2); Mean Platelet Volume 8.4 fl (7.4-10.4); Monocytes # 0.7 K/mm3 (0.1-1.0); Monocytes % 6.9 % (1.7-9.3); Neutrophils # 7.8 K/mm3 (1.8-7.8); Neutrophils % 81.9 % (37.0-80.0); Platelet Count 251 K/mm3 (142-424); Red Blood Count 5.43 M/mm3 (4.60-6.20); Red Cell Distribution Width 15.7 % (11.5-17.5); White Blood Count 9.5 K/mm3 (4.8-10.8)
[2021-01-04 06:39] LABS: Chloride 100 mmol/L (98-107); Sodium 140 mmol/L (136-145)
[2021-01-04 06:42] LABS: Alanine Aminotransferase 71 U/L (12-78); Albumin Level 4.3 g/dl (3.5-5.0); Albumin/Globulin Ratio 1.2 (1.1-1.8); Alkaline Phosphatase 69 U/L (38-126); Anion Gap 14.3 mEq/L (5-15); Aspartate Amino Transferase 63 U/L (17-59); Blood Urea Nitrogen 21 mg/dl (9-20); Carbon Dioxide 28 mmol/L (22.0-30.0); Creatinine Clearance Estimated 105 mL/min (50-200); Estimated Glomerular Filt Rate 86 ml/min (>60); GFR (African American) 105 ML/MIN (>60); Globulin 3.5 g/dL (1.3-3.2); Total Protein,Serum 7.8 g/dl (6.3-8.2)
[2021-01-04 06:43] LABS: Calcium 8.9 mg/dl (8.4-10.2); Glucose 123 mg/dl (74-100)
[2021-01-04 06:48] LABS: Potassium 2.3 mmoL/L (3.5-5.1)
--- NOTE | 2021-01-04 08:43 | P.PN_ITS ---
Subjective Narrative: Patient has been n.p.o. No additional vomiting. Hiccups persist. Still having some diarrhea. Potassium remains low despite some replacement. Progress Note: A&P Assessment and Plan for All Diagnoses:: Continue to replace potassium. May try limited clear liquids. Restart perti nent home medications. Exam Vital signs and Labs for Last 24 Hours: Temp Pulse Resp BP Pulse Ox 98.4 F 74 15 122/60 100 01/04/21 08:00 01/04/21 08:00 01/04/21 08:00 01/04/21 08:00 01/04/21 08:00 Laboratory Results - last 24 hr 01/03/21 12:43: Sodium 141, Potassium 2.4 L*, Chloride 97 L, Carbon Dioxide 26, Anion Gap 20.4 H, BUN 23 H, Creatinine 0.90, Estimated Creat Clear 114, Estimated GFR 86, Est GFR ( Amer) 105, Glucose 178 H, Calcium 9.4 01/03/21 14:35: SARS-CoV-2 (PCR) Not detected, Influenza A Untype (PCR) Not detected, Influenza Type B (PCR) Not detected 01/03/21 16:29: WBC 12.1 H, RBC 5.55, Hgb 16.0, Hct 45.9, MCV 82.7, MCH 28.8, MCHC 34.8, RDW 15.8, Plt Count 259, MPV 8.0, Neut % (Auto) 86.0 H, Lymph % (Auto) 7.2 L, [place] % (Auto) 5.5, Eos % (Auto) 1.0, Baso % (Auto) 0.3, Neut # (Auto) 10.4 H, Lymph # (Auto) 0.9, [place] # (Auto) 0.7, Eos # (Auto) 0.1, Baso # (Auto) 0.0, Total Counted 100, Neutrophils % (Manual) 79 H, Band Neutrophils % 2.0, Lymphocytes % (Manual) 9 L, Monocytes % (Manual) 10 H, Platelet Estimate Normal, RBC Morphology Normal 01/04/21 06:08: WBC 9.5, RBC 5.43, Hgb 15.9, Hct 45.0, MCV 83.0, MCH 29.2, MCHC 35.2, RDW 15.7, Plt Count 251, MPV 8.4, Neut % (Auto) 81.9 H, Lymph % (Auto) 9.9 L, [place] % (Auto) 6.9, Eos % (Auto) 0.9, Baso % (Auto) 0.4, Neut # (Auto) 7.8, Lymph # (Auto) 0.9, [place] # (Auto) 0.7, Eos # (Auto) 0.1, Baso # (Auto) 0.0 01/04/21 06:08: Sodium 140, Potassium 2.3 L*, Chloride 100, Carbon Dioxide 28, Anion Gap 14.3, BUN 21 H, Creatinine 0.90, Estimated Creat Clear 105, Estimated GFR 86, Est GFR ( Amer) 105, Glucose 123 H D, Calcium 8.9, Total Bilirubin 2.0 H, AST 63 H, ALT 71, Alkaline Phosphatase 69, Total Protein 7.8, Albumin 4.3, Globulin 3.5 H, Albumin/Globulin Ratio 1.2 I & O for Last 24 hours: Intake & Output 01/01/21 01/02/21 01/03/21 01/04/21 11:59 11:59 11:59 11:59 Intake Total 120 / 120 Balance 120 / 120 Weight 201 lb 184 lb 5 oz - *Routine Abdominal Exam Present: soft
--- NOTE | 2021-01-04 16:34 | PC.NURSE ---
Pt continues to have hiccups. Active bowel sounds in all 4 quads, multiple loose stools noted this shift. Pt tolerated IV K+ this shift, pt remains NSR on tele. Heart monitor discontinued d/t completion of IV K+. New PIV inserted in GAIL this shift for protonix gtt. PIV was ultrasound guided. Pt has tolerated clear liquids well this shift. No other acute changes or complaints at this time, will continue to monitor.
[2021-01-05 04:00] VITALS: BP 125/77; PULSE 60; RESP 18; TEMP 36.7; O2SAT 97
--- NOTE | 2021-01-05 04:26 | PC.NURSE ---
No acute changes this shift. Pt slept well. IV's are patent. Pt has had multiple loose stools this shift. Active bowel sounds X4. Up to assist X1. And tolerates ambulation well. Lungs are CTA. Pt remains to have hiccups most of this shift. Call light within reach, VSS, no concerns at this time.
[2021-01-05 05:21] VITALS: BMI 32.5
[2021-01-05 06:46] LABS: Chloride 103 mmol/L (98-107)
[2021-01-05 06:47] LABS: Sodium 136 mmol/L (136-145)
[2021-01-05 06:49] LABS: Blood Urea Nitrogen 16 mg/dl (9-20); Creatinine Clearance Estimated 97 mL/min (50-200); Estimated Glomerular Filt Rate 76 ml/min (>60); GFR (African American) 93 ML/MIN (>60)
[2021-01-05 06:50] LABS: Anion Gap 11.3 mEq/L (5-15); Carbon Dioxide 24 mmol/L (22.0-30.0); Glucose 108 mg/dl (74-100)
[2021-01-05 06:53] LABS: Potassium 2.3 mmoL/L (3.5-5.1)
[2021-01-05 07:50] VITALS: BP 121/64; PULSE 55; RESP 17; TEMP 37; O2SAT 97
[2021-01-05 08:00] VITALS: O2SAT 97
[2021-01-05 08:21] LABS: Calcium 7.6 mg/dl (8.4-10.2)
--- NOTE | 2021-01-05 09:07 | HMH.GSPN ---
Subjective Narrative: Patient has no new complaints. Tolerating clear liquids with impunity. Hiccups persist. Still hypokalemic after a total of 8 runs of KCl. No vomiting. Stools improving Progress Note: A&P Assessment and Plan for All Diagnoses:: Continue to replace potassium. Limit to clear liquids. Exam Vital signs and Labs for Last 24 Hours: Temp Pulse Resp BP Pulse Ox 98.6 F 55 L 17 121/64 97 01/05/21 07:50 01/05/21 07:50 01/05/21 07:50 01/05/21 07:50 01/05/21 07:50 Laboratory Results - last 24 hr 01/05/21 06:24: Sodium 136, Potassium 2.3 L*, Chloride 103, Carbon Dioxide 24, Anion Gap 11.3, BUN 16, Creatinine 1.00, Estimated Creat Clear 97, Estimated GFR 76, Est GFR ( Amer) 93, Glucose 108 H, Calcium 7.6 L D I & O for Last 24 hours: Intake & Output 01/02/21 01/03/21 01/04/21 01/05/21 11:59 11:59 11:59 11:59 Intake Total 120 / 120 1460 / 1460 Balance 120 / 120 1460 / 1460 Weight 201 lb 184 lb 5 oz 190 lb 6 oz - *Routine Abdominal Exam Present: soft
[2021-01-05 15:33] VITALS: BP 134/54; PULSE 46; RESP 15; TEMP 36.9; O2SAT 98
--- NOTE | 2021-01-05 16:51 | PC.NURSE ---
Pt has been up to the chair majority of this shift. Pt continues to have hiccups. Pt's stool has become more firm and BM's have lessened. Active bowel sounds in all 4 quads. Lungs CTA. No other acute changes or complaints at this time. Will continue to monitor.
--- NOTE | 2021-01-06 03:42 | PC.NURSE ---
No acute changes this shift. Pt continues to have hiccups most of all shift. Had multiple loose stools throughout the night. Up to ambulate with stand by assist and pt tolerates well. IV's are both patent. Room air with stats in high 90's all night. Clear liquid diet, pt has tolerated well. Call light within reach, VSS, pt is able to make needs known to staff throughout the night. No concerns at this time.
[2021-01-06 04:00] VITALS: BP 114/65; PULSE 100; RESP 18; TEMP 36.8; O2SAT 100
[2021-01-06 07:35] VITALS: BP 139/73; PULSE 46; RESP 16; TEMP 37.3; O2SAT 98
--- NOTE | 2021-01-06 08:28 | HMH.GSPN ---
Subjective Narrative: No new issues. No complaints. The is tolerating clear liquids without issues. Still having some diarrhea. Hiccups persist. Progress Note: A&P Assessment and Plan for All Diagnoses:: Check potassium. May try Reglan for hiccups. Exam Vital signs and Labs for Last 24 Hours: Temp Pulse Resp BP Pulse Ox 99.1 F 46 L 16 139/73 98 01/06/21 07:35 01/06/21 07:35 01/06/21 07:35 01/06/21 07:35 01/06/21 07:35 I & O for Last 24 hours: Intake & Output 01/03/21 01/04/21 01/05/21 01/06/21 11:59 11:59 11:59 11:59 Intake Total 120 / 120 1460 / 1460 6232 / 6232 Output Total 200 / 200 Balance 120 / 120 1460 / 1460 6032 / 6032 Weight 201 lb 184 lb 5 oz 190 lb 6 oz - *Routine Abdominal Exam Present: soft
[2021-01-06 09:06] LABS: Chloride 101 mmol/L (98-107); Sodium 138 mmol/L (136-145)
[2021-01-06 09:09] LABS: Blood Urea Nitrogen 11 mg/dl (9-20); Creatinine Clearance Estimated 97 mL/min (50-200); Estimated Glomerular Filt Rate 76 ml/min (>60); GFR (African American) 93 ML/MIN (>60)
[2021-01-06 09:10] LABS: Anion Gap 12.4 mEq/L (5-15); Calcium 8.2 mg/dl (8.4-10.2); Carbon Dioxide 27 mmol/L (22.0-30.0); Glucose 99 mg/dl (74-100)
[2021-01-06 09:12] LABS: Potassium 2.4 mmoL/L (3.5-5.1)
--- NOTE | 2021-01-06 09:32 | PC.NURSE ---
PT RIGHT HAND SWOLLEN. IV REMOVED AND DSG APPLIED.
--- NOTE | 2021-01-06 10:03 | PC.NURSE ---
LATE ENTRY. 0911- CRITICAL VALUE RECIEVED FROM LAB NAME, , ROOM NUMBER VERIFIED. 0933- CONTACTED DR WILEY'S OFFICE TO REPORT PT CRITICAL POTASSIUM LEVEL. SPOKE WITH BJ. PT NAME, , ROOM NUMBER VERIFIED.
--- NOTE | 2021-01-06 14:18 | PC.NURSE ---
HE IS AOX4 AND ABLE TO MAKE NEEDS KNOWN TO STAFF, HE HAS TOLERATED SITTING UP TO CHAIR FOR MOST OF SHIFT, HE HAS MOSTLY TOLERATED HIS DIET WELL, PT DID DEVELOP HICCUPS THIS MORNING AND HAD ONE EPISODE OF EMESIS. ADMIN BACLOFEN WITH LITTLE TO NO EFFECTIVENESS, AND THORAZINE WHICH SEEMED TO ALLEVIATE PT SYMPTOMS. HIS VITAL SIGNS HAVE REMAINED STABLE ALTHOUGH THIS AM HE WAS BRADYCARDIC WITH HR OF 47, THEREFORE METOPROLOL WAS HELD. HE HAS NO C/O PAIN THUS FAR. HE HAS NOT REQUIRED O2 SUPPORT. SOME SWELLING TO RIGHT HAND WHERE IV INFILTRATED IV WAS REMOVED HAND ELEVATED AND DSG APPLIED TO SITE. AT THIS TIME PT REMAINS UP TO CHAIR WITH NO NEEDS VOICED.
[2021-01-06 16:00] VITALS: BP 155/95; PULSE 50; RESP 16; TEMP 37.6; O2SAT 97
[2021-01-06 20:00] VITALS: BP 146/82; PULSE 84; RESP 18; TEMP 36.6; O2SAT 93
[2021-01-07 04:00] VITALS: BP 142/64; PULSE 78; RESP 16; TEMP 36.9; O2SAT 94
--- NOTE | 2021-01-07 04:28 | PC.NURSE ---
pt is AxOx3, has been up to chair part of this shift, ambulating with standby assist to bathroom, has had 3 loose BMs this shift, has been treated for hiccups with PRN medication once this shift, no complaints of pain, remains on room air
--- NOTE | 2021-01-07 07:19 | HMH.GSPN ---
Subjective Narrative: Patient resting comfortably. No apparent hiccups. Progress Note: A&P Assessment and Plan for All Diagnoses:: Check potassium. If reasonable may be able to discharge home. Exam Vital signs and Labs for Last 24 Hours: Temp Pulse Resp BP Pulse Ox 98.4 F 78 16 142/64 H 94 L 01/07/21 04:00 01/07/21 04:00 01/07/21 04:00 01/07/21 04:00 01/07/21 04:00 Laboratory Results - last 24 hr 01/06/21 08:50: Sodium 138, Potassium 2.4 L*, Chloride 101, Carbon Dioxide 27, Anion Gap 12.4, BUN 11 D, Creatinine 1.00, Estimated Creat Clear 97, Estimated GFR 76, Est GFR ( Amer) 93, Glucose 99, Calcium 8.2 L I & O for Last 24 hours: Intake & Output 01/04/21 01/05/21 01/06/21 01/07/21 11:59 11:59 11:59 11:59 Intake Total 120 / 120 1460 / 1460 6232 / 6232 3190 / 3190 Output Total 200 / 200 720 / 720 Balance 120 / 120 1460 / 1460 6032 / 6032 2470 / 2470 Weight 184 lb 5 oz 190 lb 6 oz - Constitutional Comments: Sleeping
[2021-01-07 08:00] VITALS: BP 151/92; PULSE 83; RESP 16; TEMP 36.8; O2SAT 99
[2021-01-07 08:34] LABS: Chloride 103 mmol/L (98-107); Sodium 137 mmol/L (136-145)
[2021-01-07 08:37] LABS: Anion Gap 11.5 mEq/L (5-15); Blood Urea Nitrogen 8 mg/dl (9-20); Calcium 7.9 mg/dl (8.4-10.2); Carbon Dioxide 25 mmol/L (22.0-30.0); Creatinine Clearance Estimated 108 mL/min (50-200); Estimated Glomerular Filt Rate 86 ml/min (>60); GFR (African American) 105 ML/MIN (>60); Glucose 94 mg/dl (74-100)
[2021-01-07 08:40] LABS: Potassium 2.5 mmoL/L (3.5-5.1)
--- NOTE | 2021-01-07 08:40 | PC.NURSE ---
Addendum entered by Edie Gan RN 01/07/21 11:05: late entry [id number]-Left a message w/ MD Good's office regarding critical K+ Original Note: Spoke to Jaylene in the lab. Verified pt name, , and room number. Potassium 2.5
[2021-01-07 09:03] LABS: Alanine Aminotransferase 51 U/L (12-78); Albumin Level 3.4 g/dl (3.5-5.0); Alkaline Phosphatase 60 U/L (38-126); Aspartate Amino Transferase 40 U/L (17-59); Bilirubin,Direct 0.4 mg/dl (0.0-0.4); Bilirubin,Total 1.4 mg/dl (0.2-1.3)
[2021-01-07 12:00] VITALS: BP 148/84; PULSE 56; RESP 16; TEMP 36.6; O2SAT 100
[2021-01-07 16:00] VITALS: BP 146/94; PULSE 60; RESP 17; TEMP 37.4; O2SAT 98
[2021-01-07 20:00] VITALS: BP 146/76; PULSE 82; RESP 17; TEMP 36.9; O2SAT 96
[2021-01-08 07:43] LABS: Alanine Aminotransferase 53 U/L (12-78); Albumin Level 3.7 g/dl (3.5-5.0); Albumin/Globulin Ratio 1.3 (1.1-1.8); Alkaline Phosphatase 59 U/L (38-126); Anion Gap 10.8 mEq/L (5-15); Aspartate Amino Transferase 43 U/L (17-59); Bilirubin,Total 1.3 mg/dl (0.2-1.3); Blood Urea Nitrogen 6 mg/dl (9-20); Calcium 8.2 mg/dl (8.4-10.2); Carbon Dioxide 25 mmol/L (22.0-30.0); Chloride 105 mmol/L (98-107); Creatinine Clearance Estimated 108 mL/min (50-200); Estimated Glomerular Filt Rate 86 ml/min (>60); GFR (African American) 105 ML/MIN (>60); Globulin 2.9 g/dL (1.3-3.2); Glucose 107 mg/dl (74-100); Potassium 3.8 mmoL/L (3.5-5.1); Sodium 137 mmol/L (136-145); Total Protein,Serum 6.6 g/dl (6.3-8.2)
[2021-01-08 08:00] VITALS: BP 137/89; PULSE 77; RESP 16; TEMP 36.6; O2SAT 100
--- NOTE | 2021-01-08 08:20 | HMH.GSPN ---
Subjective Narrative: Patient sleeping and resting comfortably without hiccups Progress Note: A&P Assessment and Plan for All Diagnoses:: Potassium is returned at 3.8. Advance diet and likely discharge home. Bilirubin 1.3. Exam Vital signs and Labs for Last 24 Hours: Temp Pulse Resp BP Pulse Ox 98.4 F 82 17 146/76 H 96 01/07/21 20:00 01/07/21 20:00 01/07/21 20:00 01/07/21 20:00 01/07/21 20:00 Laboratory Results - last 24 hr 01/07/21 08:12: Sodium 137, Potassium 2.5 L*, Chloride 103, Carbon Dioxide 25, Anion Gap 11.5, BUN 8 L D, Creatinine 0.90, Estimated Creat Clear 108, Estimated GFR 86, Est GFR ( Amer) 105, Glucose 94, Calcium 7.9 L 01/07/21 08:12: Total Bilirubin 1.4 H, Direct Bilirubin 0.4, Conjugated Bilirubin 0.0, Indirect Bilirubin 1.0 H, Unconjugated Bilirubin 1.0, AST 40, ALT 51, Alkaline Phosphatase 60, Total Protein 6.0 L, Albumin 3.4 L 01/08/21 06:18: Sodium 137, Potassium 3.8 D, Chloride 105, Carbon Dioxide 25, Anion Gap 10.8, BUN 6 L, Creatinine 0.90, Estimated Creat Clear 108, Estimated GFR 86, Est GFR ( Amer) 105, Glucose 107 H, Calcium 8.2 L, Total Bilirubin 1.3, AST 43, ALT 53, Alkaline Phosphatase 59, Total Protein 6.6, Albumin 3.7, Globulin 2.9, Albumin/Globulin Ratio 1.3 I & O for Last 24 hours: Intake & Output 01/05/21 01/06/21 01/07/21 01/08/21 11:59 11:59 11:59 11:59 Intake Total 1460 / 1460 6232 / 6232 3430 / 3430 840 / 840 Output Total 200 / 200 720 / 720 500 / 500 Balance 1460 / 1460 6032 / 6032 2710 / 2710 340 / 340 Weight 190 lb 6 oz - Constitutional no acute distress
--- NOTE | 2021-01-08 10:59 | HMH.DCSUM ---
General - General Admission date:: 01/03/21 Discharge date: 01/08/21 HPI HPI: Patient is a 60-year-old male well-known to me. 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 He recovered well from that. He does have known bilateral inguinal hernias and he underwent open repair of massive right inguinal hernia on 05/15/2020. Recently when he was seen for routine follow-up there was concern for possible incisional hernia. I had him undergo CT scan which revealed findings of multiple incisional hernias. Plan was for laparoscopic repair. This was performed on 12/31/2020. He was found to have numerous small anterior abdominal hernias. He had placement of 8 x 10 inch Bard mesh. Plan was for outpatient management. Patient did well on the day of surgery however family states that the following day he developed nausea with some occasional vomiting and intolerance of appreciable oral intake. They contacted the office 01/02/21 on postoperative day #2. He was advised if he was having significant issues to come to the emergency department. On 01/03/21 he had developed some hiccups. Presented to the emergency department. His hiccups were transiently controlled with Thorazine. Given the inability to tolerate adequate oral nutrition and some vomiting he underwent CT scan. This revealed findings of diffuse dilated small and large bowel with air-fluid levels. There is no evidence of any free air or intra-abdominal fluid. Surgery was contacted. Plan was for admission for postoperative ileus. Hospital Course Hospital Course: Patient was admitted for inpatient management of postoperative ileus. He was noted to have significant hypokalemia. He was given intravenous potassium replacement. His hyperkalemia was somewhat refractory. His hiccups did recur. Patient was given baclofen. His nausea resolved and he was given a limited clear liquid diet which he tolerated without difficulty. He did however have persistent diarrhea. Despite repeated replenishment of potassium he remained hypokalemic with a potassium of 2.4-2.5 for several days. Ultimately after a total of 30 runs of 10 mEq of KCl given intravenously as well as 40 mEq orally 3 times a day and changing his IV fluids to contain 40 mEq of potassium his potassium improved to 3.8. His hiccups did resolve. He was advanced to a full liquid diet which he tolerated without difficulty. Diet was advanced to bland diet. Arrangements were made for discharge home on 01/08/2021. Objective Vital signs: Temp Pulse Resp BP Pulse Ox 97.8 F 77 16 137/89 100 01/08/21 08:00 01/08/21 08:00 01/08/21 08:00 01/08/21 08:00 01/08/21 08:00 Results Labs on day of discharge: Labs from last 24 hours 01/08/21 06:18 Sodium 137 Potassium 3.8 D Chloride 105 Carbon Dioxide 25 Anion Gap 10.8 BUN 6 L Creatinine 0.90 Estimated Creat Clear 108 Estimated GFR 86 Est GFR ( Amer) 105 Glucose 107 H Calcium 8.2 L Total Bilirubin 1.3 AST 43 ALT 53 Alkaline Phosphatase 59 Total Protein 6.6 Albumin 3.7 Globulin 2.9 Albumin/Globulin Ratio 1.3 DS: Diagnosis - Discharge Diagnosis (1) Hypokalemia Status: Acute (2) Ileus Status: Acute Discharge Plan - Patient Discharge Instructions ACTIVITY: No heavy lifting DIET: advance to your usual diet - Follow up Plan Disposition: Home, Self-Care Condition at discharge:: Improved Home Medications: Home Medications Medication Instructions Recorded Confirmed Type Levothyroxine Sodium 125 mcg PO DAILY 04/29/18 01/03/21 History [Levothyroxine 125mcg (0.125mg) Tab] Aspirin [Aspir 81] 81 mg PO DAILY 12/18/19 01/03/21 History Metoprolol Succinate [Toprol XL 100 mg PO DAILY 12/19/19 01/03/21 History 100mg tablet] Montelukast Sodium [Singulair 10mg 10 mg PO PM 12/19/19 01/03/21 History tablet] Hydrocod/Acet 5/325 mg [
== END 2021-01-08 13:10 | disposition home or self-care (01) | DRG 354 ==
LOC: ER 13:15 → 2ND 15:06
PROVIDERS: Admitting Provider Surgery; Emergency Provider Family Medicine; PCP Family Medicine; Visit Provider Surgery
DX: K43.9 Ventral hernia without obstruction or gangrene (principal); K56.7 Ileus, unspecified; K66.0 Peritoneal adhesions (postprocedural) (postinfection); E87.6 Hypokalemia; R06.6 Hiccough; E78.5 Hyperlipidemia, unspecified; I10 Essential (primary) hypertension; E03.9 Hypothyroidism, unspecified; Z79.82 Long term (current) use of aspirin; Z79.899 Other long term (current) drug therapy; Z80.9 Family history of malignant neoplasm, unspecified
CPT/HCPCS: 49652; 36415; 74177; 80048; 80053; 80076; 81001; 85007; 85025; 96365; 96372; 96374; 99284; C1781; G0378; J2405; Q9967; U0003

== ENCOUNTER → 2021-01-17 10:21 | Outpatient (CLI) | payer MEDICAID, SELFPAY ==
[2021-01-17 13:29] LABS: Chloride 105 mmol/L (98-107); Potassium 4.1 mmoL/L (3.5-5.1); Sodium 142 mmol/L (136-145)
[2021-01-17 13:32] LABS: Anion Gap 13.1 mEq/L (5-15); Blood Urea Nitrogen 12 mg/dl (9-20); Calcium 9.1 mg/dl (8.4-10.2); Carbon Dioxide 28 mmol/L (22.0-30.0); Estimated Glomerular Filt Rate 62 ml/min (>60); GFR (African American) 75 ML/MIN (>60); Glucose 103 mg/dl (74-100)
== END ==
PROVIDERS: Visit Provider Surgery
DX: R10.9 Unspecified abdominal pain (principal)
CPT/HCPCS: 36415; 80048

== ENCOUNTER → 2021-06-09 16:31 | Outpatient (CLI) | payer MEDICAID, SELFPAY | PROVIDERS: Visit Provider Surgery | DX: Z01.812 Encounter for preprocedural laboratory examination (principal); Z20.822 Contact with and (suspected) exposure to COVID-19; Z12.11 Encounter for screening for malignant neoplasm of colon | CPT/HCPCS: C9803; U0003; U0005 ==

== ENCOUNTER 2021-06-11 11:16 | Day surgery (SDC) | payer MEDICAID, SELFPAY ==
[2021-06-04 14:11] VITALS: BMI 28.3
[2021-06-11 11:29] VITALS: BP 142/94; PULSE 84; RESP 18; TEMP 36.6; O2SAT 99
--- NOTE | 2021-06-11 12:01 | HMH.ANESCL ---
[facility] Anesthesia Checklist - Patient Identification Patient Identification: Arm Band, Guardian - Structural Data Admitted From: Home Planned Operative Procedure/s: colonoscopy Consent for Planned Operative Procedure(s) Verified: Yes Verified Documents: Surgical Consent, History and Physical - NPO Status Verified Time NPO: 00:00 - Additional verifications Anesthesia Reactions: No Hx Blood Transfusions: No Blood Transfusion Reaction: No - Airway Assessment C-Spine Mobility Assessed: Yes (mp2) TMJ Mobility Assessed: Yes Dentition: Edentulous - Neurological Assessment Level of Consciousness: Awake, Alert - Anesthesia Plan Anesthesia Risk discussed: Yes Anesthesia Plan: Verified ASA Class: III Anesthesia Type: MAC [facility] History I have reviewed the patient's past medical history: Yes Medical History: Reports:: Hyperlipidemia, Hypertension Denies:: Cancer, Diabetes Mellitus Type 1, Diabetes Mellitus Type 2, Internal Pacemaker, MRSA, Seizures *Have you ever received a pneumonia vaccine?: No *Have you received a flu vaccine this season?: No Other Medical History: Reports: Hypothyroidism, Other. Denies: Blood Transfusion Reaction Anesthesia experience/problems:: nac Laterality Cases: Bilateral: Tonsillectomy Other Surgeries: Yes: Cholecystectomy, Colonoscopy, Hernia Repair, Thyroidectomy, Other. No: Pacemaker Amputation: No Fractures: No - *Social History Last grade of school completed: High school graduate Smoking Status: Never smoker Alcohol Intake: never Substance Use Type: denies use *Occupational Status:: disabled Housing: house Household Members: family *Travel in the last 8 weeks: None Family Hx:: Cancer
[2021-06-11 12:11] VITALS: O2SAT 99
--- NOTE | 2021-06-11 12:53 | HMH.SCOPE ---
- Procedure: Date: 06/11/21 Patient Date of :: 1960 Procedure Performed:: Colonoscopy with polypectomy by snare and biopsy forceps Indications:: Patient presents for colonoscopy. He is a 61-year-old male with cognitive deficit. He had presented on 12/18/2019 with cecal volvulus with necrosis requiring laparotomy and right hemicolectomy. Prior to that he was noted to have large bilateral inguinal hernias. He did undergo open right inguinal hernia repair for a large right inguinal hernia on 05/15/2020. This was quite extensive and duration of the procedure was 3 and half hours. Patient was noted developed a ventral hernia on routine follow-up and underwent laparoscopic ventral hernia repair on 12/31/2020 with placement of 8 x 10 inch Bard [employer]ix [employer] mesh. He did have issues postoperatively with ileus and refractory hypokalemia. He has been seen in the office a couple times subsequently and done well. He has had no issues from his hernia. He does still have a known asymptomatic left inguinal hernia. His caregiver states that he has had some rectal bleeding occasionally with bowel movements. This occurs about every 3 days. He also has significant stool frequency moving his bowels multiple times a day. He has never had prior colonoscopy Performing Provider:: Italo Good MD Referring Provider:: Indio Mustafa MD Sedation:: MAC sedation Procedure:: Patient was taken to endoscopy procedure room. He was positioned in lateral decubitus position. Adequate intravenous sedation was achieved with anesthesia titration of propofol. Variable stiffness Olympus colonoscope was inserted via the anus. It was advanced to the ileocolic anastomosis with some difficulty due to significant floppiness and redundancy of the sigmoid colon. He was ultimately advanced to the transverse colon at the ileocolic anastomosis. Colonic preparation was good. There was a small polyp in the transverse colon at the anastomosis and this was partially removed with cold snare with residual polyp removed with biopsy forceps. In the descending colon he had a couple small polyps 1 removed with cold snare and one with biopsy forceps. In the sigmoid colon there was a polyp, possibly merely prolapsing prolapsing polyp , which was removed with cold snare. In the distal sigmoid colon there was a polyp removed with cold snare. In the rectosigmoid there was a polyp removed with cold snare. Retroflexion revealed minimal internal hemorrhoids. Colonoscope was withdrawn. Findings:: Polyps as noted above Internal hemorrhoids Recommendations:: Source of bleeding intermittently may be bowel frequency and internal hemorrhoids. Follow-up colonoscopy 3 to 5 years pending the pathology Complications:: None Estimated blood obtained (mL): 3
[2021-06-11 12:55] VITALS: BP 104/56; PULSE 67; RESP 16; TEMP 37.1; O2SAT 98
[2021-06-11 13:05] VITALS: BP 116/78; PULSE 66; RESP 16; O2SAT 98
[2021-06-11 13:15] VITALS: BP 132/79; PULSE 70; RESP 16; O2SAT 98
[2021-06-11 13:25] VITALS: BP 126/83; PULSE 70; RESP 16; O2SAT 100
== END 2021-06-11 13:25 | disposition home or self-care (01) ==
LOC: OUTP 11:17
PROVIDERS: PCP Family Medicine; Visit Provider Surgery
PROC: 0DJD8ZZ Inspection of Lower Intestinal Tract, Via Natural or Artificial Opening Endoscopic (ICD-10-PCS; CPT 45385; principal; 2021-06-11 13:00)
DX: Z90.49 Acquired absence of other specified parts of digestive tract (principal); K63.5 Polyp of colon; K64.9 Unspecified hemorrhoids; Z87.19 Personal history of other diseases of the digestive system; K56.2 Volvulus; E78.5 Hyperlipidemia, unspecified; I10 Essential (primary) hypertension; E89.0 Postprocedural hypothyroidism; Z80.9 Family history of malignant neoplasm, unspecified; Z79.82 Long term (current) use of aspirin; Z79.899 Other long term (current) drug therapy
CPT/HCPCS: 45385; J2704

== ENCOUNTER 2025-01-29 10:02 | Outpatient (CLI) | payer MEDICAID, SELFPAY ==
--- OUTSIDE RECORDS SUMMARY | 2025-01-29 10:17 | XMS_ITS | Continuity of Care Document ---
Author Organization [facility] & [place], [facility] P-[address] Address [address] [place] [address] Care Team Providers Care Rating Examiner Name Role Phone [place] CARDONA Referring Provider Assessment No assessment recorded. Plan of Treatment Reminders Order Date Submit Date Provider Last Modified By Organization Details Last Modified Time Details Appointments None record ed. Lab None record ed. Referral None record ed. Procedures None record ed. Surgeries None record ed. Imaging None record ed. Medication Orders None record ed. Patient TargetsNo targets recorded. Patient InstructionsNo instructions recorded. Reason for Referral None Reported. Results Created Date Observation Date Name Description Value Unit Range Abnormal Flag Note LastModifiedBy Organization Detail LastModifiedTime 01/11/2001/10/2025 audio gram No observ ation record ed. BARCODE Not Available 2024 10:33:58 Result Notes None recorded. Problems Name Problem SNOMED Code Status Onset Date Resolution Date Notes Provider Name and Address Organization Details Recorded Time Sensorineural hearing loss 94991092 Active 2024 KARINA RAZO [address], [place], [address] , [facility] & [place] 12:42:35 Problem Notes None recorded. Procedures Surgical History Date Name Laterality Status Provider Name and Address Organization Details Recorded Time Cerumen removal with microscope completed Tory Ring MD [address], [place], [address], [facility] & [place] 01/10/2025 10:12:18 Thyroid Surgery completed Nettie Heard [facility] & [place] 01/10/2025 09:32:18 Imaging Results None recorded. Procedure Notes None recorded. Medical Equipment None Reported. Allergies No known drug allergies Medications Name Sig Start Date Stop Date Status Note LastModified by Organization Details LastModified Time metoprolol succinate ER 100 mg tablet,extended release 24 hr TAKE ONE TABLET BY MOUTH ONCE A DAY active Not Available Not Available No t Available garlic 1,000 mg capsule Take by oral route. active Not Available Not Available No t Available levothyroxine 150 mcg tablet TAKE ONE TABLET BY MOUTH EVERY MORNING ON AN EMPTY STOMACH active Not Available Not Available No t Available losartan 25 mg tablet TAKE ONE TABLET BY MOUTH ONCE A DAY active Not Available Not Available No t Available montelukast 10 mg tablet TAKE ONE TABLET BY MOUTH EVERY EVENING active Not Available Not Available No t Available aspirin 81 mg tablet Take 1 tablet every day by oral route. active Not Available Not Available No t Available colestipol 1 gram tablet TAKE 2 TABLETS BY MOUTH ONCE A DAY active Not Available Not Available No t Available Fish Oil active Not Available Not Avai lable Not Available Vitals Date Recorded Body weight Body temperature Body mass index (BMI) Body height Provider Name and Address Organization Details Last Updated DateTime 01/10/2025 08928.44 g 96.5 [degF] 36.3 kg/m2 160.02 [facility] [place] 01/10/2025 09:29:34 Social History None recorded. Functional Status None recorded. Mental Status None recorded. Family History Nothing Reported. Medical History Condition Response Allergies/Hayfever Y Thyroid Problems Y Hyperlipidemia Y Hypertension Y Past Encounters Encounter ID Performer Location Encounter Start Date Encounter Closed Date Diagnosis/Indication Diagnosis SNOMED-CT Code Diagnosis ICD10 Code Diagnosis Note [id number] KARINA RAZO [facility] [place] [address] [facility], [facility] [place] [address] 12/27/2024 11:01:34 12/27/2024 11:36:53 Sensorineural hearing loss 87608920 H90.3 [id number] Tory Ring MD [facility] [place] [address] [address] [facility] [place] [address] 01/10/2025 09:18:38 01/10/2025 10:07:20 Impacted cerumen of bilateral ears 9962048076 052048 H61.23 Ears were cleaned under the microscope without difficulty . I do recommend baby oil drops for cerumen management a couple of drops to the external auditory canal a couple times a week. Sensorineu ral hearing loss of bilateral ears 869728177 H90.3 patient and family are working with Walter Carreon for possible hearing aids. [id number] KARINA RAZO [facility] [place] [address] [place] [address] 01/10/2025 09:18:56 01/10/2025 10:11:40 Sensorineural hearing loss 32364869 H90.3 Health Concerns Section Related Observation LastModified by Organization Detai ls LastModified Time None Recorded Concern Status LastModified by Organization Details LastModified Time None Recorded Payers Encounter Date Sequence Insurance Name Policy Number Policy Orellana Covered Member ID Orellana Member ID Guarantor Name 01/10/2025 1 [place] [employer] [place] FFS/TRADITIO NAL Mervin Timothy [id number] Mervin Timothy Notes Date Note Type Note Provider Name and Address Organization Details Recorded Time 01/10/2025 text/html 01/10/25-Mr. 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 He was seen by Walter Carreon for an audiogram but was found to have significantly impacted cerumen. They have been using Debrox. There is concern for hearing loss over the last several years. Tory Ring MD [address] [facility], [place], [address], [facility] - [place] & [place] 01/10/2025 10:25:34 01/10/2025 text/html Mr. Aguirre was seen today for an audiologic evaluation due to long-standing hearing loss bilaterally. He reports significant improvement following cerumen removal bilaterally this date by Dr. Tory Ring MD. Mr. Aguirre previously wore hearing aids, however, they were lost. Otoscopic inspection was unremarkable bilaterally following cerumen removal. Audiometric testing revealed a mild, sloping to severe, low through high freq SNHL bilaterally with fair word rec scores. 1-Discussed findings with Mr. Aguirre and his guardian. 2-F/u with Dr. Ring this date. 3-F/u hearing testing annually 4-Rec hearing aids bilaterally; they will consider. WALTER CARREON, AUD [address] [facility], [place], [address], [facility] - [facility] - [place] & [place] 01/10/2025 10:54:13
--- OUTSIDE RECORDS SUMMARY | 2025-01-29 10:17 | XMS_ITS | Continuity of Care Document ---
Author Organization [facility] & [place], [facility] P-[address] Address [address] [place] [address] Care Team Providers Care Freight Engineer Name Role Phone [place] CARDONA Referring Provider [phone] Assessment No assessment recorded. Plan of Treatment [...] Organization Details Recorded Time Sensorineural hearing loss 19194914 Active 2024 KARINA RAZO [address], [place], [address] , [facility] & [place] 12:42:35 Problem Notes None recorded. Procedures Surgical History Date Name Laterality Status Provider Name and Address Organization Details Recorded Time Cerumen removal with microscope completed Tory Ring MD [address], [place], [address], [facility] & [place] 01/10/2025 10:12:18 Thyroid Surgery completed Nettie Heard [facility] & [place] 01/10/2025 09:32:18 Imaging Results None recorded. Procedure [...] Address Organization Details Last Updated DateTime 01/10/2025 49756.44 g 96.5 [degF] 36.3 kg/m2 160.02 [facility] [place] 01/10/2025 09:29:34 Social History None recorded. Functional Status None recorded. Mental Status None recorded. Family History Nothing Reported. Medical History Condition Response Allergies/Hayfever Y Thyroid Problems Y Hyperlipidemia Y Hypertension Y Past Encounters Encounter ID Performer Location Encounter Start Date Encounter Closed Date Diagnosis/Indication Diagnosis SNOMED-CT Code Diagnosis ICD10 Code Diagnosis Note [id number] KARINA RAZO [facility] [place] [address] [facility], [facility] [place] [address] 12/27/2024 11:01:34 12/27/2024 11:36:53 Sensorineural hearing loss 62645352 H90.3 [id number] Tory Ring MD [facility] [place] [address] [address] [facility] [place] [address] 01/10/2025 09:18:38 01/10/2025 10:07:20 Impacted cerumen of bilateral ears 9529525255 677702 H61.23 Ears were cleaned under the microscope without difficulty . I do recommend baby oil drops for cerumen management a couple of drops to the external auditory canal a couple times a week. Sensorineu ral hearing loss of bilateral ears 377639216 H90.3 patient and family are working with Walter Carreon for possible hearing aids. [id number] KARINA RAZO [facility] [place] [address] [place] [address] 01/10/2025 09:18:56 01/10/2025 10:11:40 Sensorineural hearing loss 74177564 H90.3 Health Concerns Section Related Observation LastModified by Organization Detai ls LastModified Time None Recorded Concern Status LastModified by Organization Details LastModified Time None Recorded Payers Encounter Date Sequence Insurance Name Policy Number Policy Orellana Covered Member ID Orellana Member ID Guarantor Name 01/10/2025 1 [place] [employer] [place]TRADIT[place] NAL Mervin Timothy [id number] Mervin Timothy Notes Date Note Type Note Provider Name and Address Organization Details Recorded Time 01/10/2025 text/html 01/10/25-Mr. 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 He was seen by Walter Carreon for an audiogram but was found to have significantly impacted cerumen. They have been using Debrox. There is concern for hearing loss over the last several years. Tory Ring MD [address] [facility], [place], [address], [facility] - [place] & [place] 01/10/2025 10:25:34 01/10/2025 text/html Mr. Aguirre was [...] they will consider. WALTER CARREON, AUD [address] [facility], [place], [address], [facility] - [facility] - [place] & [place] 01/10/2025 10:54:13
--- OUTSIDE RECORDS SUMMARY | 2025-01-29 10:17 | XMS_ITS | Data Portability ---
Author Organization [facility] & [facility] ADMIN Address [address] [place] [address] Care Team Providers Care Tube Dispatcher Name Role Phone [place] CARDONA Referring Provider [phone] Assessment No assessment recorded. Plan of Treatment [...] Abnormal Flag Note LastModifiedBy Organization Detail LastModifiedTime 01/11/20 25 01/10/2025 audio gram No observ ation record ed. BARCODE Not Available 2024 10:33:58 Result Notes None recorded. Problems Name Problem SNOMED Code Status Onset Date Resolution Date Notes Provider Name and Address Organization Details Recorded Time Sensorineural hearing loss 89846820 Active 2024 KARINA RAZO [address], [place], [address] , [facility] & [place] 12:42:35 Problem Notes None recorded. Procedures Surgical History Date Name Laterality Status Provider Name and Address Organization Details Recorded Time Cerumen removal with microscope completed Tory Ring MD [address], [place], [address], [facility] & [place] 01/10/2025 10:12:18 Thyroid Surgery completed Nettie Heard [facility] & [place] 01/10/2025 09:32:18 Imaging Results None recorded. Procedure [...] Address Organization Details Last Updated DateTime 01/10/2025 86951.44 g 96.5 [degF] 36.3 kg/m2 160.02 cm [facility] 01/10/2025 09:29:34 Social History None recorded. Functional Status None recorded. Mental Status None recorded. Family History Nothing Reported. Medical History Condition Response Allergies/Hayfever Y Thyroid Problems Y Hyperlipidemia Y Hypertension Y Past Encounters Encounter ID Performer Location Encounter Start Date Encounter Closed Date Diagnosis/Indication Diagnosis SNOMED-CT Code Diagnosis ICD10 Code Diagnosis Note [id number] KARINA RAZO [facility] [place] [address] 12/27/2024 11:01:34 12/27/2024 11:36:53 Sensorineural hearing loss 69411161 H90.3 [id number] Tory Ring MD [facility] of [address] [address] 01/10/2025 09:18:38 01/10/2025 10:07:20 Impacted cerumen of bilateral ears 5370552930 189437 H61.23 Ears were cleaned under the microscope without difficulty . I do recommend baby oil drops for cerumen management a couple of drops to the external auditory canal a couple times a week. Sensorineu ral hearing loss of bilateral ears 946835878 H90.3 patient and family are working with Walter Carreon for possible hearing aids. [id number] KARINA RAZO [facility] [place] [address] [place] [address] 01/10/2025 09:18:56 01/10/2025 10:11:40 Sensorineural hearing loss 02593005 H90.3 Health Concerns Section Related Observation LastModified by Organization Detai ls LastModified Time None Recorded Concern Status LastModified by Organization Details LastModified Time None Recorded Advance Directives Directive None Recorded Payers Insurance Date Sequence Insurance Name Policy Number Policy Orellana Covered Member ID Orellana Member ID Guarantor Name 01/09/2025 1 [place] [employer] [place]TRADITIO NAL Mervin Timothy [id number] Mervin Timothy Notes Date Note Type Note Provider Name and Address Organization Details Recorded Time 12/27/2024 text/html Patient was seen today for a hearing aid service. Cleaned and adjusted hearing aids this date. KARINA RAZO [address], [place], [address], [facility] & [place] 12/27/2024 12:42:49 01/10/2025 text/html 01/10/25-Mr. 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 He was seen by Walter Carreon for an audiogram but was found to have significantly impacted cerumen. They have been using Debrox. There is concern for hearing loss over the last several years. Tory Ring MD [address], [place], [address], [facility] & [place] 01/10/2025 10:25:34 01/10/2025 text/html Mr. Aguirre was [...] they will consider. WALTER CARREON, AUD [address] [facility], [place], [address], [facility] - NT - [place] & [place] 01/10/2025 10:54:13
--- OUTSIDE RECORDS SUMMARY | 2025-01-29 10:17 | XMS_ITS | Continuity of Care Document ---
Author Organization [facility] & [place], [facility] P-[address] Address [address] [place] [address] Care Team Providers Care Pulp And Paper Tester Name Role Phone NJ CARDONA Referring Provider [...] Organization Details Recorded Time Sensorineural hearing loss 24574353 Active 2024 KARINA RAZO [address], [place], [address] , [facility] & [place] 12:42:35 Problem Notes None recorded. Procedures Surgical History Date Name Laterality Status Provider Name and Address Organization Details Recorded Time Cerumen removal with microscope completed Tory Ring MD [address], [place], [address], [facility] & [place] 01/10/2025 10:12:18 Thyroid Surgery completed Nettie Heard [facility] & [place] 01/10/2025 09:32:18 Imaging Results None recorded. Procedure [...] Available Not Avai lable Not Available Vitals None Recorded Social History None recorded. Functional Status None recorded. Mental Status None recorded. Family History Nothing Reported. Medical History Condition Response Allergies/Hayfever Y Thyroid Problems Y Hyperlipidemia Y Hypertension Y Past Encounters Encounter ID Performer Location Encounter Start Date Encounter Closed Date Diagnosis/Indication Diagnosis SNOMED-CT Code Diagnosis ICD10 Code Diagnosis Note [id number] KARINA RAZO [facility] [place] [address] [address] [place] [address] 12/27/2024 11:01:34 12/27/2024 11:36:53 Sensorineural hearing loss 99708200 H90.3 Health Concerns Section Related Observation LastModified by Organization Detai ls LastModified Time None Recorded Concern Status LastModified by Organization Details LastModified Time None Recorded Payers Encounter Date Sequence Insurance Name Policy Number Policy Orellana Covered Member ID Orellana Member ID Guarantor Name 12/27/2024 1 [place] [employer] [place]/TRADIT[place] NAL Mervin Aguirre [id number] Mervin Aguirre Notes Date Note Type Note Provider Name and Address Organization Details Recorded Time 12/27/2024 text/html Patient was seen today for a hearing aid service. Cleaned and adjusted hearing aids this date. KARINA RAZO [address], [place], [address], [place] - [facility] - [place] & [place] 12/27/2024 12:42:49
--- NOTE | 2025-01-29 10:28 | CT_ITS ---
FINAL REPORT CLINICAL HISTORY: LOWER RESP INFECTION COMPARISON: None FINDINGS: CT CHEST without contrast COMPARISON: None . TECHNIQUE: Axial CT without contrast This study was performed with techniques to keep radiation doses as low as reasonably achievable, (ALARA). Individualized dose reduction techniques using automated exposure control or adjustment of mA and/or kV according to the patient's size were employed. FINDINGS: No acute lung disease is present . There is a 3 mm right upper lobe nodule best seen on image #16 of series 2. There is an oval subpleural nodule in the left lower lobe, measuring 5 mm in size, best seen on image #43 of series 2. No pleural or pericardial effusion is seen . No adenopathy or mass lesion is present . Fatty infiltration of the liver and mild splenomegaly are present in the upper abdomen. There is an asymmetric soft tissue density in the left breast, favor unilateral gynecomastia. IMPRESSION: 1. No infiltrates are noted to suggest pneumonia. 2. 2 nodules are identified, recommend 6-month follow-up chest CT for further evaluation. This study was performed using automated techniques to achieve radiation exposure as low as reasonably achievable Reviewed, Interpreted and Dictated by Xochitl Bear MD Transcribed by Susanne Herr Authenticated and [facility]
== END 2025-01-29 23:59 | disposition home or self-care (01) ==
LOC: RAD 10:04
PROVIDERS: PCP Nurse Practitioner; Visit Provider Nurse Practitioner
DX: R91.8 Other nonspecific abnormal finding of lung field (principal); J22 Unspecified acute lower respiratory infection
CPT/HCPCS: 71250

== ENCOUNTER 2025-06-06 09:07 | Outpatient (CLI) | payer MEDICAID, SELFPAY ==
--- NOTE | 2025-06-06 09:12 | CT_ITS ---
FINAL REPORT TECHNIQUE: Thin section axial images are obtained through the abdomen and pelvis after intravenous contrast. Reconstruction images were obtained from the axial data. Exam was performed using dose reduction techniques. CLINICAL HISTORY: ABDMNL PAIN COMPARISON: 01/03/2021 FINDINGS: LUNG BASES: Lung bases are clear. Heart size is normal. LIVER: Fatty infiltrated with a nodular contour suggesting cirrhosis. No focal lesion. GALLBLADDER/BILIARY SYSTEM: Gallbladder is absent. No gallstones. No biliary dilatation. SPLEEN: Enlarged measuring slightly greater than 17 cm. PANCREAS: Unremarkable. ADRENALS: Unremarkable. KIDNEYS/URETERS/BLADDER: No hydronephrosis, renal mass, or renal stone. Urinary bladder incompletely distended. GI TRACT: Changes from partial right colectomy. Duodenum does not cross the midline suggesting a component of malrotation. No evidence of small bowel obstruction on today's exam. Fluid in the distal remaining colon may represent colitis. PELVIC ORGANS: Prostate mildly enlarged. LYMPH NODES/RETROPERITONEUM/MESENTERY: Multiple new enlarged lymph nodes in the abdomen. A portal lymph node measures 22 mm. Aortocaval lymph node measures 17 mm. No abdominal aortic aneurysm. ABDOMINAL WALL: Stable moderate fat-containing left inguinal hernia. Changes from prior right inguinal hernia repair. Previously seen fluid collections anterior to the abdominal wall have resolved.. FREE FLUID: No ascites. OTHER: Filling defect within the superior mesenteric vein just proximal to the portal confluence concerning for superior mesenteric venous thrombosis. BONES: No acute osseous abnormality. IMPRESSION: Mild fluid distention of the remaining colon concerning for colitis. Filling defect superior mesenteric vein. Delayed imaging not obtained. 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 New lymphadenopathy in the upper abdomen. Not uncommon in patients with liver disease. However, if the patient has had colectomy for cancer, metastatic disease not excluded. Reviewed, Interpreted and Dictated by Soheila Hair MD Transcribed by Joy Saini Authenticated and . [facility]
[2025-06-06 09:50] LABS: Blood Urea Nitrogen 9 mg/dl (9-20); Creatinine,Serum 1.20 mg/dl (0.66-1.25)
[2025-06-06 09:51] LABS: Estimated Glomerular Filt Rate 61 ml/min (>60); GFR (African American) 74 ML/MIN (>60)
[2025-06-06] MEDS: SODIUM CHLORIDE 0.9% 10ML SYR (RAD ONLY) 10 ML IV (10:40)
[2025-06-06] MEDS: IOPAMIDOL-370 (76%);100ML BOTTLE 75 ML IV (10:40)
== END 2025-06-06 23:59 | disposition home or self-care (01) ==
LOC: RAD 09:08
PROVIDERS: PCP Nurse Practitioner; Visit Provider Nurse Practitioner
DX: K74.60 Unspecified cirrhosis of liver (principal); I99.8 Other disorder of circulatory system; R16.1 Splenomegaly, not elsewhere classified; R93.3 Abnormal findings on diagnostic imaging of other parts of digestive tract; R59.0 Localized enlarged lymph nodes; R10.9 Unspecified abdominal pain
CPT/HCPCS: 36415; 74177; 82565; 84520; Q9967

== ENCOUNTER 2025-06-11 13:04 | Emergency (ER) | payer MEDICAID, SELFPAY ==
[2025-06-11 13:11] VITALS: BP 180/107; PULSE 63; RESP 18; TEMP 37; O2SAT 97; BMI 33.5
--- NOTE | 2025-06-11 13:22 | CT_ITS ---
FINAL REPORT TECHNIQUE: Thin section axial images were obtained through the abdomen and pelvis after contrast injection per CT angiogram protocol. Multiplanar reconstruction images were obtained from the axial data. This exam was performed with techniques to keep radiation dose as low as reasonably achievable. This includes automated exposure control, adjustment of the MA and KVP, and iterative reconstruction technique. CLINICAL HISTORY: scan showed conc. for mesenteric thrombus last week COMPARISON: CT of the abdomen and pelvis 06/06/2025 FINDINGS: CTA: No abdominal aortic aneurysm or aortic dissection. There is a separate origin of the splenic artery from the aorta. The celiac axis, superior mesenteric artery, and inferior mesenteric artery are patent without stenosis. The renal arteries are patent. The common iliac arteries and visualized portions of the internal and external iliac arteries are patent. No significant stenosis. The venous structures are not opacified, and are not visualized. NONVASCULAR: The liver is nodular in contour. The gallbladder is present. The solid abdominal organs are without acute abnormality. The GI tract is without acute abnormality, without evidence of bowel obstruction. No lymphadenopathy or free fluid. In the pelvis bilateral inguinal hernias are present containing fat. No ascites is identified. IMPRESSION: 1. No evidence of abdominal aortic aneurysm or dissection. No significant arterial stenosis. 2. The superior mesenteric vein and other venous structures are not evaluated on this exam, which is tailored to the arterial system. SMV thrombosis is not excluded. Reviewed, Interpreted and Dictated by Soheila Hair MD Transcribed by Susanne Herr Authenticated and [facility]
--- NOTE | 2025-06-11 13:27 | [facility].EDGENADL ---
Discharge Plan Disposition Patient Disposition: Home, Self-Care Prescriptions Prescriptions: No Action losartan 25 mg tablet 25 mg PO DAILY levothyroxine 125 mcg tablet 125 mcg PO DAILY 90 Days Qty: 90 2RF metoprolol succinate 100 mg tablet extended release 24 hr 100 mg PO DAILY 90 Days Qty: 90 1RF aspirin 81 MG tablet,delayed release (DR/EC) 81 mg PO DAILY montelukast 10 MG tablet 10 mg PO PM garlic 1 EACH tablet 1,000 mg PO DAILY omega-3 fatty acids-fish oil 1 EACH capsule 1 each PO DAILY Referrals Follow up/Referrals: Beltran Gaytan II, MD [Staff Physician, Gastroenterology] - See instructions Martha Payan APRN [Primary Care Provider, Medical] - See instructions Activity Restrictions/Add. Instructions Additional Instructions/Restrictions: We will follow-up with Dr. Gaytan. We will call with that appointment. Clinical Impressions Clinical Impression: Abdominal pain, Colitis Instructions Patient Instructions: DI for Acute Abdominal Pain, DI for Colitis Print Language Print Language: Occitan Discharge ED Provider: Benny Kendall Adult HPI General Chief complaint: Abdominal Pain Stated complaint: Abd. Pain check per Татьяна Payan Time Seen by Provider: 06/11/25 13:07 Mode of Arrival: Ambulatory Source of Information: Patient and Relative Description of Symptoms (Recalled from ER Triage Doc. by RN): 2 weeks ago abdominal pain started. Pt family states he had an abdominal CT done and were told to come to the ED History of Present Illness HPI narrative: 65-year-old male presents to the ED today for abdominal pain that started 2 weeks ago. He had a CT scan done that resulted today feeling in the superior mesenteric vein. Concern for vein thrombosis. Patient and I discussed this as he is very nervous in general about doctors and hospitals. His family is here with him today. Related Data Home Medications ?Medication ?Instructions ?Recorded ?Confirmed aspirin 81 mg tablet,delayed 81 mg PO DAILY Heart disease 12/18/19 06/30/21 release montelukast 10 mg tablet 10 mg PO PM ALLERGIES 12/19/19 06/30/21 garlic 1,000 mg PO DAILY Supplement 06/04/21 06/30/21 omega-3 fatty acids-fish oil 340 1 each PO DAILY Supplement 06/04/21 06/30/21 mg-1,000 mg capsule losartan 25 mg tablet 25 mg PO DAILY 01/23/22 01/23/22 Previous Rx's ?Medication ?Instructions ?Recorded levothyroxine 125 mcg tablet 125 mcg PO DAILY thyroid 90 days 04/02/23 #90 tabs metoprolol succinate 100 mg 100 mg PO DAILY High blood 04/06/23 tablet,extended release 24 hr pressure 90 days #90 tabs Allergies Allergy/AdvReac Type Severity Reaction Status Date / Time No Known Allergies Allergy Verified 01/23/22 11:20 [facility] Disclaimer: The information contained in this section may have been updated after the patient was seen, as this information can be updated by other users. Social History Smoking Status: Never smoker second hand exposure: No alcohol intake: never substance use type: denies use current occupational status: disabled Travel in the last 8 weeks?: None household members: family housing: house current occupational exposures/hazards: No caffeine: Yes Have you lived/traveled outside [place] in past 30 days?: No Contact w/someone who lives/traveled outside [place] past 30 days?: No Exposure to someone with infectious disease in past 14 days?: No Do you have a fever (greater than 100.4 F or 38 C)?: No Have you tested positive for COVID-19?: No Exposed to someone with COVID-19 in past 14 days?: No Do you have a sore throat?: No Do you have a cough?: No Do you have any weakness?: No Do you have any diarrhea?: No Are you experiencing any unusual bleeding?: No Do you have any muscle aches/pain?: No Do you have any abdominal pain?: Yes Are you experiencing loss of taste or smell?: No Other Medical History Have you received the Flu Vaccine for this season: No Have you received the Pneumonia Vaccine: No ROS Obtained: Yes Systems reviewed as appropriate & no additional complaints except as documented Constitutional Constitutional: Reports as per HPI Physical Exam General General appearance: alert and anxious Head Head exam: normocephalic Eye Eye exam: Present PERRL and EOMI ENT ENT exam: Present normal oropharynx and mucous membranes moist Neck Neck exam: Present full ROM and trachea midline Respiratory Respiratory exam: Present normal lung sounds bilaterally Cardiovascular Cardiovascular exam: Present regular rate, normal rhythm, normal heart sounds, +S1 and +S2 Abdominal Exam Abdominal exam: Present soft Extremities Exam Extremities exam: Present normal inspection, full ROM and normal capillary refill Neurological Exam Neurological exam: Present alert and oriented X3 Skin Skin exam: Present warm and dry Medical Decision Making Medical Records Screening: Per USPSTF and CDC recommendations, given the prevalence of disease in our region, it is our hospital?s policy to screen for HIV and viral Hepatitis for all patients aged 18 and over and those with ongoing risk factors. Mateo Inquiry Pt receiving controlled substance: No Mateo was queried for this patient: No Vital Signs: 06/11/25 13:11 06/11/25 13:30 06/11/25 14:00 Temperature 98.6 F Temperature Source Oral Pulse Rate 62 53 L Pulse Rate [Right] 63 Respiratory Rate 18 Blood Pressure 146/89 H 146/89 H Blood Pressure [Right Arm] 180/107 H Blood Pressure Mean 108 Blood Pressure Mean [Right Arm] 131 Blood Pressure Source [Right Arm] Automatic Cuff Blood Pressure Position [Right Arm] Sitting 02 Sat by Pulse Oximetry 97 99 99 Oxygen Delivery Method Room Air 06/11/25 15:30 Temperature Temperature Source Pulse Rate 49 L Pulse Rate [Right] Respiratory Rate Blood Pressure 130/88 Blood Pressure [Right Arm] Blood Pressure Mean Blood Pressure Mean [Right Arm] Blood Pressure Source [Right Arm] Blood Pressure Position [Right Arm] 02 Sat by Pulse Oximetry 100 Oxygen Delivery Method Lab Data Lab Results 06/11/25 13:29: WBC 8.1, RBC 4.90, Hgb 14.7, Hct 43.7, MCV 89.2, MCH 30.0, MCHC 33.6, RDW 15.0, Plt Count 183, MPV 10.2, Neut % (Auto) 66.3, Lymph % (Auto) 23.7, Dukes % (Auto) 6.6, Eos % (Auto) 1.8, Baso % (Auto) 1.2, Neut # (Auto) 5.4, Lymph # (Auto) 1.9, Dukes # (Auto) 0.5, Eos # (Auto) 0.2, Baso # (Auto) 0.1, PT 12.2, INR 1.11 H, APTT 23.3, Sodium 143, Potassium 4.2, Chloride 105, Carbon Dioxide 23, Anion Gap 19.2 H, BUN 10, Creatinine 1.10, Estimated Creat Clear 88, Estimated GFR 67, Est GFR ( Amer) 82, Glucose 136 H, Calcium 8.8, Magnesium 2.1, Total Bilirubin 2.2 H, AST 66 H, ALT 54, Alkaline Phosphatase 54, Troponin I 0.01, Total Protein 8.9 H D, Albumin 4.5, Globulin 4.4 H, Albumin/Globulin Ratio 1.0 L, Lipase 109 06/11/25 14:51: Urine Color Yellow, Urine Appearance Clear, Urine pH 5.5, Ur Specific [place] <= 1.005, Urine Protein Negative, Urine Glucose (UA) Negative, Urine Ketones Negative, Urine Blood Negative, Urine Nitrate Negative, Urine Bilirubin Negative, Urine Urobilinogen 0.2, Ur Leukocyte Esterase Negative, Urine RBC None, Urine WBC Occasional, Ur Squamous Epith Cells None, Urine Bacteria None 06/11/25 13:29 06/11/25 13:29 Orders (Tests/Meds): ED MEDICATIONS Generic Name Dose Route Start Last Admin Trade Name Philipp PRN Reason Stop Dose Admin Sodium Chloride 10 ml 06/11/25 13:58 06/11/25 13:59 Sodium Chloride 0.9% 10ml Syr (Rad Only) IV 07/11/25 13:57 10 ml NEEDED PRN Administration Maintain IV Site Sodium Chloride 10 ml 06/11/25 15:56 Sodium Chloride 0.9% 10ml Syr (Rad Only) IV 07/11/25 15:55 NEEDED PRN Maintain IV Site Discontinued Medications Generic Name Dose Route Start Last Admin Trade Name Frehollie PRN Reason Stop Dose Admin Sodium Chloride 1,000 mls @ 999 mls/hr 06/11/25 15:48 06/11/25 16:05 Sod Chlor 0.9% 1000ml Bag IV 06/11/25 16:48 999 mls/hr .Q1H1M ONE Administration Iopamidol 80 ml 06/11/25 13:58 06/11/25 13:59 Iopamidol-370 (76%);100ml Bottle IV 06/11/25 13:59 80 ml ONCE ONE Administration Iopamidol 75 ml 06/11/25 15:56 06/11/25 15:57 Iopamidol-370 (76%);100ml Bottle IV 06/11/25 15:57 75 ml ONCE ONE Administration Sodium Chloride 50 ml 06/11/25 13:58 06/11/25 13:58 0.9 % Sodium Chloride 50 Ml Vial IV 06/11/25 13:59 50 ml ONCE ONE Administration ORDERS Category Date Time Status CT abdomen pelvis w con Stat Cat Scan 06/11/25 15:[address] angio abdomen pelvis Stat Cat Scan 06/11/25 13:22 Completed CBC [Complete Blood Count Auto Diff] Stat Lab 06/11/25 13:29 Completed Comprehensive Metabolic Panel Stat Lab 06/11/25 13:29 Completed Lactate Venous Stat Lab 06/11/25 13:35 Ordered Lipase Stat Lab 06/11/25 13:29 Completed Magnesium Stat Lab 06/11/25 13:29 Completed PT INR [Prothrombin Time INR] Stat Lab 06/11/25 13:29 Completed PTT [Activated Partial Thrombo Time] Stat Lab 06/11/25 13:29 Completed Trop I [Troponin I] Stat Lab 06/11/25 13:29 Completed Urinalysis and Microscopic Stat Lab 06/11/25 14:51 Completed Medical Decision Narrative: patient is a 65-year-old male presenting to the emergency department for evaluation of abnormal CT concern for mesenteric vein thrombosis. Patient is hemodynamically stable and nontoxic-appearing upon arrival, afebrile. Differential diagnosis includes thrombosis, colitis, among others. Workup will be conducted with hematologic labs, specific imaging, provocative tests. Initial inventions include analgesics, antibiotics. Initial workup reviewed by me hematologic labs are remarkable for white blood cell count of 8, H&H are normal, electrolytes are normal, glucose was 136, total bili was chronically high at 2.2 AST is 66 which is little bit high for patient, troponin is normal urine was okay. The additional images were obtained in a delayed fashion to evaluate the mesenteric vein no mesenteric vein thrombosis is visualized mesenteric vein opacities without evidence of filling defect. I did discuss filling times and delayed images with Dr. Hair. I also had a discussion about this with radiology a couple of times so we can get the delay times correct. Patient and family and I had several conversations throughout the ER stay. Patient is safe for discharge home at this time. We will have a follow-up with Dr. Gaytan to determine cirrhosis and colitis Critical Care Critical Care Time Critical Care Time: No
[2025-06-11 13:30] VITALS: BP 146/89; PULSE 62; O2SAT 99
[2025-06-11 13:38] LABS: Hematocrit 43.7 % (42.0-52.0); Hemoglobin 14.7 g/dL (14.1-18.0); Immature Granulocytes % 0.4 %; Mean Corpuscular HGB Conc 33.6 g/dL (31.8-35.4); Mean Corpuscular Hemoglobin 30.0 pg (27.0-31.2); Mean Corpuscular Volume 89.2 fl (80-94); Nucleated Red Blood Cells % 0 %; Platelet Count 183 K/mm3 (142-424); Red Blood Count 4.90 M/mm3 (4.60-6.20); Red Cell Distribution Width-SD 49.1 fL; White Blood Count 8.1 K/mm3 (4.8-10.8)
[2025-06-11 13:44] LABS: Albumin Level 4.5 g/dl (3.5-5.0); Chloride 105 mmol/L (98-107)
[2025-06-11 13:45] LABS: Potassium 4.2 mmoL/L (3.5-5.1); Sodium 143 mmol/L (136-145)
[2025-06-11 13:47] LABS: Alanine Aminotransferase 54 U/L (12-78); Anion Gap 19.2 mEq/L (5-15); Aspartate Amino Transferase 66 U/L (17-59); Blood Urea Nitrogen 10 mg/dl (9-20); Carbon Dioxide 23 mmol/L (22.0-30.0); Creatinine Clearance Estimated 88 mL/min (50-200); Creatinine,Serum 1.10 mg/dl (0.66-1.25); Estimated Glomerular Filt Rate 67 ml/min (>60); GFR (African American) 82 ML/MIN (>60)
[2025-06-11 13:48] LABS: Activated Partial Thrombo Time 23.3 seconds (22.8-30.6); Albumin/Globulin Ratio 1.0 (1.1-1.8); Alkaline Phosphatase 54 U/L (38-126); Bilirubin,Total 2.2 mg/dl (0.2-1.3); Calcium 8.8 mg/dl (8.4-10.2); Globulin 4.4 g/dL (1.3-3.2); Glucose 136 mg/dl (74-100); INR 1.11 (0.9-1.1); Lipase 109 U/L (23-300); Magnesium 2.1 mg/dl (1.6-2.3); Prothrombin Time 12.2 seconds (10.1-12.5); Total Protein,Serum 8.9 g/dl (6.3-8.2)
[2025-06-11] MEDS: 0.9 % SODIUM CHLORIDE 50 ML VIAL IV (13:58)
[2025-06-11] MEDS: IOPAMIDOL-370 (76%);100ML BOTTLE 80 ML IV (13:59)
[2025-06-11] MEDS: SODIUM CHLORIDE 0.9% 10ML SYR (RAD ONLY) 10 ML IV (13:59)
[2025-06-11 14:00] VITALS: BP 146/89; PULSE 53; O2SAT 99
[2025-06-11 14:03] LABS: Troponin I 0.01 ng/ml (0.00-0.034)
[2025-06-11 14:55] LABS: Microscopic, Urine URINE MICROSCOPIC (MICROSCOPIC)
[2025-06-11 14:58] LABS: Bilirubin,Urine Negative (Negative); Color,Urine YELLOW (Yellow); Glucose,Urine (UA) Negative (Negative); Ketones,Urine Negative (Negative); Leukocyte Esterase,Urine Negative (Negative); PH,Urine 5.5 (5.0-8.5); Protein,Urine Negative (Negative); Specific Gravity, Urine <= 1.005 (1.005-1.030); Urobilinogen,Urine 0.2 EU/dl (0.2)
[2025-06-11 15:30] VITALS: BP 130/88; PULSE 49; O2SAT 100
[2025-06-11 15:31] LABS: WBC,Urine Occasional #/hpf (0-3)
[2025-06-11] MEDS: IOPAMIDOL-370 (76%);100ML BOTTLE 75 ML IV (15:57)
[2025-06-11] MEDS: 0.9 % SODIUM CHLORIDE 1000ML 1,000 ML 999 ML IV (16:05)
[2025-06-11 17:53] VITALS: BP 115/73; PULSE 64; RESP 18; TEMP 36.7; O2SAT 98
== END 2025-06-11 17:54 | disposition home or self-care (01) ==
PROVIDERS: Emergency Provider Student in an Organized Health Care Education/Training Program; PCP Nurse Practitioner
DX: R10.9 Unspecified abdominal pain (principal); K52.9 Noninfective gastroenteritis and colitis, unspecified
CPT/HCPCS: 74174; 74177; 80053; 81001; 83690; 83735; 84484; 85025; 85610; 85730; 96360; 99285; J7030; Q9967